=== PATIENT | female | born 1950 | race Caucasian/White ===

== ENCOUNTER 2020-10-15 07:36 | Outpatient (REF) | payer MEDICARE, SELFPAY ==
[2020-10-15 08:28] LABS: MANUAL DIFF FLAG NO
[2020-10-15 08:33] LABS: Basophils Percent Auto 0.3 % (0-2); Eosinophils Absolute Auto 0.1 X10*3/uL (0.0-0.4); Eosinophils Percent Auto 1.9 % (0-4); Hematocrit 42.3 % (37-47); Hemoglobin 14.2 g/dl (12.0-16.0); Imm Gran Abs Auto 0.01 X10*3/uL (0.00-0.03); Imm Gran Pct Auto 0.2 % (0.0-0.4); Lymphocytes Absolute Auto 2.2 X10*3/uL (1.2-4.9); Lymphocytes Percent Auto 35.6 % (20-40); Mean Corpuscular HGB Conc 33.6 g/dl (31.0-35.0); Mean Corpuscular Hemoglobin 29.8 pg (27.0-33.0); Mean Corpuscular Volume 88.7 fL (80-98); Mean Platelet Volume 8.4 fL (9.4-12.3); Monocytes Absolute Auto 0.4 X10*3/uL (0.1-1.2); Monocytes Percent Auto 6.3 % (2-11); Neutrophils Absolute Auto 3.4 X10*3/uL (2.0-8.3); Neutrophils Percent Auto 55.7 % (45-73); Platelet Count 282 X10*3/uL (160-400); Red Blood Count 4.77 X10*6/uL (4.20-5.50); Red Cell Distribution Width 12.1 % (11.0-16.0); White Blood Count 6.2 X10*3/uL (4.8-10.8)
[2020-10-15 08:52] LABS: Alanine Aminotransferase 32 U/L (0-31); Albumin Level 4.1 g/dL (3.5-5.0); Alkaline Phosphatase 105 U/L (39-117); Anion Gap 13 (12-20); Aspartate Amino Transferase 23 U/L (5-31); Bilirubin Total 0.8 mg/dL (0.0-1.0); Blood Urea Nitrogen 14 mg/dL (9-16); Calcium 8.8 mg/dL (8.4-10.2); Carbon Dioxide 27 mmol/L (22-29); Chloride 105 mmol/L (96-108); Cholesterol 198 mg/dL; Estimated Glomerular Filt Rate > 60; Glucose Fasting 86 mg/dL (60-99); HDL Cholesterol 54 mg/dL; LDL Cholesterol Calculated 116 mg/dl; Potassium 4.8 mmol/l (3.3-5.1); Sodium 140 mmol/L (135-145); Triglycerides 141 mg/dL
[2020-10-15 09:12] LABS: TSH reflex Free T4 2.85 mIU/mL (0.32-4.0)
== END 2020-10-15 07:37 | disposition home or self-care (01) ==
LOC: HO.LAB 07:36
PROVIDERS: Visit Provider Physician Assistant
DX: E03.9 Hypothyroidism, unspecified (principal); E78.5 Hyperlipidemia, unspecified
CPT/HCPCS: 36415; 80053; 80061; 84443; 85025

== ENCOUNTER 2021-04-17 11:07 | Outpatient (REF) | payer MEDICARE, SELFPAY ==
--- NOTE | ~2021-04-17 | MM_ITS ---
EXAMINATION: MM SCREENING DIGITAL BREAST TOMOSYNTHESIS, BILATERAL CLINICAL INFORMATION: Screening. Asymptomatic. The lifetime risk of breast cancer based on the Tyrer-Cuzick Model is 4.9%. COMPARISON: Mammography: 08/05/2020 and studies dating back to 12/03/2011 TECHNIQUE: Digital breast tomosynthesis is performed in both the craniocaudal and mediolateral oblique views along with computer-aided detection (CAD). Synthesized 2D images are generated from the tomosynthesis. FINDINGS: The breasts are heterogeneously dense, which may obscure small masses (ACR BI-RADS breast composition Category c). Within the right breast there is again noted to be lobular density which is stable superiorly. There is a new 5 mm circumscribed density seen about the lateral aspect of the right breast not well seen on mediolateral oblique study. Recommend spot compression film and ultrasound of the right breast laterally. There is a new 5 mm retroareolar density with question of calcification adjacent to a stable circumscribed density. Spot magnification view is recommended as well as ultrasound examination of the left breast. MM/MM tomosynthesis screening BI IMPRESSION: Bilateral breast densities for which further evaluation with spot compression views and possible ultrasound recommended. ASSESSMENT: BI-RADS 0: Incomplete - Need Additional Imaging Evaluation RECOMMENDATION: 1. Additional views of the bilateral breasts. 2. Targeted ultrasound if warranted after review of the additional views. 3. Radiology department staff will contact the patient for additional imaging. This patient's information was entered into a reminder system with a target due date for their next mammogram.
== END 2021-04-17 11:08 | disposition home or self-care (01) ==
LOC: HO.MAMMO 11:07
PROVIDERS: Visit Provider Physician Assistant
DX: Z12.31 Encounter for screening mammogram for malignant neoplasm of breast (principal)
CPT/HCPCS: 77063; 77067

== ENCOUNTER 2021-04-29 10:53 | Outpatient (REF) | payer MEDICARE, SELFPAY ==
--- NOTE | ~2021-04-29 | MM_ITS ---
EXAMINATION: MM DIAGNOSTIC DIGITAL BREAST TOMOSYNTHESIS, BILATERAL US DIAGNOSTIC ULTRASOUND BREAST, LEFT CLINICAL INFORMATION: Recall from screening for new 5 mm asymmetric nodular density outer right breast on CC view and new 5 mm left retroareolar nodule with question of calcification adjacent to old old circumscribed stable nodule. No known family history breast cancer. TC score 5%. COMPARISON: Mammography: 04/17/2021, 08/05/2020, 02/01/2020, 01/29/2020 TECHNIQUE: Right: Digital breast tomosynthesis is performed. 2D images are generated from the tomosynthesis. The following views are obtained: 3-D spot CC x2, 3-D spot ML. Left: Digital mammography magnification views in CC, ML, and spot ML views. Ultrasound left breast is targeted to the upper outer retroareolar region. Grayscale imaging and color Doppler are performed without and with harmonics. FINDINGS: There are scattered areas of fibroglandular density (ACR BI-RADS breast composition Category b). The right breast additional views show no persistent small nodular asymmetry outer quadrant. The remainder of fibroglandular densities are similar to prior studies. Additional views left breast demonstrate new fine punctate grouped calcifications overlying nodule 1:00 retroareolar position. The calcifications overlying a new 5 mm nodule adjacent to a chronic nonmineralized circumscribed nodule. Ultrasound 5 x 4 mm simple cyst retroareolar 12:00 position. There is an adjacent complicated cyst of similar size with subtle punctate foci of increased echogenicity likely representing the calcifications on mammography. No focal duct ectasia. No skin thickening. No associated color flow. Differential considerations include calcifications associated with fibrocystic change, papilloma, or other. Results are discussed with the patient at time of visit. The right breast is unchanged from prior study and may be reassessed at routine annual screening in one year. Recommend sampling left breast calcifications. Preliminary report and recommendation called to chief medical physicist (Constance) for provider AIDAN Webber on 04/29/2021. MM/MM tomosynthesis added view BI IMPRESSION: Left: New punctate calcifications overlying complicated cystic nodule retroareolar breast. Recommend tissue sampling. Right: Additional imaging demonstrates no persistent nodular asymmetry in the imaging area of recent concern. ASSESSMENT: BI-RADS 4: Suspicious (subcategory 4A: Low suspicion for malignancy) RECOMMENDATION: Stereotactic sampling left breast calcifications. If the retroareolar location of the lesion is problematic, then procedure may be converted to ultrasound guided biopsy at same visit. This patient's information was entered into a reminder system with a target due date for their next mammogram.
== END 2021-04-29 10:54 | disposition home or self-care (01) ==
LOC: HO.MAMMO 10:53
PROVIDERS: Visit Provider Physician Assistant
DX: R92.2 Inconclusive mammogram (principal)
CPT/HCPCS: 76642; 77062; 77066

== ENCOUNTER 2021-05-08 09:46 | Outpatient (REF) | payer MEDICARE, SELFPAY ==
--- NOTE | ~2021-05-08 | MM_ITS ---
EXAMINATION: STEREOTACTIC TOMOSYNTHESIS-GUIDED VACUUM-ASSISTED BREAST BIOPSY, LEFT SPECIMEN RADIOGRAPH, LEFT POST PROCEDURE DIGITAL MAMMOGRAM, LEFT CLINICAL INFORMATION: New punctate calcifications overlying small mildly complicated cystic nodule retroareolar left breast. No family history breast cancer. TC score 5%. COMPARISON: Mammography 04/17/2021, 04/29/2021; targeted left breast ultrasound 04/29/2021. TECHNIQUE/PROCEDURE: Informed consent was obtained from the patient after discussion of the benefits, risks, and alternatives to biopsy today. Patient appeared to understand. Gave opportunity for questions. Patient signed consent form. BIOPSY TABLE: [employer] Aff[employer]one Biopsy System. LESION: Grouped calcifications anterior 12:00 left breast. LOCAL ANESTHESIA: 8 mL 1% lidocaine; 10 mL 1% lidocaine with epinephrine. DERMATOTOMY: Single skin sahil dermatotomy performed. NEEDLE: [employer] Eviva 9-gauge vacuum assisted core biopsy device. APPROACH: lateral medial. TARGETING: Digital breast tomosynthesis used for targeting. CORES: 8. CLIP: [employer] Cylinder-shaped marker. SPECIMEN RADIOGRAPH: Specimen radiograph is taken in separate room using digital mammography. The index calcifications are in the excised cores. There are over 10 fine calcifications in the cores. POST PROCEDURE UNILATERAL DIGITAL MAMMOGRAM: The post biopsy mammogram is performed in separate room using separate digital mammography equipment from the biopsy procedure. CC and ML views are obtained. There are scattered areas of fibroglandular density (breast composition category: b). The clip marker is in position. The calcifications are markedly decreased at the biopsy site consistent with the sampling. There is a postbiopsy hematoma measuring approximately 2 cm in diameter. A follow up MLO view was then obtained 30 minutes after further compression and confirmed no change in size of hematoma. Home instructions reviewed with the patient. Final pathology results are pending. MM/MM stereotactic biopsy LT IMPRESSION: 1. Digital tomosynthesis-guided core biopsy left breast with clip placement. 2. Specimen radiograph taken and post procedure mammogram. There is satisfactory positioning of the biopsy clip. There is a post procedure hematoma approximately 2 cm. 3. Final pathology results pending. An addendum report will be issued.
== END 2021-05-08 09:47 | disposition home or self-care (01) ==
LOC: HO.MAMMO 09:46
PROVIDERS: Visit Provider Surgery
DX: N63.25 Unspecified lump in the left breast, overlapping quadrants (principal); R92.1 Mammographic calcification found on diagnostic imaging of breast
CPT/HCPCS: 19081; 88305; 99202

== ENCOUNTER → 2021-05-12 11:44 | Outpatient (BNVA) | payer MEDICARE, SELFPAY | PROVIDERS: PCP Physician Assistant; Referring Provider Physician Assistant; Visit Provider Surgery | DX: R92.1 Mammographic calcification found on diagnostic imaging of breast (principal) | CPT/HCPCS: 99212 ==

== ENCOUNTER 2021-05-15 07:18 | Outpatient (REF) | payer MEDICARE, SELFPAY ==
[2021-05-15 08:19] LABS: MANUAL DIFF FLAG NO
[2021-05-15 08:37] LABS: Basophils Percent Auto 0.4 % (0-2); Eosinophils Absolute Auto 0.1 X10*3/uL (0.0-0.4); Hematocrit 45.7 % (37-47); Hemoglobin 15.2 g/dl (12.0-16.0); Imm Gran Abs Auto 0.02 X10*3/uL (0.00-0.03); Imm Gran Pct Auto 0.3 % (0.0-0.4); Lymphocytes Absolute Auto 2.8 X10*3/uL (1.2-4.9); Lymphocytes Percent Auto 39.7 % (20-40); Mean Corpuscular HGB Conc 33.3 g/dl (31.0-35.0); Mean Corpuscular Hemoglobin 29.7 pg (27.0-33.0); Mean Corpuscular Volume 89.4 fL (80-98); Mean Platelet Volume 8.6 fL (9.4-12.3); Monocytes Absolute Auto 0.4 X10*3/uL (0.1-1.2); Monocytes Percent Auto 6.2 % (2-11); Neutrophils Absolute Auto 3.6 X10*3/uL (2.0-8.3); Neutrophils Percent Auto 51.4 % (45-73); Platelet Count 316 X10*3/uL (160-400); Red Blood Count 5.11 X10*6/uL (4.20-5.50); Red Cell Distribution Width 12.2 % (11.0-16.0)
[2021-05-15 08:49] LABS: Alanine Aminotransferase 26 U/L (0-31); Albumin Level 4.3 g/dL (3.5-5.0); Alkaline Phosphatase 110 U/L (39-117); Anion Gap 12 (12-20); Aspartate Amino Transferase 21 U/L (5-31); Bilirubin Total 0.7 mg/dL (0.0-1.0); Blood Urea Nitrogen 12 mg/dL (9-16); Calcium 9.6 mg/dL (8.4-10.2); Carbon Dioxide 27 mmol/L (22-29); Chloride 108 mmol/L (96-108); Cholesterol 203 mg/dL; Estimated Glomerular Filt Rate > 60; Glucose Fasting 94 mg/dL (60-99); HDL Cholesterol 58 mg/dL; LDL Cholesterol Calculated 113 mg/dl; Potassium 4.6 mmol/L (3.3-5.1); Sodium 142 mmol/L (135-145); Total Protein 7.3 g/dL (6.5-8.0); Triglycerides 163 mg/dL
[2021-05-15 09:13] LABS: TSH reflex Free T4 3.36 uIU/mL (0.32-4.0)
== END 2021-05-15 07:19 | disposition home or self-care (01) ==
LOC: HO.LAB 07:18
PROVIDERS: PCP Physician Assistant; Visit Provider Physician Assistant
DX: E03.9 Hypothyroidism, unspecified (principal); E78.5 Hyperlipidemia, unspecified
CPT/HCPCS: 36415; 80053; 80061; 84443; 85025

== ENCOUNTER 2021-06-11 09:46 | Outpatient (REF) | payer MEDICARE, SELFPAY ==
--- NOTE | ~2021-06-11 | MM_ITS ---
EXAMINATION: BONE DENSITOMETRY CLINICAL INDICATION: Asymptomatic menopausal state. COMPARISON: Baseline BD dated 03/11/2018. TECHNIQUE: Using a [employer] DXA System (software version: 13.1) manufactured by [employer], dual-energy x-ray absorptiometry was performed of the lumbar spine and left hip. The images are of good technical quality. Summary results are attached. FINDINGS: AP SPINE L1-L4: Current: BMD 1.362 g/cm2, Z-score 2.9, T-score 1.5, normal, 4.7% increase from baseline (<5% change is not significant). Baseline: BMD 1.301 g/cm2. LEFT FEMUR, NECK: Current: BMD 0.944 g/cm2, Z-score 0.8, T-score -0.7, normal. Baseline: BMD 1.014 g/cm2. LEFT FEMUR, TOTAL: Current: BMD 0.988 g/cm2, Z-score 1.0, T-score -0.2, normal, 5.6% decrease from baseline (<5% change is not significant). Baseline: BMD 1.047 g/cm2. IDENTIFIED RISK FACTORS: Menopause. HISTORY OF FRACTURE: None listed. MEDICATIONS: Vitamin D. MM/XR DEXA axial skeleton IMPRESSION: 1. DIAGNOSIS: Normal bone density based on the lowest T-score value of -0.7 in the femoral neck applying World Health Organization criteria. 2. 10-YEAR FRACTURE RISK PREDICTION, FRAX: According to the guidelines, FRAX calculation should only be performed on patients in the osteopenia bone density category. Therefore, FRAX was not performed on this patient. 3. Treatment Recommendations: NOF guidelines recommend consideration for treatment in postmenopausal women and men age 50 and older presenting with the following: -A hip or vertebral (clinical or morphometric) fracture. -T-score less than or equal to -2.5 at the femoral neck or spine after appropriate evaluation to exclude secondary causes. -Low bone mass at the hip or spine and a 10-year fracture probability by FRAX of greater than or equal to 3% for hip fracture or greater than or equal to 20% for major osteoporotic fracture based on the [place] adapted WHO algorithm. 4. Other Recommendations: All treatment decisions require clinical judgment and consideration of individual patient factors, including patient preferences, comorbidities, previous drug use, risk factors not captured in the FRAX model (e.g. frailty, falls, vitamin D deficiency, increased bone turnover, interval significant decline in bone density) and possible under or overestimation of fracture risk by FRAX. FUTURE SCAN RECOMMENDATION: People with diagnosed cases of osteoporosis or at high risk for fracture should have regular bone mineral density tests. For patients eligible for Medicare, routine testing is allowed once every 2 years. The testing frequency can be increased to one year for patients who have rapidly progressing disease, those who are receiving or discontinuing medical therapy to restore bone mass, or have additional risk factors.
== END 2021-06-11 09:47 | disposition home or self-care (01) ==
LOC: HO.MAMMO 09:46
PROVIDERS: Visit Provider Physician Assistant
DX: Z13.820 Encounter for screening for osteoporosis (principal); Z78.0 Asymptomatic menopausal state; Z79.899 Other long term (current) drug therapy
CPT/HCPCS: 77080

== ENCOUNTER 2021-11-12 13:56 | Outpatient (REF) | payer MEDICARE, SELFPAY ==
--- NOTE | ~2021-11-12 | MM_ITS ---
EXAMINATION: MM DIAGNOSTIC DIGITAL BREAST TOMOSYNTHESIS, LEFT CLINICAL INFORMATION: Benign left stereotactic biopsy 05/08/2021 (benign breast tissue with fibrocystic changes and microcalcifications). Post biopsy hematoma. Reassess new baseline post sampling. The lifetime risk of breast cancer based on the Tyrer-Cuzick Model is 6%. COMPARISON: Mammography: 05/08/2021, 04/29/2021, 04/17/2021 TECHNIQUE: Digital breast tomosynthesis is performed in both the craniocaudal and mediolateral oblique views along with computer-aided detection (CAD). Synthesized 2D images are generated from the tomosynthesis. FINDINGS: There are scattered areas of fibroglandular density (ACR BI-RADS breast composition Category b). There is biopsy clip marker periareolar 12:30 position. The post biopsy hematoma is no longer demonstrated. There is no significant mass. No grouped calcifications. Skin contours are smooth. Results are discussed with the patient at time of visit. MM/MM tomosynthesis diagnostic LT IMPRESSION: No mammographic evidence of malignancy. Interval resolution post biopsy hematoma since prior study 05/08/2021. ASSESSMENT: BI-RADS 1: Negative RECOMMENDATION: Routine annual mammography screening. This patient's information was entered into a reminder system with a target due date for their next mammogram.
== END 2021-11-12 13:57 | disposition home or self-care (01) ==
LOC: HO.MAMMO 13:56
PROVIDERS: Absent Provider Physician Assistant; Visit Provider Physician Assistant
DX: R92.1 Mammographic calcification found on diagnostic imaging of breast (principal)
CPT/HCPCS: 77061; 77065

== ENCOUNTER 2022-04-27 07:49 | Outpatient (REF) | payer MEDICARE, SELFPAY ==
--- NOTE | ~2022-04-27 | MM_ITS ---
EXAMINATION: MM SCREENING DIGITAL BREAST TOMOSYNTHESIS, BILATERAL CLINICAL INFORMATION: Screening. Asymptomatic. The lifetime risk of breast cancer based on the Tyrer-Cuzick Model is 5%. COMPARISON: Mammography: November 12, 2021 and studies dating back to December 12, 2013 TECHNIQUE: Digital breast tomosynthesis is performed in both the craniocaudal and mediolateral oblique views along with computer-aided detection (CAD). Synthesized 2D images are generated from the tomosynthesis. FINDINGS: The breasts are heterogeneously dense, which may obscure small masses (ACR BI-RADS breast composition Category c). There are no new significant masses, abnormal calcifications, or other abnormalities. There is stability of circumscribed lobular density within the superior aspect of the right breast. There is a stable region of asymmetric breast tissue about the upper outer aspect of the left breast. MM/MM tomosynthesis screening BI IMPRESSION: There are no significant changes from prior study. ASSESSMENT: BI-RADS 2: Benign RECOMMENDATION: Routine annual mammography screening. This patient's information was entered into a reminder system with a target due date for their next mammogram.
== END 2022-04-27 07:50 | disposition home or self-care (01) ==
LOC: HO.MAMMO 07:49
PROVIDERS: PCP Physician Assistant; Visit Provider Physician Assistant
DX: Z12.31 Encounter for screening mammogram for malignant neoplasm of breast (principal)
CPT/HCPCS: 77063; 77067

== ENCOUNTER 2022-05-15 07:10 | Outpatient (REF) | payer MEDICARE, SELFPAY ==
[2022-05-15 08:04] LABS: Hematocrit 45.3 % (37.0-47.0); Hemoglobin 15.1 g/dl (12.0-16.0); Mean Corpuscular HGB Conc 33.3 g/dl (31.0-35.0); Mean Corpuscular Hemoglobin 29.3 pg (27.0-33.0); Mean Platelet Volume 8.3 fL (9.4-12.3); Platelet Count 297 X10*3/uL (160-400); Red Blood Count 5.15 X10*6/uL (4.20-5.50); Red Cell Distribution Width 12.1 % (11.0-16.0); White Blood Count 7.3 X10*3/uL (4.8-10.8)
[2022-05-15 08:24] LABS: Alanine Aminotransferase 36 U/L (0-31); Albumin Level 4.2 g/dL (3.5-5.0); Alkaline Phosphatase 118 U/L (39-117); Anion Gap 13 (12-20); Aspartate Amino Transferase 26 U/L (5-31); Bilirubin Total 0.8 mg/dL (0.0-1.0); Blood Urea Nitrogen 16 mg/dL (9-16); Carbon Dioxide 27 mmol/L (22-29); Chloride 110 mmol/L (96-108); Cholesterol 216 mg/dL; Estimated Glomerular Filt Rate > 60; Glucose Fasting 95 mg/dL (60-99); HDL Cholesterol 57 mg/dL; LDL Cholesterol Calculated 131 mg/dl; Potassium 4.8 mmol/L (3.3-5.1); Sodium 145 mmol/L (135-145); Total Protein 7.3 g/dL (6.5-8.0); Triglycerides 142 mg/dL
[2022-05-15 08:45] LABS: TSH reflex Free T4 3.68 uIU/mL (0.32-4.0)
== END 2022-05-15 07:11 | disposition home or self-care (01) ==
LOC: HO.LAB 07:10
PROVIDERS: PCP Physician Assistant; Visit Provider Physician Assistant
DX: E03.9 Hypothyroidism, unspecified (principal); E78.5 Hyperlipidemia, unspecified
CPT/HCPCS: 36415; 80053; 80061; 84443; 85027

== ENCOUNTER 2022-11-06 07:23 | Outpatient (REF) | payer MEDICARE, SELFPAY ==
[2022-11-06 08:36] LABS: Alanine Aminotransferase 33 U/L (0-31); Albumin Level 4.2 g/dL (3.5-5.0); Alkaline Phosphatase 115 U/L (39-117); Anion Gap 14 (12-20); Aspartate Amino Transferase 22 U/L (5-31); Bilirubin Total 0.9 mg/dL (0.0-1.0); Blood Urea Nitrogen 14 mg/dL (9-16); Calcium 9.7 mg/dL (8.4-10.2); Carbon Dioxide 27 mmol/L (22-29); Chloride 106 mmol/L (96-108); Cholesterol 206 mg/dL; Estimated Glomerular Filt Rate > 60; Glucose Fasting 99 mg/dL (60-99); HDL Cholesterol 62 mg/dL; LDL Cholesterol Calculated 121 mg/dl; Potassium 4.5 mmol/L (3.3-5.1); Sodium 142 mmol/L (135-145); Total Protein 7.1 g/dL (6.5-8.0); Triglycerides 115 mg/dL
== END 2022-11-06 07:24 | disposition home or self-care (01) ==
LOC: HO.LAB 07:23
PROVIDERS: PCP Physician Assistant; Visit Provider Nurse Practitioner Family
DX: E78.5 Hyperlipidemia, unspecified (principal)
CPT/HCPCS: 36415; 80053; 80061

== ENCOUNTER 2023-04-30 08:09 | Outpatient (REF) | payer MEDICARE, SELFPAY ==
--- NOTE | ~2023-04-30 | MM_ITS ---
EXAMINATION: MM SCREENING DIGITAL BREAST TOMOSYNTHESIS, BILATERAL CLINICAL INFORMATION: Screening. Asymptomatic. The lifetime risk of breast cancer based on the Tyrer-Cuzick Model is 4%. COMPARISON: Multiple prior breast imaging studies including most recent mammography 04/27/2022. TECHNIQUE: Digital breast tomosynthesis is performed in both the craniocaudal and mediolateral oblique views along with computer-aided detection (CAD). Synthesized 2D images are generated from the tomosynthesis. FINDINGS: There are scattered areas of fibroglandular density (ACR BI-RADS breast composition Category b). Right breast parenchymal pattern is similar to prior studies and there is no developing density or architectural abnormality. There are scattered benign bilateral predominantly coarse and some smaller round calcifications. Biopsy clip marker left retroareolar position. The axilla and skin contours are unremarkable. Left CC view has asymmetric density posterior outer breast 7 cm from nipple without MLO correlate likely incompletely compressed glandular tissue or summation artifact. MM/MM tomosynthesis screening BI IMPRESSION: Left: -Asymmetric density posterior outer breast likely summation artifact or incompletely compressed glandular tissue. Right: -No mammographic evidence of malignancy. ASSESSMENT: BI-RADS 0: Incomplete - Need Additional Imaging Evaluation RECOMMENDATION: 1. Additional views left breast (spot CC, rolled CC x2). 2. Targeted ultrasound if warranted after review of the additional views. 3. Radiology department staff will contact the patient for additional imaging. This patient's information was entered into a reminder system with a target due date for their next mammogram.
== END 2023-04-30 08:10 | disposition home or self-care (01) ==
LOC: HO.MAMMO 08:09
PROVIDERS: PCP Physician Assistant; Referring Provider Obstetrics & Gynecology; Visit Provider Physician Assistant
DX: Z12.31 Encounter for screening mammogram for malignant neoplasm of breast (principal)
CPT/HCPCS: 77063; 77067

== ENCOUNTER 2023-05-14 10:52 | Outpatient (REF) | payer MEDICARE, SELFPAY ==
--- NOTE | ~2023-05-14 | MM_ITS ---
EXAMINATION: MM DIAGNOSTIC DIGITAL BREAST TOMOSYNTHESIS, LEFT US BREAST TARGETED, LEFT CLINICAL INFORMATION: Density deep lateral aspect left breast COMPARISON: Mammography: 04/30/2023 and studies dating back to TECHNIQUE: Digital breast tomosynthesis is performed. 2D images are generated from the tomosynthesis. The following views are obtained: Spot compression craniocaudal views and rolled craniocaudal views. Targeted left breast ultrasound laterally. FINDINGS: There are scattered areas of fibroglandular density (ACR BI-RADS breast composition Category b). Additional imaging demonstrates persistence of an approximately 1.2 x 0.8 cm slightly lobular circumscribed density. No associated microcalcifications or spiculation identified. Targeted breast ultrasound was performed and demonstrated a circumscribed heterogeneous echotexture structure with mild increased through-sound transmission and no distal sound shadowing. There is one focal region of vascularity but which does not appear to represent a hilum of a lymph node given though on some imaging there does appear to be a hypoechoic outer rim. The lesion is wider than it is tall and measures approximately 1.1 x 0.9 x 0.4 cm in size. Targeted left breast ultrasound biopsy is recommended. Results are discussed with the patient at time of visit. MM/MM tomosynthesis added views L IMPRESSION: Left breast density 3 o'clock position approximately 6 cm from the nipple for which ultrasound-guided biopsy is recommended. ASSESSMENT: BI-RADS 4: Suspicious (subcategory 4A: Low suspicion for malignancy) RECOMMENDATION: Ultrasound-guided core biopsy left breast lesion.
== END 2023-05-14 10:53 | disposition home or self-care (01) ==
LOC: HO.MAMMO 10:52
PROVIDERS: PCP Physician Assistant; Visit Provider Physician Assistant
DX: R92.2 Inconclusive mammogram (principal)
CPT/HCPCS: 76642; 77061; 77065

== ENCOUNTER 2023-05-19 09:12 | Outpatient (REF) | payer MEDICARE, SELFPAY ==
--- NOTE | ~2023-05-19 | MM_ITS ---
EXAMINATION: ULTRASOUND GUIDED CORE BIOPSY BREAST, LEFT POST PROCEDURE DIGITAL MAMMOGRAM, LEFT CLINICAL INFORMATION: Oval nodule 3:00 left breast for tissue sampling. Prior history benign left stereotactic biopsy 05/08/2021 (benign tissue with fibrocystic changes and microcalcifications). COMPARISON: Prior breast imaging exams including most recent mammography and targeted ultrasound, 05/14/2023. FINDINGS: Proper informed consent is obtained from the patient after discussion of the procedure, potential risks and complications, and alternatives. Patient was given an opportunity for questions. The patient appeared to understand. The patient consented to the procedure and signed the consent form. GUIDANCE: Ultrasound-guided; aseptic technique. LESION: Circumscribed oval lesion 3:00 position 1.1 x 0.4 x 0.9 cm. Suspect benign complicated cyst/fibrocystic change with internal septation versus grouped microcysts. APPROACH: Oblique lateral medial. ANESTHESIA: 8 mL carbonated 1% lidocaine. DERMATOTOMY: Single skin sahil dermatotomy performed. NEEDLE: 14-gauge [employer] core biopsy device with 13.5-gauge co-axial guide needle. CORES: 4. The lesion collapsed after initial sampling and difficult to visualize for successive cores and clip placement. CLIP: [employer]; shape: open coil. The lesion is difficult to visualize post sampling and clip placed in the vicinity of the biopsy site. POST PROCEDURE UNILATERAL DIGITAL MAMMOGRAM: The post biopsy mammogram is performed in separate room using separate digital mammography equipment from the biopsy procedure. CC and ML views are obtained. There are scattered areas of fibroglandular density (breast composition category: b). The clip marker is in position. No gross hematoma. There is also a cylinder shaped clip marker 12:00 periareolar breast related to a prior benign left stereotactic biopsy, 2020. The patient tolerated the procedure well. No immediate complications. Home instructions reviewed with the patient. Final pathology results are pending. MM/MM diagnostic mammo unilat LT IMPRESSION: 1. Status post ultrasound-guided core biopsy left breast. 2. Clip placed: [employer]; shape: open coil. 3. Pathology pending. An addendum report will be issued.
[2023-05-19] MEDS: Lidocaine HCl 1 % 20 ML VIAL 9 ML SUBCUT (11:15)
[2023-05-19] MEDS: Sodium Bicarbonate 8.4% 50 MEQ/50 ML VIAL SUBCUT (11:16)
== END 2023-05-19 09:13 | disposition home or self-care (01) ==
LOC: HO.MAMMO 09:12
PROVIDERS: PCP Physician Assistant; Visit Provider Surgery
DX: N63.25 Unspecified lump in the left breast, overlapping quadrants (principal)
CPT/HCPCS: 19083; 77062; 77065; 88305; 99202; A4648

== ENCOUNTER → 2023-05-26 10:50 | Outpatient (BNVA) | payer MEDICARE, SELFPAY | PROVIDERS: PCP Physician Assistant; Visit Provider Surgery | DX: N63.20 Unspecified lump in the left breast, unspecified quadrant (principal); Z78.0 Asymptomatic menopausal state | CPT/HCPCS: 99212 ==

== ENCOUNTER 2023-05-29 07:23 | Outpatient (REF) | payer MEDICARE, SELFPAY | END 2023-05-29 07:24 | disposition home or self-care (01) | LOC: HO.LAB 07:23 | PROVIDERS: PCP Physician Assistant; Visit Provider Physician Assistant | DX: E03.9 Hypothyroidism, unspecified (principal); E78.5 Hyperlipidemia, unspecified | CPT/HCPCS: 36415; 80053; 80061; 81001; 84443; 85027 ==

== ENCOUNTER 2023-06-02 07:55 | Outpatient (AMB) | payer MEDICARE, SELFPAY ==
[2023-06-02 07:56] VITALS: BP 142/80; PULSE 71; O2SAT 98; BMI 28.9
--- NOTE | 2023-06-02 07:56 | A.OFFPC_ITS ---
Vital Signs 06/02/23 07:56 Height 5 ft 3 in Weight 163 lb BMI 28.9 BP 142/80 H Blood Pressure Location Lt brachial Position Sitting Pulse 71 Pulse Source Pulse Oximeter Pulse Oximetry (%) 98 Oxygen Delivery Method Room Air Intake Visit Reasons: f/u HYpothy/ HLD Allergies Lisinopril Allergy (Unknown, Uncoded 06/02/23 08:06) cough Medication List - Last Reconciled 06/02/23 by Cb Nelson PA-C aspirin 81 mg PO DAILY atorvastatin 20 mg PO DAILY 90 days cholecalciferol (vitamin D3) 50 mcg PO DAILY ibuprofen 800 mg PO TID 15 days levothyroxine 50 mcg PO DAILY oxybutynin chloride ER 5 mg PO DAILY 30 days vitamin B complex (B Complex-Vitamin B12 tablet) 1 tab PO DAILY Tobacco use date assessed: 03/03/23 Fall risk assessment: No Falls in past year Last assessed Fall Risk: 06/02/23 Dental Screening Dental Screen Date: 06/02/23 Did you have a dental visit in the last 12 months?: Yes Did you have a dental problem in the last 6 months where you did not have access to dental care?: No Was dental information given to patient?: Patient has dentist HPI f/u HYpothy/ HLD HPI Details Patient is a 72-year-old female here today for follow-up visit.? Patient has a past medical history significant for hypothyroidism, hyperlipidemia, HTN. Recently had abnormal mammogram and needed stereotactic biopsy, pathology is benign. Concern--> she reports over the last 3-6 months she has had 2 urinary tract infections requiring antibiotics.? She has since been having urinary urgency and decreased urinary output.? She has started to use urinary pads as she does lose urine from time to time. 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 Hypothyroidism:? Has been clinically and chemically euthyroid quite a while now.? Continues on levothyroxine 50 mcg with good maintenance of her TSH. .. Hypertension: Has a history of hypertension, has been taken off lisinopril due to age-related cough. Continues to have elevated blood pressures at MD visits. Otherwise asymptomatic without any chest pain, headache or vision issues. Will start losartan 25 mg for better blood pressure control. Advised to monitor blood pressure at home with goal blood pressure be below 140/90 .. Hyperlipidemia:? Patient continues on statin therapy without any side effect.? Most recent fasting lipid panel showing acceptable LDL. Laboratory Tests 05/15/22 05/29/23 05/29/23 07:23 07:43 07:43 RBC 5.05 Creatinine 0.87 Fasting Glucose 103 H Cholesterol 184 LDL Cholesterol, C alc 116 TSH 3.68 2.93 .. [facility] Medical History Breast calcification, left Post-menopausal Surgical History History of appendectomy History of back surgery History of biopsy History of colonoscopy History of tonsillectomy and adenoidectomy Family History Maternal Uncle Colon cancer Social History Housing: House Alcohol intake: current Alcohol intake frequency: holidays/special occasions only Patient Tobacco Use Status: Never used Tobacco e-Cigarette/Vaping Use: Never Used Second Hand Smoke Exposure: No service: No Current occupational status: retired Cognitive needs: No Hearing needs: No Vision needs: Yes (glasses) Female Reproductive History Menstrual Age of Menarche: 14 Questionnaire PHQ-9 Over the last 2 weeks, how often have you been bothered by any of the following problems? 1. Little interest or pleasure in doing things: not at all 2. Feeling down, depressed, or hopeless: not at all 3. Trouble falling or staying asleep, or sleeping too much: not at all 4. Feeling tired or having little energy: not at all 5. Poor appetite or overeating: not at all 6. Feeling bad about yourself - or that you are a failure or have let yourself or your family down: not at all 7. Trouble concentrating on things, such as reading the newspaper or watching television: not at all 8. Moving or speaking so slowly that other people could have noticed. Or the opposite - being so fidgety or restless that you have been moving around a lot more than usual: not at all 9. Thoughts that you would be better off or of hurting yourself in some way: not at all Total score: 0 Depression Screening Interpretation: Negative Source: Developed by Drs. Dominic Sheppard, Nova Schulz, August Suarez and colleagues, with an educational stephenie from [employer]. Thrive Questionnaire Date Thrive assessed: 03/03/23 AUDIT C Alcohol Use Questionnaire (AUDIT-C) 1. How often do you have a drink containing alcohol?: Never Total Score: 0 ASHELY-7 AMB Questionnaire ASHELY-7 Date ASHELY - 7 assessed: 03/03/23 Source: Developed by Drs. Dominic Sheppard, Nova Schulz, August Suarez and colleagues, with an educational stephenie from [employer]. Review of Systems Const Denies headache(s) Eyes Denies loss of vision ENT Denies vertigo, Denies dizziness, Denies headache(s) and Denies sore throat Card Denies chest pain, Denies leg edema and Denies lightheadedness Resp Denies cough, Denies hemoptysis and Denies wheezing GI Denies abdominal pain, Denies melena, Denies constipation, Denies diarrhea and Denies vomiting Denies urinary frequency, Denies dysuria and Denies urinary urgency Musc Denies arthralgias, Denies joint swelling, Denies numbness and Denies tingling Neuro Denies Abnormal speech present, Denies behavioral changes, Denies vertigo, Denies dizziness, Denies headache(s), Denies loss of vision, Denies memory loss, Denies numbness and Denies tingling Psych Denies anxiety, Denies behavioral changes, Denies depression, Denies memory loss and Denies panic attacks Luis/Lymph Denies easy bleeding and Denies easy bruising Aller/Immun Denies wheezing Physical exam (Primary Care) Vital Signs: Last Vital Signs Pulse 71 06/02/23 07:56 BP 142/80 H 06/02/23 07:56 Pulse Ox 98 06/02/23 07:56 Oxygen Delivery Method Room Air 06/02/23 07:56 BMI result Body Mass Index 28.9 Tobacco/Smoking Status: Tobacco use Status Tobacco use date assessed 03/03/23 06/02/23 08:00 Patient Tobacco Use Status Never used Tobacco 06/02/23 08:00 e-Cigarette/Vaping Use Never Used 06/02/23 08:00 PHQ-9: PHQ-9 Score PHQ-9: Total score 0 06/02/23 08:08 Depression Screening Interpretation: Negative Thrive Assessment: Date of Thrive Assessment Date Thrive assessed 03/03/23 06/02/23 08:00 Const General: healthy appearing, no acute distress, alert and awake Nutritional Appearance: well nourished Orientation/consciousness: oriented to person, oriented to place and oriented to time HENMT Ears: TM's normal bilaterally General nose exam: Normal nasal mucous membranes and turbinates present Eyes Conjunctivae: conjunctivae normal Sclerae: sclerae normal Pupils: Equal, round and reactive pupils present Neck Neck: Yes no lymphadenopathy and Yes no JVD Thyroid: Thyroid normal Carotids: no bruits Resp Effort & Inspection: normal respiratory effort and not tachypneic Auscultation: no crackles, no rales, no rhonchi and no wheezes Cardio Rate: regular rate Rhythm: regular rhythm Heart sounds: no murmurs and normal S1 and S2 GI Palpation (GI): Soft to palpation, nontender, no hepatomegaly and no splenomegaly Auscultation: normal bowel sounds Skin General skin exam: no rashes or lesions noted and dry skin Neuro General: oriented to person, oriented to place and oriented to time Cranial nerves: Yes Equal, round and reactive pupils present Speech: No Abnormal speech present Gait exam (Neuro): Normal gait present Motor exam (neuro): no tremor noted Extrem Right upper extremity: full ROM Left upper extremity: full ROM Right lower extremity: full ROM; no edema Left lower extremity: full ROM; no edema Psych Mental Status: mental status grossly normal Speech and movement: Normal speech and movement present Affect: normal affect Attitude: cooperative Thought process: Normal thought process present Assessment and Plan Assessment & Plan (1) Hypothyroidism: Code(s): E03.9 - Hypothyroidism, unspecified Qualifiers: Hypothyroidism type: unspecified Qualified Code(s): E03.9 - Hypothyroidism, unspecified Plan: Patient continues on levothyroxine 50 mcg on a daily basis. TSH has been stable (2) HLD (hyperlipidemia): Code(s): E78.5 - Hyperlipidemia, unspecified Qualifiers: Hyperlipidemia type: unspecified Qualified Code(s): E78.5 - Hyperlipidemia, unspecified Plan: Patient's most recent lipid panel showing appropriate total cholesterol and LDL. Will continue current dose of statin therapy with goal LDL to be below 130 (3) HTN (hypertension): Code(s): I10 - Essential (primary) hypertension Qualifiers: Hypertension type: primary hypertension Qualified Code(s): I10 - Essential (primary) hypertension Plan: Blood pressure elevated today in office, was on lisinopril and the past though had Justin cough. Will transition losartan for better blood pressure control. Advised to monitor blood pressure at home with goal blood pressure to be below 140/90 (4) Spastic bladder: Code(s): N32.89 - Other specified disorders of bladder Plan: Has been started on low-dose oxybutynin 5 mg daily with excellent relief of her urinary frequency. Medications: New losartan 25 mg PO DAILY 90 days 90 tabs 1RF I10 - Essential (primary) hypertension Changed From oxybutynin chloride ER 5 mg PO DAILY 30 days 30 tabs 2RF N32.89 - Other specified disorders of bladder To oxybutynin chloride ER 5 mg PO DAILY 90 days 90 tabs 1RF N32.89 - Other specified disorders of bladder Coding Level of Care Code Est Pt Level 4 (14029) Diagnoses Hypothyroidism E03.9 Hypothyroidism type: unspecified HLD (hyperlipidemia) E78.5 Hyperlipidemia type: unspecified HTN (hypertension) I10 Hypertension type: primary hypertension Spastic bladder N32.89
== END 2023-06-02 08:22 | disposition home or self-care (01) ==
PROVIDERS: PCP Physician Assistant; Visit Provider Physician Assistant
DX: E03.9 Hypothyroidism, unspecified (principal); E78.5 Hyperlipidemia, unspecified; I10 Essential (primary) hypertension; N32.89 Other specified disorders of bladder
CPT/HCPCS: 99214

== ENCOUNTER 2023-08-26 14:45 | Outpatient (AMB) | payer MEDICARE, SELFPAY ==
--- NOTE | 2023-08-26 14:46 | MHC.PC.OV ---
Vital Signs 08/26/23 14:47 08/26/23 14:51 Height 5 ft 3 in Weight 165 lb 6 oz BMI 29.3 BP 140/72 H 124/70 Blood Pressure Location Lt brachial Rt brachial Position Sitting Sitting Pulse 80 Pulse Source Pulse Oximeter Pulse Oximetry (%) 97 Oxygen Delivery Method Room Air Intake Visit Reasons: Ongoing back pain Intake Note: Patient is here to follow up on ongoing back pain for a month and a half. Deputy K 9 Required: No Electronics Warfare Technician: Not Required per policy Accompanied by: Self / Same As Patient Allergies Lisinopril Allergy (Unknown, Uncoded 08/26/23 14:54) cough Medication List - Last Reconciled 08/26/23 by Cb Nelson PA-C aspirin 81 mg PO DAILY atorvastatin 20 mg PO DAILY 90 days cholecalciferol (vitamin D3) 50 mcg PO DAILY ibuprofen 800 mg PO TID 15 days levothyroxine 50 mcg PO DAILY losartan 25 mg PO DAILY 90 days oxybutynin chloride ER 5 mg PO DAILY 90 days vitamin B complex (B Complex-Vitamin B12 tablet) 1 tab PO DAILY Tobacco use date assessed: 08/26/23 Fall risk assessment: No Falls in past year Last assessed Fall Risk: 08/26/23 Dental Screening Dental Screen Date: 08/26/23 Did you have a dental visit in the last 12 months?: Yes Did you have a dental problem in the last 6 months where you did not have access to dental care?: No Was dental information given to patient?: Patient has dentist HPI Ongoing back pain HPI Details Patient is a 72-year-old female here today for problem visit. She reports having Right flank pain over the last 6 weeks. She denies any trauma to her. She denies any urinary symptoms. Was started on oxybutynin for spastic bladder which has been helping the wonders if her flank pain is related to this medication. She reports her right vein pain worsens when she takes a deep breath or moves her torso otherwise has no pain to palpation. [facility] Medical History Breast calcification, left Post-menopausal Surgical History History of colonoscopy History of biopsy History of back surgery History of tonsillectomy and adenoidectomy History of appendectomy Family History Maternal Uncle Colon cancer Social History Housing: House Alcohol intake: current Alcohol intake frequency: holidays/special occasions only Patient Tobacco Use Status: Never used Tobacco e-Cigarette/Vaping Use: Never Used Second Hand Smoke Exposure: No service: No Current occupational status: retired Cognitive needs: No Hearing needs: No Vision needs: Yes (glasses) Female Reproductive History Menstrual Age of Menarche: 14 Questionnaire Thrive Questionnaire Date Thrive assessed: 03/03/23 ASHELY-7 AMB Questionnaire ASHELY-7 Date ASHELY - 7 assessed: 03/03/23 Source: Developed by Drs. Dominic Sheppard, Nova Schulz, August Suarez and colleagues, with an educational stephenie from [employer]. Physical exam (Primary Care) Vital Signs: Last Vital Signs Pulse 80 08/26/23 14:47 BP 124/70 08/26/23 14:51 Pulse Ox 97 08/26/23 14:47 Oxygen Delivery Method Room Air 08/26/23 14:47 BMI result Body Mass Index 29.3 Tobacco/Smoking Status: Tobacco use Status Tobacco use date assessed 08/26/23 08/26/23 14:53 Patient Tobacco Use Status Never used Tobacco 08/26/23 14:53 e-Cigarette/Vaping Use Never Used 08/26/23 14:53 Thrive Assessment: Date of Thrive Assessment Date Thrive assessed 03/03/23 08/26/23 14:53 Back/Spine/Pelvis Back/spine/pelvis image: 1. PAIN REPORTED IN THE OUTLINED AREA. Assessment and Plan Assessment & Plan (1) Right flank pain: Code(s): R10.9 - Unspecified abdominal pain Plan: Patient reports a month history of right flank pain upon movement of her torso or taking deep breath. Denies any thoracic or lumbar spine pain. She denies any fevers or chills. No urination issues. Was started on oxybutynin 3 months ago which has been helping her spastic bladder. Will send for kub XRAY AND renal ultrasound on right side to evaluate for nephrolithiasis Orders: Orders US renal RT Today R10.9 - Unspecified abdominal pain UA CC w/rflx Micro + Cult Today R10.9 - Unspecified abdominal pain, R30.0 - Dysuria XR ribs RT min 3V w CXR1V Today R10.9 - Unspecified abdominal pain Basic Metabolic Panel Today R10.9 - Unspecified abdominal pain XR KUB Today R10.9 - Unspecified abdominal pain Coding Level of Care Code Est Pt Level 3 (82788) Diagnoses Right flank pain R10.9
[2023-08-26 14:47] VITALS: BP 140/72; PULSE 80; O2SAT 97; BMI 29.3
[2023-08-26 14:51] VITALS: BP 124/70
== END 2023-08-26 15:14 | disposition home or self-care (01) ==
PROVIDERS: PCP Physician Assistant; Visit Provider Physician Assistant
DX: R10.9 Unspecified abdominal pain (principal)
CPT/HCPCS: 99213

== ENCOUNTER 2023-08-26 15:14 | Outpatient (REF) | payer MEDICARE, SELFPAY ==
--- NOTE | ~2023-08-26 | XR_ITS ---
EXAMINATION: XR RIBS, RIGHT WITH PA CHEST CLINICAL INFORMATION: Abdominal pain. COMPARISON: Chest radiographs dated 03/23/2019. TECHNIQUE: 3 views of the right ribs were obtained, together with a PA view of the chest. FINDINGS: Lungs are clear. No consolidation, pneumothorax, or pleural effusion. The cardiomediastinal silhouette and pulmonary vasculature are normal. No free intraperitoneal air is seen. Osseous structures are unremarkable. Ribs are intact. No fractures are identified. XR/XR ribs RT min 3V w CXR1V IMPRESSION: Unremarkable examination.
--- NOTE | ~2023-08-26 | XR_ITS ---
EXAMINATION: XR ABDOMEN KUB CLINICAL INDICATION: Abdominal pain. COMPARISON: None available. TECHNIQUE: AP view of the abdomen. FINDINGS: The bowel gas pattern is normal with no evidence of ileus or obstruction. No unusual soft tissue calcifications are noted. A metallic BB overlaps the right upper quadrant. There are multiple pelvic phleboliths. There is no acute osseous abnormality. XR/XR KUB IMPRESSION: 1. No bowel obstruction, ileus or free intraperitoneal air is seen. 2. A metallic BB overlaps the right upper quadrant.
== END 2023-08-26 15:15 | disposition home or self-care (01) ==
LOC: HO.LAB 15:14
PROVIDERS: PCP Physician Assistant; Visit Provider Physician Assistant
DX: R10.9 Unspecified abdominal pain (principal)
CPT/HCPCS: 36415; 71101; 74018; 80048; 81001

== ENCOUNTER 2023-09-03 15:21 | Outpatient (REF) | payer MEDICARE, SELFPAY ==
--- NOTE | ~2023-09-03 | US_ITS ---
EXAMINATION: US RETROPERITONEAL LIMITED (RENAL ONLY) CLINICAL INFORMATION: Unspecified abdominal pain. COMPARISON: KUB dated 08/26/2023. TECHNIQUE: Real-time imaging of the kidneys. FINDINGS: RIGHT KIDNEY: 10.8 x 4.3 x 4.4 cm (SAG x AP x TRV). The kidney is normal in size, contour, and echogenicity. Renal cortical thickness is normal. No calculi or focal parenchymal lesions. No hydronephrosis. LEFT KIDNEY: 11.6 x 4.8 x 4.7 cm (SAG x AP x TRV). The kidney is normal in size, contour, and echogenicity. Renal cortical thickness is normal. No calculi or focal parenchymal lesions. No hydronephrosis. US/US renal BI IMPRESSION: Normal renal ultrasound.
== END 2023-09-03 15:22 | disposition home or self-care (01) ==
LOC: HO.US 15:21
PROVIDERS: PCP Physician Assistant; Visit Provider Physician Assistant
DX: R10.9 Unspecified abdominal pain (principal)
CPT/HCPCS: 76775

== ENCOUNTER 2023-10-05 08:35 | Outpatient (AMB) | payer MEDICARE, SELFPAY ==
--- NOTE | 2023-10-05 08:52 | A.OFFPC_ITS ---
Vital Signs 10/05/23 08:53 Height 5 ft 3 in Weight 167 lb 4 oz BMI 29.6 BP 128/64 Blood Pressure Location Lt brachial Position Sitting Pulse 73 Pulse Source Pulse Oximeter Pulse Oximetry (%) 95 Oxygen Delivery Method Room Air Intake Visit Reasons: 3mth f/u Intake Note: Patient is here to follow up on HTN, HLD . 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 per policy Accompanied by: Self / Same As Patient Allergies Lisinopril Allergy (Unknown, Uncoded 10/05/23 09:00) cough Medication List - Last Reconciled 10/05/23 by Cb Nelson PA-C aspirin 81 mg PO DAILY atorvastatin 20 mg PO DAILY 90 days cholecalciferol (vitamin D3) 50 mcg PO DAILY ibuprofen 800 mg PO TID 15 days levothyroxine 50 mcg PO DAILY losartan 25 mg PO DAILY 90 days meloxicam 15 mg PO DAILY oxybutynin chloride ER 10 mg PO DAILY vitamin B complex (B Complex-Vitamin B12 tablet) 1 tab PO DAILY Tobacco use date assessed: 08/26/23 Fall risk assessment: No Falls in past year Last assessed Fall Risk: 10/05/23 Dental Screening Dental Screen Date: 10/05/23 Did you have a dental visit in the last 12 months?: Yes Did you have a dental problem in the last 6 months where you did not have access to dental care?: No Was dental information given to patient?: Patient has dentist HPI 3mth f/u HPI Details Patient is a 72-year-old female here today for follow-up visit.? Patient has a past medical history significant for hypothyroidism, hyperlipidemia, HTN. Most recent for right flank pain. Was sent for ultrasound and urine. She continues to have blood in urine. This has been a chronic finding. Rib x-rays were normal. Her right flank pain is not as severe. Concern-->Has recently dignosed with a neruma on her foot. She received a cortisone injection from her radiology therapist and was placed on meloxicam. Spastic bladder: Has found oxybutynin to be helpful though at 5 mg started to become ineffective. Increased dose to 10 mg though reports fatigue as a side effect. Will try to take this medication at night. Advised to consider pelvic floor therapy for her spastic bladder and urinary frequency. Of note does have chronic red blood cell per urine. Urine cytology negative. .. Hypothyroidism:? Has been clinically and chemically euthyroid quite a while now.? Continues on levothyroxine 50 mcg with good maintenance of her TSH. .. Hypertension: Blood pressure acceptable today in office. Blood pressures been well controlled with current dose of losartan. Advised to monitor blood pressure at home with goal blood pressure be below 140/90 .. Hyperlipidemia:? Patient continues on statin therapy without any side effect.? Most recent fasting lipid panel showing acceptable LDL. Laboratory Tests 05/29/23 08/26/23 08/26/23 07:40 15:23 15:45 Creatinine 0.78 Urine RBC 6-10 H 6-10 H [facility] Medical History Post-menopausal Breast calcification, left Surgical History History of colonoscopy History of biopsy History of back surgery History of tonsillectomy and adenoidectomy History of appendectomy Family History Maternal Uncle Colon cancer Social History Housing: House Alcohol intake: current Alcohol intake frequency: holidays/special occasions only Patient Tobacco Use Status: Never used Tobacco e-Cigarette/Vaping Use: Never Used Second Hand Smoke Exposure: No service: No Current occupational status: retired Cognitive needs: No Hearing needs: No Vision needs: Yes (glasses) Female Reproductive History Menstrual Age of Menarche: 14 Questionnaire Thrive Questionnaire Date Thrive assessed: 03/03/23 ASHELY-7 AMB Questionnaire ASHELY-7 Date ASHELY - 7 assessed: 03/03/23 Source: Developed by Drs. Dominic Sheppard, Nova Schulz, August Suarez and colleagues, with an educational stephenie from [employer]. Review of Systems Const Denies headache(s) Eyes Denies loss of vision ENT Denies vertigo, Denies dizziness, Denies headache(s) and Denies sore throat Card Denies chest pain, Denies leg edema and Denies lightheadedness Resp Denies cough, Denies hemoptysis and Denies wheezing GI Denies abdominal pain, Denies melena, Denies constipation, Denies diarrhea and Denies vomiting Denies urinary frequency, Denies dysuria and Denies urinary urgency Musc Denies arthralgias, Denies joint swelling, Denies numbness and Denies tingling Neuro Denies Abnormal speech present, Denies behavioral changes, Denies vertigo, Denies dizziness, Denies headache(s), Denies loss of vision, Denies memory loss, Denies numbness and Denies tingling Psych Denies anxiety, Denies behavioral changes, Denies depression, Denies memory loss and Denies panic attacks Luis/Lymph Denies easy bleeding and Denies easy bruising Aller/Immun Denies wheezing Physical exam (Primary Care) Vital Signs: Last Vital Signs Pulse 73 10/05/23 08:53 BP 128/64 10/05/23 08:53 Pulse Ox 95 10/05/23 08:53 Oxygen Delivery Method Room Air 10/05/23 08:53 BMI result Body Mass Index 29.6 Tobacco/Smoking Status: Tobacco use Status Tobacco use date assessed 08/26/23 10/05/23 08:57 Patient Tobacco Use Status Never used Tobacco 10/05/23 08:57 e-Cigarette/Vaping Use Never Used 10/05/23 08:57 Thrive Assessment: Date of Thrive Assessment Date Thrive assessed 03/03/23 10/05/23 08:57 Const General: healthy appearing, no acute distress, alert and awake Nutritional Appearance: well nourished Orientation/consciousness: oriented to person, oriented to place and oriented to time HENMT Ears: TM's normal bilaterally General nose exam: Normal nasal mucous membranes and turbinates present Eyes Conjunctivae: conjunctivae normal Sclerae: sclerae normal Pupils: Equal, round and reactive pupils present Neck Neck: Yes no lymphadenopathy and Yes no JVD Thyroid: Thyroid normal Carotids: no bruits Resp Effort & Inspection: normal respiratory effort and not tachypneic Auscultation: no crackles, no rales, no rhonchi and no wheezes Cardio Rate: regular rate Rhythm: regular rhythm Heart sounds: no murmurs and normal S1 and S2 GI Palpation (GI): Soft to palpation, nontender, no hepatomegaly and no splenomegaly Auscultation: normal bowel sounds Skin General skin exam: no rashes or lesions noted and dry skin Neuro General: oriented to person, oriented to place and oriented to time Cranial nerves: Yes Equal, round and reactive pupils present Speech: No Abnormal speech present Gait exam (Neuro): Normal gait present Motor exam (neuro): no tremor noted Extrem Right upper extremity: full ROM Left upper extremity: full ROM Right lower extremity: full ROM; no edema Left lower extremity: full ROM; no edema Psych Mental Status: mental status grossly normal Speech and movement: Normal speech and movement present Affect: normal affect Attitude: cooperative Thought process: Normal thought process present Assessment and Plan Assessment & Plan (1) Hypothyroidism: Code(s): E03.9 - Hypothyroidism, unspecified Qualifiers: Hypothyroidism type: unspecified Qualified Code(s): E03.9 - Hypothyroidism, unspecified Plan: Patient continues on levothyroxine 50 mcg on a daily basis. TSH has been stable (2) HLD (hyperlipidemia): Code(s): E78.5 - Hyperlipidemia, unspecified Qualifiers: Hyperlipidemia type: unspecified Qualified Code(s): E78.5 - Hyperlipidemia, unspecified Plan: Patient's most recent lipid panel showing appropriate total cholesterol and LDL. Will continue current dose of statin therapy with goal LDL to be below 130 (3) HTN (hypertension): Code(s): I10 - Essential (primary) hypertension Qualifiers: Hypertension type: primary hypertension Qualified Code(s): I10 - Essential (primary) hypertension Plan: Blood pressure acceptable today in office, Blood pressure has been well controlled with losartan. Advised to monitor blood pressure at home with goal blood pressure to be below 140/90 (4) Spastic bladder: Code(s): N32.89 - Other specified disorders of bladder Plan: Reports oxybutynin is helpful now at dose 10 mg. Unfortunately has side effect of sleepiness and will transition to taking this medication at night. Orders: Orders Comprehensive Dickens. Panel Fast 10/05/23 E78.5 - Hyperlipidemia, unspecified Complete Blood Count no Diff 10/05/23 E78.5 - Hyperlipidemia, unspecified TSH reflex Free T4 10/05/23 E03.9 - Hypothyroidism, unspecified Lipid Panel 10/05/23 E78.5 - Hyperlipidemia, unspecified Medications: Refilled ibuprofen 800 mg PO TID 15 days 45 tabs 1RF M54.5 - Low back pain Coding Level of Care Code Est Pt Level 4 (79829) Diagnoses Hypothyroidism, unspecified type E03.9 Hypothyroidism type: unspecified Hyperlipidemia, unspecified hyperlipidemia type E78.5 Hyperlipidemia type: unspecified Primary hypertension I10 Hypertension type: primary hypertension Spastic bladder N32.89
[2023-10-05 08:53] VITALS: BP 128/64; PULSE 73; O2SAT 95; BMI 29.6
== END 2023-10-05 09:17 | disposition home or self-care (01) ==
PROVIDERS: PCP Physician Assistant; Visit Provider Physician Assistant
DX: E03.9 Hypothyroidism, unspecified (principal); E78.5 Hyperlipidemia, unspecified; I10 Essential (primary) hypertension; N32.89 Other specified disorders of bladder
CPT/HCPCS: 99214

== ENCOUNTER 2023-11-25 14:17 | Outpatient (REF) | payer MEDICARE, SELFPAY | END 2023-11-25 14:18 | disposition home or self-care (01) | LOC: HO.MAMMO 14:17 | PROVIDERS: PCP Physician Assistant; Visit Provider Surgery | DX: R92.1 Mammographic calcification found on diagnostic imaging of breast (principal) | CPT/HCPCS: 77062; 77065 ==

== ENCOUNTER → 2023-11-25 14:30 | Outpatient (BNV) | payer MEDICARE, SELFPAY | PROVIDERS: PCP Physician Assistant; Visit Provider Radiology Diagnostic Radiology | DX: R92.1 Mammographic calcification found on diagnostic imaging of breast (principal) | CPT/HCPCS: 77065 ==

== ENCOUNTER 2023-12-31 08:55 | Outpatient (AMB) | payer MEDICARE, SELFPAY ==
[2023-12-31 09:03] VITALS: BP 132/78; PULSE 88; BMI 29.4
--- NOTE | 2023-12-31 09:03 | A.OFFVIS_ITS ---
Intake Vital Signs 12/31/23 09:03 Height 5 ft 3 in Weight 165 lb 12.602 oz BMI 29.4 BP 132/78 Blood Pressure Location Lt brachial Position Sitting Pulse 88 Intake Visit Reasons: 6 mth follow up breast exam Intake Note: Patient here for 6m f/u breast exam. Recent mammo 11-25-23. Patient c/o:denies rashes, dry skin on breast. 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 She has no breast issues or complaints. She does occasional breast exams. Follow-up mammogram was within normal limits. [facility] Medical History Post-menopausal Breast calcification, left Surgical History History of colonoscopy History of biopsy History of back surgery History of tonsillectomy and adenoidectomy History of appendectomy Family History Maternal Uncle Colon cancer Social History Housing: House Alcohol intake: current Alcohol intake frequency: holidays/special occasions only Patient Tobacco Use Status: Never used Tobacco e-Cigarette/Vaping Use: Never Used Second Hand Smoke Exposure: No service: No Current occupational status: retired Cognitive needs: No Hearing needs: No Vision needs: Yes (glasses) Female Reproductive History Menstrual Age of Menarche: 14 Physical Exam Vital Signs: Last Vital Signs Pulse 88 12/31/23 09:03 BP 132/78 12/31/23 09:03 BMI result Body Mass Index 29.4 Chest Other: No periclavicular, axillary, or cervical adenopathy bilaterally. Breast exam bilaterally within normal limits. Assessment & Plan Assessment & Plan (1) Breast calcification, left: Code(s): R92.1 - Mammographic calcification found on diagnostic imaging of breast Plan Patient will be re-enrolled for annual mammography. 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 All questions answered. She will follow-up p.r.n.. Coding Level of Care Code Est Pt Level 4 (57848) Diagnoses Breast calcification, left R92.1
== END 2023-12-31 09:19 | disposition home or self-care (01) ==
PROVIDERS: PCP Physician Assistant; Visit Provider Surgery
DX: R92.1 Mammographic calcification found on diagnostic imaging of breast (principal)
CPT/HCPCS: 99214

== ENCOUNTER → 2023-12-31 08:55 | Outpatient (BNVA) | payer MEDICARE, SELFPAY | PROVIDERS: PCP Physician Assistant; Visit Provider Surgery | DX: R92.1 Mammographic calcification found on diagnostic imaging of breast (principal) | CPT/HCPCS: 99212 ==

== ENCOUNTER 2024-04-04 08:20 | Outpatient (AMB) | payer MEDICARE, SELFPAY ==
--- NOTE | 2024-04-04 08:38 | MHC.PC.OV ---
Vital Signs 04/04/24 08:40 Height 5 ft 3 in Weight 167 lb BMI 29.6 BP 132/66 Blood Pressure Location Lt brachial Position Sitting Pulse 70 Pulse Source Pulse Oximeter Pulse Oximetry (%) 96 Oxygen Delivery Method Room Air Intake Visit Reasons: 6mth f/u Intake Note: Patient is here to follow up on HTN, HLD, Hypothyroidism. 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 Accompanied by: Self / Same As Patient Allergies Lisinopril Allergy (Unknown, Uncoded 04/04/24 08:46) cough Medication List - Last Reconciled 04/04/24 by Cb Nelson PA-C aspirin 81 mg PO DAILY atorvastatin 20 mg PO DAILY 90 days cholecalciferol (vitamin D3) 50 mcg PO DAILY ibuprofen 800 mg PO TID 15 days levothyroxine 50 mcg PO DAILY losartan 25 mg PO DAILY 90 days oxybutynin chloride ER 10 mg PO DAILY Tobacco use date assessed: 04/04/24 Fall risk assessment: No Falls in past year Last assessed Fall Risk: 04/04/24 Dental Screening Dental Screen Date: 04/04/24 Did you have a dental visit in the last 12 months?: Yes Did you have a dental problem in the last 6 months where you did not have access to dental care?: No Was dental information given to patient?: Patient has dentist HPI 6mth f/u HPI Details Patient is a 73-year-old female here today for follow-up visit.? Patient has a past medical history significant for hypothyroidism, hyperlipidemia, HTN. Spastic bladder: Has found oxybutynin to be helpful though at 5 mg started to become ineffective. Increased dose to 10 mg though reports fatigue as a side effect. She has been taking the 10 mg oxybutynin at night which has been more effective. Advised to consider pelvic floor therapy for her spastic bladder and urinary frequency. Of note does have chronic red blood cell per urine. Urine cytology negative. .. Hypothyroidism:? Has been clinically and chemically euthyroid quite a while now.? Continues on levothyroxine 50 mcg with good maintenance of her TSH. .. Hypertension: Blood pressure acceptable today in office. Blood pressures been well controlled with current dose of losartan. Advised to monitor blood pressure at home with goal blood pressure be below 140/90 .. Hyperlipidemia:? Patient continues on statin therapy without any side effect.? Most recent fasting lipid panel showing acceptable LDL. PFSH Medical History Post-menopausal Breast calcification, left Surgical History Breast calcification, left History of colonoscopy History of biopsy History of back surgery History of tonsillectomy and adenoidectomy History of appendectomy Family History Maternal Uncle Colon cancer Social History Housing: House Alcohol intake: current Alcohol intake frequency: holidays/special occasions only Patient Tobacco Use Status: Never used Tobacco e-Cigarette/Vaping Use: Never Used Second Hand Smoke Exposure: No service: No Current occupational status: retired Cognitive needs: No Hearing needs: No Vision needs: Yes (glasses) Female Reproductive History Menstrual Age of Menarche: 14 Questionnaire PHQ-9 Over the last 2 weeks, how often have you been bothered by any of the following problems? 1. Little interest or pleasure in doing things: not at all 2. Feeling down, depressed, or hopeless: not at all 3. Trouble falling or staying asleep, or sleeping too much: not at all 4. Feeling tired or having little energy: not at all 5. Poor appetite or overeating: not at all 6. Feeling bad about yourself - or that you are a failure or have let yourself or your family down: not at all 7. Trouble concentrating on things, such as reading the newspaper or watching television: not at all 8. Moving or speaking so slowly that other people could have noticed. Or the opposite - being so fidgety or restless that you have been moving around a lot more than usual: not at all 9. Thoughts that you would be better off or of hurting yourself in some way: not at all Total score: 0 Depression Screening Interpretation: Negative Depression Screening Done: Yes Source: Developed by Drs. Dominic Sheppard, Nova Schulz, August Suarez and colleagues, with an educational stephenie from [employer]. Thrive Questionnaire Date Thrive assessed: 04/04/24 I am a: Patient What is your living situation today?: I have a steady place to live Within the past 12 months, did the food you bought not last and you didn't have the money to get more?: Never true Within the past 12 months, did you worry whether your food would run out before you got money to buy more?: Never true Do you have trouble paying for medicines?: No Do you have trouble getting transportation to medical appointments?: No Do you have trouble paying your heating and electricity bill?: No Do you have trouble taking care of your child, family member or friend?: No Do you have trouble with day-to-day activities such as bathing, preparing meals, shopping, managing finances, etc.?: No Are you currently unemployed and looking for a job?: No Are you interested in more education?: No Currently or been in a relationship where the following occur: no concerns reported THRIVE Score: 0 AUDIT C Alcohol Use Questionnaire (AUDIT-C) 1. How often do you have a drink containing alcohol?: Never Total Score: 0 ASHELY-7 AMB Questionnaire ASHELY-7 Date ASHELY - 7 assessed: 04/04/24 Feeling nervous, anxious, or on edge: 0 = Not at all Not being able to stop or control worryin = Not at all Worrying too much about different things: 0 = Not at all Trouble relaxin = Not at all Being so restless that it is hard to sit still: 0 = Not at all Becoming easily annoyed or irritable: 0 = Not at all Feeling afraid as if something awful might happen: 0 = Not at all Total ASHELY-7 score (0-4 normal; 5-9 mild; 10-14 moderate; 15-21 severe): 0 Source: Developed by Drs. Dominic Sheppard, Nova Schulz, August Suarez and colleagues, with an educational stephenie from [employer]. ASHELY-7 Assessment Billing ASHELY-7 Assessment Tool: ASHELY-7 Assessment 00237 Review of Systems Const Denies headache(s) Eyes Denies loss of vision ENT Denies vertigo, Denies dizziness, Denies headache(s) and Denies sore throat Card Denies chest pain, Denies leg edema and Denies lightheadedness Resp Denies cough, Denies hemoptysis and Denies wheezing GI Denies abdominal pain, Denies melena, Denies constipation, Denies diarrhea and Denies vomiting Denies urinary frequency, Denies dysuria and Denies urinary urgency Musc Denies arthralgias, Denies joint swelling, Denies numbness and Denies tingling Neuro Denies Abnormal speech present, Denies behavioral changes, Denies vertigo, Denies dizziness, Denies headache(s), Denies loss of vision, Denies memory loss, Denies numbness and Denies tingling Psych Denies anxiety, Denies behavioral changes, Denies depression, Denies memory loss and Denies panic attacks Luis/Lymph Denies easy bleeding and Denies easy bruising Aller/Immun Denies wheezing Physical exam (Primary Care) Vital Signs: Last Vital Signs Pulse 70 04/04/24 08:40 BP 132/66 04/04/24 08:40 Pulse Ox 96 04/04/24 08:40 Oxygen Delivery Method Room Air 04/04/24 08:40 BMI result Body Mass Index 29.6 Tobacco/Smoking Status: Tobacco use Status Tobacco use date assessed 04/04/24 04/04/24 08:45 Patient Tobacco Use Status Never used Tobacco 04/04/24 08:45 e-Cigarette/Vaping Use Never Used 04/04/24 08:45 PHQ-9: PHQ-9 Score PHQ-9: Total score 0 04/04/24 08:47 Depression Screening Interpretation: Negative Thrive Assessment: Date of Thrive Assessment Date Thrive assessed 04/04/24 04/04/24 08:45 Currently or been in a relationship where the following occur: no concerns reported Const General: healthy appearing, no acute distress, alert and awake Nutritional Appearance: well nourished Orientation/consciousness: oriented to person, oriented to place and oriented to time [facility] Ears: TM's normal bilaterally General nose exam: Normal nasal mucous membranes and turbinates present Eyes Conjunctivae: conjunctivae normal Sclerae: sclerae normal Pupils: Equal, round and reactive pupils present Neck Neck: Yes no lymphadenopathy and Yes no JVD Thyroid: Thyroid normal Carotids: no bruits Resp Effort & Inspection: normal respiratory effort and not tachypneic Auscultation: no crackles, no rales, no rhonchi and no wheezes Cardio Rate: regular rate Rhythm: regular rhythm Heart sounds: no murmurs and normal S1 and S2 GI Palpation (GI): Soft to palpation, nontender, no hepatomegaly and no splenomegaly Auscultation: normal bowel sounds Skin General skin exam: no rashes or lesions noted and dry skin Neuro General: oriented to person, oriented to place and oriented to time Cranial nerves: Yes Equal, round and reactive pupils present Speech: No Abnormal speech present Gait exam (Neuro): Normal gait present Motor exam (neuro): no tremor noted Extrem Right upper extremity: full ROM Left upper extremity: full ROM Right lower extremity: full ROM; no edema Left lower extremity: full ROM; no edema Psych Mental Status: mental status grossly normal Speech and movement: Normal speech and movement present Affect: normal affect Attitude: cooperative Thought process: Normal thought process present Assessment and Plan Assessment & Plan (1) Hypothyroidism: Code(s): E03.9 - Hypothyroidism, unspecified Qualifiers: Hypothyroidism type: unspecified Qualified Code(s): E03.9 - Hypothyroidism, unspecified Plan: Patient continues on levothyroxine 50 mcg on a daily basis. TSH has been stable (2) HLD (hyperlipidemia): Code(s): E78.5 - Hyperlipidemia, unspecified Qualifiers: Hyperlipidemia type: unspecified Qualified Code(s): E78.5 - Hyperlipidemia, unspecified Plan: Patient's most recent lipid panel showing appropriate total cholesterol and LDL. Will continue current dose of statin therapy with goal LDL to be below 130 (3) HTN (hypertension): Code(s): I10 - Essential (primary) hypertension Qualifiers: Hypertension type: primary hypertension Qualified Code(s): I10 - Essential (primary) hypertension Plan: Blood pressure acceptable today in office, Blood pressure has been well controlled with losartan. Advised to monitor blood pressure at home with goal blood pressure to be below 140/90 (4) Spastic bladder: Code(s): N32.89 - Other specified disorders of bladder Plan: Reports oxybutynin is helpful now at dose 10 mg. Would like to continue current dose. We did discuss perhaps pelvic floor therapy, Urology consult and/or increasing oxybutynin dose to 15 mg though like to hold off for this for now. (5) Post-menopausal: Code(s): Z78.0 - Asymptomatic menopausal state Plan: Did get bone density in 2020, normal bone density. Will repeat DEXA screening to evaluate bone density Orders: Orders XR DEXA axial skeleton Today Z78.0 - Asymptomatic menopausal state Patient Instructions: Goal: Blood pressure to remain below 140/90 Barrier: Adherence to physical activity and healthy eating habits. Coding Level of Care Code Est Pt Level 4 (87480) Diagnoses Hypothyroidism, unspecified type E03.9 Hypothyroidism type: unspecified Hyperlipidemia, unspecified hyperlipidemia type E78.5 Hyperlipidemia type: unspecified Primary hypertension I10 Hypertension type: primary hypertension Spastic bladder N32.89 Post-menopausal Z78.0 Additional Codes ASHELY-7 Assessment Billing - ASHELY-7 Assessment Tool: ASHELY-7 Assessment [id number] ([id number])
[2024-04-04 08:40] VITALS: BP 132/66; PULSE 70; O2SAT 96; BMI 29.6
== END 2024-04-04 09:02 | disposition home or self-care (01) ==
PROVIDERS: PCP Physician Assistant; Visit Provider Physician Assistant
DX: E03.9 Hypothyroidism, unspecified (principal); E78.5 Hyperlipidemia, unspecified; I10 Essential (primary) hypertension; N32.89 Other specified disorders of bladder; Z78.0 Asymptomatic menopausal state
CPT/HCPCS: 99214

== ENCOUNTER 2024-04-07 07:27 | Outpatient (REF) | payer MEDICARE, SELFPAY ==
[2024-04-07 08:03] LABS: Hematocrit 45.2 % (37.0-47.0); Hemoglobin 15.3 g/dl (12.0-16.0); Mean Corpuscular HGB Conc 33.8 g/dl (31.0-35.0); Mean Corpuscular Hemoglobin 30.1 pg (27.0-33.0); Mean Corpuscular Volume 88.8 fL (80.0-98.0); Mean Platelet Volume 8.6 fL (9.4-12.3); Platelet Count 295 X10*3/uL (160-400); Red Blood Count 5.09 X10*6/uL (4.20-5.50); Red Cell Distribution Width 12.8 % (11.0-16.0); White Blood Count 7.6 X10*3/uL (4.8-10.8)
[2024-04-07 08:41] LABS: Appearance Urine Turbid; Color Urine Yellow; Glucose Urine UA Negative (Negative); Leukocyte Esterase Urine Moderate (2+) (Negative); Nitrite Urine Negative (Negative); UMIC TRIGGER UACC YES; Urine Blood Moderate (2+) (Negative); Urine Ketones Trace mg/dL (Negative); Urine Protein Trace mg/dL (Neg-Trace)
[2024-04-07 08:47] LABS: Bacteria Urine 2+ (None Seen); Squamous Epithelial Cell Urine >20 /HPF (0-2); UACC Culture Trigger YES; WBC Urine >50 /HPF (0-5)
[2024-04-07 08:48] LABS: Alanine Aminotransferase 24 U/L (0-31); Albumin Level 4.1 g/dL (3.5-5.0); Alkaline Phosphatase 94 U/L (39-117); Anion Gap 12 (12-20); Aspartate Amino Transferase 21 U/L (5-31); Bilirubin Total 0.9 mg/dL (0.0-1.0); Blood Urea Nitrogen 13 mg/dL (9-16); Calcium 9.3 mg/dL (8.4-10.2); Carbon Dioxide 26 mmol/L (22-29); Chloride 107 mmol/L (96-108); Cholesterol 211 mg/dL (<200); Estimated Glomerular Filt Rate > 60; Glucose Fasting 97 mg/dL (60-99); HDL Cholesterol 59 mg/dL (>40); LDL Cholesterol Calculated 117 mg/dL (<100); Potassium 4.2 mmol/L (3.3-5.1); Sodium 141 mmol/L (135-145); Total Protein 7.4 g/dL (6.5-8.0); Triglycerides 175 mg/dL (<150)
[2024-04-07 09:08] LABS: TSH reflex Free T4 3.03 uIU/mL (0.32-4.0)
== END 2024-04-07 07:28 | disposition home or self-care (01) ==
LOC: HO.LAB 07:27
PROVIDERS: PCP Physician Assistant; Visit Provider Physician Assistant
DX: E78.5 Hyperlipidemia, unspecified (principal); E03.9 Hypothyroidism, unspecified; R82.90 Unspecified abnormal findings in urine
CPT/HCPCS: 36415; 80053; 80061; 81001; 81003; 84443; 85027; 87086

== ENCOUNTER 2024-05-05 08:01 | Outpatient (REF) | payer MEDICARE, SELFPAY ==
--- NOTE | ~2024-05-05 | MM_ITS ---
EXAMINATION: MM SCREENING DIGITAL BREAST TOMOSYNTHESIS, BILATERAL CLINICAL INFORMATION: Screening. Asymptomatic. COMPARISON: Mammography: This study is compared with prior exams dating back to 2020. TECHNIQUE: Digital breast tomosynthesis is performed in both the craniocaudal and mediolateral oblique views along with computer-aided detection (CAD). Synthesized 2D images are generated from the tomosynthesis. FINDINGS: There are scattered areas of fibroglandular density (ACR BI-RADS breast composition Category b). There are no significant masses, abnormal calcifications, or other abnormalities. Few, bilateral benign calcifications are present in each breast. There are 2 biopsy tissue markers in the left breast. MM/MM tomosynthesis screening BI IMPRESSION: No mammographic evidence of malignancy. ASSESSMENT: BI-RADS BI-RADS 2 - Benign Findings RECOMMENDATION: Routine annual mammography screening. 1 year F/U This examination should not preclude the clinical evaluation of a suspicious palpable abnormality. This patient's information was entered into a reminder system with a target due date for their next mammogram.
--- NOTE | ~2024-05-05 | MM_ITS ---
EXAMINATION: BONE DENSITOMETRY CLINICAL INDICATION: Menopause. COMPARISON: Previous BD dated 06/11/2021 and baseline BD dated 03/11/2018. TECHNIQUE: Using a [employer] DXA System (software version: 13.1) manufactured by [employer], dual-energy x-ray absorptiometry was performed of the lumbar spine and left hip. The images are of good technical quality. Summary results are attached. FINDINGS: LEFT FEMUR, NECK: Current: BMD 0.910 g/cm2, Z-score 0.6, T-score -0.9, normal. Prior: BMD 0.944 g/cm2. Baseline: BMD 1.014 g/cm2. LEFT FEMUR, TOTAL: Current: BMD 0.941 g/cm2, Z-score 0.8, T-score -0.5, normal, 4.8% decrease from previous, 10.1% decrease from baseline (<5% change is not significant). Prior: BMD 0.988 g/cm2. Baseline: BMD 1.047 g/cm2. AP SPINE L1-L2 (excluding L3 and L4): The data of L1-L4 has been changed to exclude the L3 and L4 vertebral bodies, because degenerative sclerosis at these levels may cause overestimation of lumbar spine density. Current: BMD 1.212 g/cm2, Z-score 1.8, T-score 0.4, normal, 2.9% decrease from previous, 2.3% increase from baseline (<5% change is not significant). Prior: BMD 1.248 g/cm2. Baseline: BMD 1.185 g/cm2. IDENTIFIED RISK FACTORS: Menopause, low calcium intake. HISTORY OF FRACTURE: None listed. MEDICATIONS: Vitamin D. MM/XR DEXA axial skeleton IMPRESSION: 1. DIAGNOSIS: Normal bone density based on the lowest T-score value of -0.9 in the femoral neck applying World Health Organization criteria. 2. 10-YEAR FRACTURE RISK PREDICTION, FRAX: According to the guidelines, FRAX calculation should only be performed on patients in the osteopenia bone density category. Therefore, FRAX was not performed on this patient. 3. Treatment Recommendations: NOF guidelines recommend consideration for treatment in postmenopausal women and men age 50 and older presenting with the following: -A hip or vertebral (clinical or morphometric) fracture. -T-score less than or equal to -2.5 at the femoral neck or spine after appropriate evaluation to exclude secondary causes. -Low bone mass at the hip or spine and a 10-year fracture probability by FRAX of greater than or equal to 3% for hip fracture or greater than or equal to 20% for major osteoporotic fracture based on the [place] adapted WHO algorithm. 4. Other Recommendations: All treatment decisions require clinical judgment and consideration of individual patient factors, including patient preferences, comorbidities, previous drug use, risk factors not captured in the FRAX model (e.g. frailty, falls, vitamin D deficiency, increased bone turnover, interval significant decline in bone density) and possible under or overestimation of fracture risk by FRAX. FUTURE SCAN RECOMMENDATION: People with diagnosed cases of osteoporosis or at high risk for fracture should have regular bone mineral density tests. For patients eligible for Medicare, routine testing is allowed once every 2 years. The testing frequency can be increased to one year for patients who have rapidly progressing disease, those who are receiving or discontinuing medical therapy to restore bone mass, or have additional risk factors.
== END 2024-05-05 08:02 | disposition home or self-care (01) ==
LOC: HO.MAMMO 08:01
PROVIDERS: PCP Physician Assistant; Visit Provider Physician Assistant
DX: Z12.31 Encounter for screening mammogram for malignant neoplasm of breast (principal); Z13.820 Encounter for screening for osteoporosis; Z78.0 Asymptomatic menopausal state
CPT/HCPCS: 77063; 77067; 77080

== ENCOUNTER → 2024-05-05 09:15 | Outpatient (BNV) | payer MEDICARE, SELFPAY | PROVIDERS: PCP Physician Assistant; Visit Provider Radiology Diagnostic Radiology | DX: Z12.31 Encounter for screening mammogram for malignant neoplasm of breast (principal) | CPT/HCPCS: 77063; 77067 ==

== ENCOUNTER 2024-07-28 06:27 | Day surgery (SDC) | payer MEDICARE, SELFPAY ==
[2024-07-27 06:57] VITALS: BMI 29.6
--- NOTE | 2024-07-27 09:43 | HO.ANESPROP2 ---
Documented by User: Britney Snow NP 07/27/24 09:44 HPI - Anesthesia Eval Consult details Narrative: 73yo F for Colonoscopy PMFSH Active Problems Active Problems: All Active Problems Bronchitis (Acute) Right foot pain (Acute) Right flank pain (Acute) HTN (hypertension) (Acute) Urinary urgency (Acute) Spastic bladder (Acute) Adult general medical exam (Acute) Left breast mass (Acute) Lumbar spine pain (Acute) HLD (hyperlipidemia) (Acute) Hypothyroidism (Acute) Post-menopausal (Acute) Breast calcification, left (Acute) Past Medical History Medical History Hx of bundle branch block HTN (hypertension) Thyroid disease Hiatal hernia Post-menopausal Family History Family History Maternal Uncle Colon cancer Surgical History Surgical History History of esophagogastroduodenoscopy (EGD) History of colonoscopy History of biopsy Breast calcification, left History of back surgery History of tonsillectomy and adenoidectomy History of appendectomy Social History Social History Housing: House Alcohol intake: current Alcohol intake frequency: does not drink Patient Tobacco Use Status: Former Tobacco user e-Cigarette/Vaping Use: Never Used Second Hand Smoke Exposure: No Have you been hit, kicked, punched, or otherwise hurt by someone within the past year? If so, by whom?: No Are you DNR?: No Advance Directives: No Advance Directives Information Provided: Yes Nutrition Risks: No Nutritional Risk service: No Current occupational status: retired Cognitive needs: No Hearing needs: No Vision needs: Yes (glasses) Meds Allergies Allergy/AdvReac Type Severity Reaction Status Date / Time Lisinopril Allergy Intermediate cough Uncoded 07/28/24 06:58 Home Medications ?Medication ?Instructions ?Recorded ?Confirmed ?Last Taken ?Type aspirin 81 mg chewable tablet 81 mg PO DAILY 10/22/20 07/27/24 07/04/24 History cholecalciferol (vitamin D3) 50 50 mcg PO DAILY 05/19/21 07/27/24 07/27/24 History mcg (2,000 unit) capsule ibuprofen 800 mg tablet 800 mg PO TID PRN Pain 07/27/24 07/27/24 07/04/24 History Exam Height,Weight and Vital Signs: Height 5 ft 3 in Weight 75.75 kg Assessment and Plan Assessment Anesthesia Assessment: Chart Reviewed Documented by User: Brenna Kimble MD 07/28/24 07:28 PMFSH Past Medical History Medical History Hx of bundle branch block HTN (hypertension) Thyroid disease Hiatal hernia Post-menopausal Family History Family History Maternal Uncle Colon cancer Surgical History Surgical History History of esophagogastroduodenoscopy (EGD) History of colonoscopy History of biopsy Breast calcification, left History of back surgery History of tonsillectomy and adenoidectomy History of appendectomy History of Problems with Anesthesia: No Social History Social History Housing: House Alcohol intake: current Alcohol intake frequency: does not drink Patient Tobacco Use Status: Former Tobacco user e-Cigarette/Vaping Use: Never Used Second Hand Smoke Exposure: No Have you been hit, kicked, punched, or otherwise hurt by someone within the past year? If so, by whom?: No Are you DNR?: No Advance Directives: No Advance Directives Information Provided: Yes Nutrition Risks: No Nutritional Risk service: No Current occupational status: retired Cognitive needs: No Hearing needs: No Vision needs: Yes (glasses) Meds Allergies Allergy/AdvReac Type Severity Reaction Status Date / Time Lisinopril Allergy Intermediate cough Uncoded 07/28/24 06:58 Home Medications ?Medication ?Instructions ?Recorded ?Confirmed ?Last Taken ?Type aspirin 81 mg chewable tablet 81 mg PO DAILY 10/22/20 07/27/24 07/04/24 History cholecalciferol (vitamin D3) 50 50 mcg PO DAILY 05/19/21 07/27/24 07/27/24 History mcg (2,000 unit) capsule ibuprofen 800 mg tablet 800 mg PO TID PRN Pain 07/27/24 07/27/24 07/04/24 History Exam Airway Mallampati Class: II TM Dist: >3cm Neck ROM: Full Loose/Missing/Broken Teeth: No Heart: RRR Lungs: CTA Assessment and Plan Assessment Anesthesia Assessment: Anesthesia Plan Discussed Final Anesthetic Review History of Problems with Anesthesia: No NPO: Yes ASA Class: II Final Preanesthetic Review: Meds/Allgs Chart Reviewed, Consent Obtained/Reviewed and Anes Risks/Benef Reviewed Patient Risk: Low Procedure Risk: Low Anesthetic Plan Anesthetic Plan: MAC: Disposition: Standard PACU
[2024-07-28 06:29] VITALS: BP 140/74; PULSE 76; RESP 18; TEMP 36.9; O2SAT 98
[2024-07-28] MEDS: Lactated Ringers 1,000 ML 100 ML IVCONT (06:56)
--- NOTE | 2024-07-28 07:04 | ECG_ITS ---
Test Reason : pre op Blood Pressure : / mmHG Vent. Rate : 071 BPM Atrial Rate : 071 BPM P-R Int : 166 ms QRS Dur : 126 ms QT Int : 426 ms P-R-T Axes : 036 015 001 degrees QTc Int : 462 ms Normal sinus rhythm Right bundle branch block Abnormal ECG No previous ECGs available Referred By: Sarah Gonzalez Electronically Signed By:TALIA RM
--- NOTE | 2024-07-28 07:07 | PC.NURSE ---
?new onset bbb dr ivan aware ekg orderedpt denies any cardiac symptoms
[2024-07-28 08:24] VITALS: BP 96/56; PULSE 67; RESP 18; TEMP 36.1; O2SAT 97
--- NOTE | 2024-07-28 08:27 | PM.OP ---
Brief Operative Note Date of Service: 07/28/24 Pre-op diagnosis: Screening Post-op diagnosis: other (Diverticulosis) Procedure: Colonoscopy to the cecum and TI Surgeon: Dominic Wilcox MD Anesthesia: MAC Was an Production Hardener used for this Procedure?: No Estimated blood loss (mL): 0 Pathology: none sent Condition: stable Disposition: PACU
[2024-07-28 08:39] VITALS: BP 111/70; PULSE 67; RESP 18; TEMP 36.3; O2SAT 92
--- NOTE | 2024-07-28 08:44 | OP_ITS ---
DATE OF SERVICE: 07/28/2024 SURGEON: Dominic Wilcox MD INDICATIONS: The patient presents for evaluation of colorectal cancer screening. Full consent has been obtained from her for this, including risks of bleeding and perforation. PREOPERATIVE DIAGNOSIS: Colorectal cancer screening. POSTOPERATIVE DIAGNOSIS: PROCEDURE PERFORMED: Colonoscopy to the cecum and terminal ileum. ESTIMATED BLOOD LOSS: COMPLICATIONS: ANESTHESIA: Monitored anesthesia care. ASSISTANTS: SPECIMENS: POSTOPERATIVE DIAGNOSES: Colorectal cancer screening, sigmoid diverticulosis, internal hemorrhoids. DESCRIPTION OF PROCEDURE: The patient was placed in the left lateral decubitus position. The digital rectal exam revealed no abnormalities. The Olympus video pediatric colonoscope was then entered into the rectum and advanced easily to the cecum. Once in the cecum, I did identify normal-appearing cecal pouch with appendiceal orifice and a normal-appearing ileocecal valve. The terminal ileum was cannulated and appeared normal. The scope was withdrawn back in the colon. The entire cecum and ileocecal valve appeared normal. The scope was slowly withdrawn assessing all mucosal surfaces carefully. Preparation was excellent. I did not visualize any sign of polyps, colitis, nor angiodysplasias. There was a [id number] amount of sigmoid diverticulosis. In the rectum, scope was retroflexed, visualizing internal hemorrhoids, but no other pathology. The rectal mucosa appeared normal. The scope was straightened and withdrawn from the patient. She tolerated the procedure well and was returned to the recovery area in stable condition. IMPRESSION: 1. Sigmoid diverticulosis. 2. Internal hemorrhoids. PLAN: Given today's negative exam, 2 previous negative colonoscopies, no first-degree relatives with colorectal cancer, and her age, I do not think she will need any further screening colonoscopies going forward. She will, otherwise, see me on a p.r.n. basis. She was advised that she could resume her aspirin today. MD BELLA Knight/ANTOINETTEL / [phone]
== END 2024-07-28 09:02 | disposition home or self-care (01) ==
PROVIDERS: PCP Physician Assistant; Visit Provider Internal Medicine
PROC: 0DJD8ZZ Inspection of Lower Intestinal Tract, Via Natural or Artificial Opening Endoscopic (ICD-10-PCS; CPT 45378; principal; 2024-07-28 07:30)
DX: Z12.11 Encounter for screening for malignant neoplasm of colon (principal); I10 Essential (primary) hypertension; E03.9 Hypothyroidism, unspecified; Z79.82 Long term (current) use of aspirin; Z79.1 Long term (current) use of non-steroidal anti-inflammatories (NSAID); Z79.899 Other long term (current) drug therapy; Z88.1 Allergy status to other antibiotic agents; Z98.890 Other specified postprocedural states; Z87.891 Personal history of nicotine dependence
CPT/HCPCS: G0121; 93005; J2704

== ENCOUNTER 2024-08-12 09:02 | Outpatient (AMB) | payer MEDICARE, SELFPAY ==
[2024-08-12 09:04] VITALS: BP 132/70; PULSE 80; TEMP 37.7; O2SAT 97; BMI 29.9
--- NOTE | 2024-08-12 09:04 | MHC.OFFWIV ---
Intake Vital Signs 08/12/24 09:04 Height 5 ft 3 in Weight 169 lb BMI 29.9 BP 132/70 Blood Pressure Location Rt brachial Position Sitting Pulse 80 Pulse Source Pulse Oximeter Temp 99.9 F Temp Source Oral Pulse Oximetry (%) 97 Intake Visit Reasons: EP Cold, chills, fevr, Home COVID + test Intake Note: pt is here covid pos, c/o fever, chills Patient Tobacco Use Status: Former Tobacco user Allergies Lisinopril Allergy (Intermediate, Uncoded 08/12/24 09:06) cough Do you need a note to return to daycare/school/sports/work: No HPI HPI Comments History of Present Illness Details she presents to office with sheritaid She got covid booster wednesday and he started Wednesday night Onset lastnight Tested + this am She admits to congestion, cough, chills, body aches She has not taken medicine yet for it + at home and is on Paxlovid [facility] Medical History Hx of bundle branch block HTN (hypertension) Thyroid disease Hiatal hernia Post-menopausal Surgical History History of esophagogastroduodenoscopy (EGD) History of colonoscopy History of biopsy Breast calcification, left History of back surgery History of tonsillectomy and adenoidectomy History of appendectomy Family History Maternal Uncle Colon cancer Social History Housing: House Alcohol intake: current Alcohol intake frequency: does not drink Patient Tobacco Use Status: Former Tobacco user e-Cigarette/Vaping Use: Never Used Second Hand Smoke Exposure: No service: No Current occupational status: retired Cognitive needs: No Hearing needs: No Vision needs: Yes (glasses) Female Reproductive History Menstrual Age of Menarche: 14 Review of Systems Const Reports chills, Reports fatigue and Reports fever(s) ENT Denies dizziness, Denies otalgia, Reports nasal congestion, Denies sore throat and Denies throat swelling Card Denies chest pain, Denies syncope and Denies dyspnea Resp Denies chest congestion, Reports cough and Denies dyspnea GI Denies abdominal pain Musc Reports myalgias Neuro Denies dizziness and Denies syncope Endo Reports fatigue Aller/Immun Denies throat swelling Physical Exam Vital Signs: Last Vital Signs Temp 99.9 F 08/12/24 09:04 Pulse 80 08/12/24 09:04 BP 132/70 08/12/24 09:04 Pulse Ox 97 08/12/24 09:04 BMI result Body Mass Index 29.9 General: Non-toxic, NAD. Speaking full sentences. Skin: Warm dry throughout Eye: EOMI HENT: Airway patent. Uvula midline. No pharyngeal erythema or edema. No MAINTENANCE AND ENGINEERING MANAGER. Bilateral canals clear. TM non-erythematous, non-bulging. No TM perforation or hemotympanum noted. Respiratory: CTA bilaterally. No wheezes, rales or rhonchi Cardiac: RRR. No murmur MSK: Full ROM extremities. Neurology: A/O. No aphasia or facial droop. 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 All questions answered We discussed 5 day quarantine plus making sure fever free Orders: Orders SARS-CoV2/FLU/RSV Today U07.1 - COVID-19 Coding Level of Care Code Est Pt Level 3 (29128) Diagnoses COVID U07.1
== END 2024-08-12 10:08 | disposition home or self-care (01) ==
PROVIDERS: PCP Physician Assistant; Visit Provider Physician Assistant
DX: U07.1 COVID-19 (principal)

== ENCOUNTER 2024-08-12 09:02 | Outpatient (REF) | payer MEDICARE, SELFPAY ==
[2024-08-12 12:32] LABS: Influenza A PCR NEGATIVE (Negative); Influenza B PCR NEGATIVE (Negative); Resp Syncy Virus RNA Qual PCR NEGATIVE (Negative); SARS COV2 PCR INHOUSE POSITIVE (Negative)
== END 2024-08-12 09:03 | disposition home or self-care (01) ==
LOC: HO.LNP 09:02
PROVIDERS: PCP Physician Assistant; Visit Provider Physician Assistant
DX: U07.1 COVID-19 (principal)
CPT/HCPCS: 0241U; 99212

== ENCOUNTER 2024-09-04 14:36 | Outpatient (REF) | payer MEDICARE, SELFPAY ==
--- NOTE | ~2024-09-04 | XR_ITS ---
EXAMINATION: XR CHEST CLINICAL INFORMATION: Bronchitis, not otherwise specified. COMPARISON: 08/26/2023. TECHNIQUE: PA and lateral views of the chest. FINDINGS: The cardiac mild, and mediastinal contours are normal. The lungs are clear bilaterally. No effusions or pneumothorax. No consolidations. Bronchovascular markings appear normal. There are mild to moderate degenerative changes in the spine. No soft tissue abnormalities. XR/XR chest 2V IMPRESSION: No active disease. No significant interval change. Electronically signed by: Jacob Cunningham MD 10/05/2024 10:54 AM [facility]
== END 2024-09-04 14:37 | disposition home or self-care (01) ==
LOC: HO.XRAY 14:36
PROVIDERS: PCP Physician Assistant; Visit Provider Physician Assistant
DX: J40 Bronchitis, not specified as acute or chronic (principal)
CPT/HCPCS: 71046

== ENCOUNTER → 2024-09-04 14:39 | Outpatient (BNV) | payer MEDICARE, SELFPAY | PROVIDERS: PCP Physician Assistant; Visit Provider Radiology Diagnostic Radiology | DX: J40 Bronchitis, not specified as acute or chronic (principal) | CPT/HCPCS: 71046 ==

== ENCOUNTER 2024-10-03 07:25 | Outpatient (REF) | payer MEDICARE, SELFPAY ==
[2024-10-03 08:23] LABS: Hematocrit 43.6 % (37.0-47.0); Hemoglobin 14.8 g/dl (12.0-16.0); Mean Corpuscular HGB Conc 33.9 g/dl (31.0-35.0); Mean Corpuscular Volume 88.3 fL (80.0-98.0); Mean Platelet Volume 8.3 fL (9.4-12.3); Platelet Count 304 X10*3/uL (160-400); Red Blood Count 4.94 X10*6/uL (4.20-5.50); Red Cell Distribution Width 12.7 % (11.0-16.0)
[2024-10-03 08:27] LABS: Appearance Urine Cloudy; Color Urine Yellow; Glucose Urine UA Negative (Negative); Leukocyte Esterase Urine Negative (Negative); Nitrite Urine Negative (Negative); UMIC TRIGGER UACC YES; Urine Blood Moderate (2+) (Negative); Urine Ketones Negative (Negative); Urine Protein Negative (Neg-Trace)
[2024-10-03 08:34] LABS: Bacteria Urine None Seen (None Seen); Hyaline Casts Urine 0-2 /LPF (0-2); WBC Urine 0-5 /HPF (0-5)
[2024-10-03 09:00] LABS: Creatinine Urine 254.17 mg/dL; Microalbum/Creatinine Ratio Ur 5.1 ug/mg cr (<30)
[2024-10-03 09:17] LABS: Alanine Aminotransferase 64 U/L (0-31); Alkaline Phosphatase 106 U/L (39-117); Anion Gap 14 (12-20); Aspartate Amino Transferase 46 U/L (5-31); Bilirubin Total 0.7 mg/dL (0.0-1.0); Blood Urea Nitrogen 11 mg/dL (9-16); Calcium 9.5 mg/dL (8.4-10.2); Carbon Dioxide 22 mmol/L (22-29); Chloride 107 mmol/L (96-108); Cholesterol 217 mg/dL (<200); Estimated Glomerular Filt Rate > 60; Glucose Fasting 100 mg/dL (60-99); HDL Cholesterol 55 mg/dL (>40); LDL Cholesterol Calculated 116 mg/dL (<100); Potassium 3.9 mmol/L (3.3-5.1); Sodium 139 mmol/L (135-145); Total Protein 7.2 g/dL (6.5-8.0); Triglycerides 231 mg/dL (<150)
[2024-10-03 09:33] LABS: TSH reflex Free T4 3.33 uIU/mL (0.32-4.0)
== END 2024-10-03 07:26 | disposition home or self-care (01) ==
LOC: HO.LAB 07:25
PROVIDERS: PCP Physician Assistant; Visit Provider Physician Assistant
DX: E78.5 Hyperlipidemia, unspecified (principal); I10 Essential (primary) hypertension; E03.9 Hypothyroidism, unspecified
CPT/HCPCS: 36415; 80053; 80061; 81001; 82043; 82570; 84443; 85027

== ENCOUNTER 2024-10-05 10:18 | Outpatient (AMB) | payer MEDICARE, SELFPAY ==
--- NOTE | 2024-10-05 10:19 | A.OFFVIS_ITS ---
Intake Vital Signs 10/05/24 10:19 Height 53 ft Blood Pressure Location Lt brachial Position Sitting Pulse Source Pulse Oximeter Oxygen Delivery Method Room Air Intake Visit Reasons: FREDOKim G0439 Body Specialist Required: No Accompanied by: Self / Same As Patient Allergies Lisinopril Allergy (Intermediate, Uncoded 10/05/24 10:36) cough HPI SWV G0439 HPI Details Patient is a 73-year-old female here today for an annual wellness visit.? Patient has a past medical history significant for hypothyroidism, hyperlipidemia, HTN. Concern--> patient reports over last 2 months having intermittent episodes of hot flashes to the point where she feels in Mongolian with sweat and needs to keep her conditioning on. She reports she has been gaining weight though is not eating large portions. We have checked her thyroid recently which was within normal range, she continues on levothyroxine 50 mcg. Today we discussed her brevig mission of care. We also discussed her comprehensive care plan which was scanned into patient's documents Colorectal cancer screening: Colonoscopy done this year, no further colonoscopies needed Mammogram: Up-to-date done in April of 2024 BI-RADS 2 Vaccines: Up-to-date with COVID vaccine, shingles vaccine, tetanus vaccine and pneumonia vaccine HPI Comments History of Present Illness Details reviewed past medical history- yes reviewed surgical / hospitalization history- yes reviewed current medications- yes reviewed family history- yes home safety throw rugs? grab bars? raised toilet seat? working smoke detectors? activities of daily living difficulty bathing or showering? difficulty dressing? difficulty using the toilet? difficulty getting in and out of bed? difficulty walking? receives help from other person's with any of the above tasks? instrumental activities of daily living uses telephone - gets to place out of walking distance- go shopping for groceries- repairs own meals- does own minor home maintenance- does own laundry- does own housework- manages own money- currently takes medication- end of life planning discussed advanced directives- yes advanced directives on file? discussed wishes expressed in advanced directives. fall risk have you had any falls with injuries in the past year? have you had 2 or more falls in the past year? fall risk assessment: [facility] Medical History Hx of bundle branch block HTN (hypertension) Thyroid disease Hiatal hernia Post-menopausal Surgical History History of esophagogastroduodenoscopy (EGD) History of colonoscopy History of biopsy Breast calcification, left History of back surgery History of tonsillectomy and adenoidectomy History of appendectomy Family History Maternal Uncle Colon cancer Social History Housing: House Alcohol intake: current Alcohol intake frequency: does not drink Patient Tobacco Use Status: Former Tobacco user e-Cigarette/Vaping Use: Never Used Second Hand Smoke Exposure: No service: No Current occupational status: retired Cognitive needs: No Hearing needs: No Vision needs: Yes (glasses) Female Reproductive History Menstrual Age of Menarche: 14 Questionnaire Medicare Wellness Checkup [age] What gender do you identify with?: female During the past 4 weeks, how much have you been bothered by emotional problems such as feeling anxious, depressed, irritable, sad or downhearted, and blue?: not at all During the past 4 weeks, has your physical & emotional health limited your social activities with family, friends, neighbors, or groups?: not at all During the past 4 weeks, how much bodily pain have you generally had?: very mild pain During the past 4 weeks, was someone available to help you if you needed & wanted help?: yes, as much as I wanted During the past 4 weeks, what was the hardest physical activity you could do for at least 2 minutes?: moderate Can you get to places out of walking distance without help? (For eg., can you travel alone on buses, taxis or drive your car?): Yes Can you go shopping for groceries or clothes without someone's help?: Yes Can you prepare your own meals?: Yes Can you do your housework without help?: Yes Because of any health problems, do you need the help of another person with your personal care needs such as eating, bathing, dressing or getting around the house?: No Can you handle your own money without help?: Yes During the past 4 weeks, how would you rate your health in general?: very good During the past 4 weeks how have things been going for you?: very well; could hardly better Are you having difficulties driving your car?: no Do you always fasten your seat belt when you are in a car?: yes, usually During past 4 weeks, have you been bothered by the following: never: Falling or dizzy when standing up, Sexual problems?, Trouble eating well?, Teeth or denture problems? and Problems using the telephone? and often: Tiredness or fatigue? Have you fallen 2 or more times in the past year?: No Are you afraid of falling?: No Are you a smoker?: no During the past 4 weeks, how many drinks of wine, beer, or other alcoholic beverages did you have?: no alcohol at all Do you exercise for about 20 minutes 3 or more times a week?: no, I usually do not exercise this much Have you been given information to help with the following?: no: Hazards in your house that might hurt you? and no: Keeping track of your medications? How often do you have trouble taking medicines the way you have been told to take them?: I always take medicine as prescribed How confident are you that you can control & manage most of your health problems?: very confident What is your race?: White Mini Mental State Exam (MMSE) Orientation What is the (year) (season) (date) (day) (month)?: year Where are we (state) (county) (town or city) (hospital) (floor)?: town or city Attention & Calculation (CHOOSE ONE) Spell WORLD backwards (DLROW): 5 letters Score Score: 7 Activity of Daily Living Bathing - sponge bath, tub bath or shower: receives no assistance (gets in/out by self, if usual bathing means Dressing - getting clothes from closets & drawers, including inner/outer garments & fasteners.: gets clothes & gets completely dressed without help Toileting - going to the 'toilet room' for urine/bowel elimination & cleaning self/arranging clothes: goes to toilet room, cleans self, arranges clothes without help Transfer: moves in & out of bed and chair without help (may use support object) Continence: controls urination/bowel movements completely by self Feeding: feeds self without help Total Score: 0 Information obtained from: patient Using telephone: independent Traveling: independent Shopping: independent Preparing meals: independent Housework: independent Taking medicine: independent Managing money: independent PHQ-9 Over the last 2 weeks, how often have you been bothered by any of the following problems? 1. Little interest or pleasure in doing things: not at all 2. Feeling down, depressed, or hopeless: not at all 3. Trouble falling or staying asleep, or sleeping too much: more than half the days 4. Feeling tired or having little energy: more than half the days 5. Poor appetite or overeating: not at all 6. Feeling bad about yourself - or that you are a failure or have let yourself or your family down: not at all 7. Trouble concentrating on things, such as reading the newspaper or watching television: not at all 8. Moving or speaking so slowly that other people could have noticed. Or the opposite - being so fidgety or restless that you have been moving around a lot more than usual: not at all 9. Thoughts that you would be better off or of hurting yourself in some way: not at all Total score: 4 46716 - PHQ-9 Billing: Yes Source: Developed by Drs. Dominic Sheppard, Nova Schulz, August Suarez and colleagues, with an educational stephenie from [employer]. Physical Exam Vital Signs: Oxygen Delivery Method Room Air 10/05/24 10:19 HEENT Other: hearing screening whisper test- failed on left side Eyes Other: vision screening- 20 20 os OD OU Other: urinary incontinence? Yes Neuro Other: balance Romberg- normal tandem walk test- able walk-in turned test- able rise from sit to stand- within 2 seconds Assessment & Plan Assessment & Plan (1) Annual wellness visit: Code(s): Z00.00 - Encounter for general adult medical examination without abnormal findings Plan: As per HPI (2) Hot flashes: Code(s): R23.2 - [place] Plan: Unclear etiology to patient's hot flash episodes. Will test her hormone levels to see if there is an explainable etiology Orders: Orders Estrogen Today R23.2 - [place] Follicle Stimulating Hormone Today R23.2 - [place] Estrone Today R23.2 - [place] Thyroid Peroxidase Antibodies Today R23.2 - [place] Medications: Discontinued oxybutynin chloride ER Discontinued Reason: Doctor's Order 10 mg PO DAILY 90 tabs 1RF N32.89 - Other specified disorders of bladder azithromycin Discontinued Reason: Doctor's Order For 250 mg dose pack: take 500 mg today (day 1), then 250 mg for 4 days (days 2-5) PO 6 tabs 0RF J40 - Bronchitis, not specified as acute or chronic prednisone Take 3 tablets in the morning x3 days, 2 tablets x3 days, 1 tablet x3 days Discontinued Reason: Doctor's Order 10 mg PO DIRECTED 9 days 18 tabs 0RF J40 - Bronchitis, not specified as acute or chronic Quality Reporting (2019) Depression/Bipolar (159/160/161/177) PHQ-9: Total score: 4 Coding Level of Care Code Medicare Subsequent (G0439) Est Pt Level 3 (41852) Diagnoses Annual wellness visit Z00.00 Hot flashes R23.2 CPT Codes Advance Care Planning - Advance Care Planning discussion: On file, no changes ([id number]) Advance Care Planning - Time spent: 1-15 minutes, on File ([id number]) Additional Codes PHQ-9 - 07488 - PHQ-9 Billing: Yes ([id number]) Advance Care Planning Advance Care Planning discussion: On file, no changes Date of discussion: 10/05/24 Forms completed: MOLST Time spent: 1-15 minutes, on File Actual minutes spent: 2
== END 2024-10-05 11:00 | disposition home or self-care (01) ==
PROVIDERS: PCP Physician Assistant; Visit Provider Physician Assistant
DX: Z00.00 Encounter for general adult medical examination without abnormal findings (principal); R23.2 Flushing

== ENCOUNTER → 2024-10-05 10:18 | Outpatient (BNVA) | payer MEDICARE, SELFPAY | PROVIDERS: PCP Physician Assistant; Visit Provider Physician Assistant | DX: Z00.00 Encounter for general adult medical examination without abnormal findings (principal); R23.2 Flushing | CPT/HCPCS: 96127; 99212 ==

== ENCOUNTER 2024-10-13 13:05 | Outpatient (REF) | payer MEDICARE, SELFPAY ==
[2024-10-13 14:14] LABS: Appearance Urine Cloudy; Color Urine Yellow; Glucose Urine UA Negative (Negative); Leukocyte Esterase Urine Negative (Negative); Nitrite Urine Negative (Negative); Specific Gravity - Urine >= 1.030 (1.005-1.025); UMIC TRIGGER UACC YES; Urine Blood Small (1+) (Negative); Urine Ketones Trace mg/dL (Negative); Urine Protein Negative (Neg-Trace)
[2024-10-13 14:28] LABS: Bacteria Urine None Seen (None Seen); Calcium Oxalate Crystals Urine Present; Hyaline Casts Urine 0-2 /LPF (0-2); RBC Urine 0-2 /HPF (0-2); WBC Urine 0-5 /HPF (0-5)
[2024-10-15 10:33] LABS: Follicle Stimulating Hormone 45.1 mIU/mL
[2024-10-16 12:57] LABS: Thyroid Peroxidase Antibodies 414 IU/mL (<9)
[2024-10-18 23:49] LABS: Estrogen 90 pg/mL
[2024-10-20 06:49] LABS: Estrone 30 pg/mL
== END 2024-10-13 13:06 | disposition home or self-care (01) ==
LOC: HO.LAB 13:05
PROVIDERS: PCP Physician Assistant; Visit Provider Physician Assistant
DX: R23.2 Flushing (principal); R30.0 Dysuria; R10.9 Unspecified abdominal pain
CPT/HCPCS: 36415; 81001; 82672; 82679; 83001; 86376

== ENCOUNTER 2024-10-25 10:51 | Outpatient (AMB) | payer MEDICARE, SELFPAY ==
--- NOTE | 2024-10-25 10:56 | A.OFFVIS_ITS ---
Vital Signs 10/25/24 10:58 Height 5 ft 3 in Weight 172 lb 9.951 oz BMI 30.6 BP 132/82 Blood Pressure Location Rt brachial Position Sitting Pulse 73 Pulse Source Pulse Oximeter Intake Visit Reasons: Other specified abnormal find in serum Intake Note: New patient internally referred by PCP for other specified abnormal find in serum. Glucose And Syrup Weigher Required: No Accompanied by: Self / Same As Patient Allergies Lisinopril Allergy (Intermediate, Uncoded 10/25/24 10:58) cough Medication List - Last Reconciled 10/25/24 by Dominic Woodard MD aspirin 81 mg PO DAILY atorvastatin 20 mg PO DAILY 90 days cholecalciferol (vitamin D3) 50 mcg PO DAILY ibuprofen 800 mg PO TID PRN levothyroxine 50 mcg PO DAILY losartan 25 mg PO DAILY 90 days oxybutynin chloride ER 10 mg PO DAILY HPI Comments Details: This is a 73-year-old female referred to endocrinology for for evaluation of feeling hot episodes. Episodes started 1 mo ago, Episodes described as hot and sweaty and glsses fog . Frequency of episodes are 4X/last mo . Episodes are not precipitated by . Last episode occurred 2 wks a go. There was no associated diarrhea or wheezing. There is no documented rise or fall in blood pressure during the episodes. Episodes are not associated with h eadaches and palpitations. Last yr gained 20 lbs . No hx of thyroid disease in family. No Sx of [place] . Has 1 child age 41. Menopause at age 55 - nl menses prior. [facility] Medical History (Updated 10/25/24 @ 11:22 by Dominic Woodard MD) Weight gain [place] Hx of bundle branch block HTN (hypertension) Thyroid disease Hiatal hernia Post-menopausal Surgical History History of esophagogastroduodenoscopy (EGD) History of colonoscopy History of biopsy Breast calcification, left History of back surgery History of tonsillectomy and adenoidectomy History of appendectomy Family History Maternal Uncle Colon cancer Social History Housing: House Alcohol intake: current Alcohol intake frequency: does not drink Patient Tobacco Use Status: Former Tobacco user e-Cigarette/Vaping Use: Never Used Second Hand Smoke Exposure: No service: No Current occupational status: retired Cognitive needs: No Hearing needs: No Vision needs: Yes (glasses) Female Reproductive History Menstrual Age of Menarche: 14 Physical Exam Vital Signs: BMI result Body Mass Index 30.6 Const Other: ?cushingoid features. Thyroid gland is normal size weighs about 15 g. There are no thyroid nodules palpated. There are no skin lesions Assessment & Plan Assessment & Plan (1) [place]: Code(s): R23.2 - [place] Category: Medical Plan: This 73-year-old female with episodes of sweating and overheating . There is no clear endocrine etiology behind the patient's symptoms. Her symptoms are not typical for pheochromocytoma or carcinoid tumor or neuroendocrine tumor. Further, she has not had any episodes over the last 2 weeks. She does have an inability to lose weight and snore at night and sleep apnea should be ruled out and her thyroid treatment optimize Plan is to check 24 hour urine for free cortisol and creatinine. At this point, I would not screen for pheochromocytoma or carcinoid tumor unless symptoms recur appear to be more typical for these syndromes. I do suggest that her primary care optimize her levothyroxine to keep TSH <2.5 by perhaps going up on levothyroxine 75 mcg. Also, a sleep study may be warranted to rule out sleep apnea. I do not feel at this point the endocrine follow-up as necessary unless symptoms recur and appear to be more typical for pheochromocytoma or carcinoid in which case primary care can screen for these disorders at that point and if positive could have patient returned to endocrinology Orders: Orders Creatinine, 24 Hr Group Today R23.2 - [place] Cortisol, Free 24Hr Urine Today R63.5 - Abnormal weight gain Coding Level of Care Code New Pt Level 4 (63102) Diagnoses [place]ushing R23.2
[2024-10-25 10:58] VITALS: BP 132/82; PULSE 73; BMI 30.6
== END 2024-10-25 11:28 | disposition home or self-care (01) ==
PROVIDERS: PCP Physician Assistant; Visit Provider Internal Medicine Endocrinology, Diabetes & Metabolism
DX: R23.2 Flushing (principal)
CPT/HCPCS: 99204

== ENCOUNTER → 2024-10-25 10:51 | Outpatient (BNVA) | payer MEDICARE, SELFPAY | PROVIDERS: PCP Physician Assistant; Visit Provider Internal Medicine Endocrinology, Diabetes & Metabolism | DX: R23.2 Flushing (principal) | CPT/HCPCS: 99202 ==

== ENCOUNTER 2024-10-27 09:25 | Outpatient (REF) | payer MEDICARE, SELFPAY ==
[2024-10-27 10:14] LABS: Creatinine, mg/dL 109.98
[2024-10-27 10:46] LABS: Total Volume 24 Hour Urine 1050 mL
[2024-10-27 10:47] LABS: Creatinine, 24Hr Urine 1.2 G/Day (1.0-2.0)
[2024-11-01 18:53] LABS: Cortisol Free, 24 Hr Urine 9.2 mcg/24 h (4.0-50.0); Creatinine, 24 Hr Urine 1.17 g/24 h (0.50-2.15); Total Volume, 24 Hr Urine 1050 mL
== END 2024-10-27 09:26 | disposition home or self-care (01) ==
LOC: HO.LNP 09:25
PROVIDERS: Visit Provider Internal Medicine Endocrinology, Diabetes & Metabolism
DX: R63.5 Abnormal weight gain (principal); R23.2 Flushing
CPT/HCPCS: 82530; 82570

== ENCOUNTER 2024-11-01 13:24 | Outpatient (REF) | payer MEDICARE, SELFPAY | END 2024-11-01 13:25 | disposition home or self-care (01) | LOC: HO.US 13:24 | PROVIDERS: PCP Physician Assistant; Visit Provider Physician Assistant | DX: R23.2 Flushing (principal) | CPT/HCPCS: 76775 ==

== ENCOUNTER → 2024-11-01 13:27 | Outpatient (BNV) | payer MEDICARE, SELFPAY | PROVIDERS: PCP Physician Assistant; Visit Provider Radiology Diagnostic Radiology | DX: R23.2 Flushing (principal) | CPT/HCPCS: 76775 ==

== ENCOUNTER 2025-01-03 12:53 | Outpatient (REF) | payer MEDICARE, SELFPAY ==
--- OUTSIDE RECORDS SUMMARY | 2025-01-03 14:15 | XMS_ITS | Data Portability ---
Author Organization [place] - [facility], Allergy Address [address] [address] Care Team Providers Care Roller Leveler Operator Name Role Phone [facility] Primary Care Provider Assessment Encounter Date Assessment Date Assessment LastModified by Organization Details LastModified Time 07/25/2024 07/25/2024 Ears were meticulously cleaned RIGHT SIDE today with fine pics, curettes and/or suction. Patient is encouraged to avoid Q-tips in their ears relative to packing the wax in tighter. They may use the corner of their bath towel to gently clean the nooks and crannies of the external ears as needed. 6 month visits or as needed are recommended with AIDAN [email or web address] Not available 07/25/2024 09:38:55 Plan of Treatment Reminders Order Date Submit Date Provider Last Modified By Organization Details Last Modified Time Details Appointments None record ed. Lab None record ed. Referral None record ed. Procedures None record ed. Surgeries None record ed. Imaging None record ed. Medication Orders None record ed. Patient TargetsNo targets recorded. Patient InstructionsNo instructions recorded. Reason for Referral None Reported. Results Created Date Observation Date Name Description Value Unit Range Abnormal Flag Note LastModifiedBy Organization Detail LastModifiedTime 07/12/20 24 02/28/2019 imagi ng/iggy kingos tic resul t No observ ation record ed. [email or web address] Not Available 21:29:56 07/12/20 24 02/28/2019 audio gram No observ ation record ed. [email or web address] Not Available 21:30:36 Result Notes None recorded. Problems Name Problem SNOMED Code Status Onset Date Resolution Date Notes Provider Name and Address Organization Details Recorded Time Sensorine ural hearing loss of bilateral ears 872433132 Active 2018 Sensorine ural hearing loss, bilateral ; Note: Date Diagnosed : 02/28/2019 11:43 AM (H90.3) Not Available [facility] 4 02:26:42 Impacted cerumen in right ear 59614044412 92677 Active 2018 Impacted cerumen, right ear; Note: Date Diagnosed : 02/28/2019 11:01 AM (H61.21) Not Available [facility] 4 02:26:45 Impacted cerumen of bilateral ears 46712249114 66581 Active 2021 Impacted cerumen, bilateral ; Note: Date Diagnosed : 2 3:42 PM (H61.23) RIAZ TALLEY MD [address] [place] [address], [place], [address] , [facility] - [facility] 4 20:58:27 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 Procedures Surgical History Date Name Laterality Status Provider Name and Address Organization Details Recorded Time 07/25/2024 Wax_DP completed RIAZ TALLEY MD [address] [place] [address], [place], [address], [facility] - [facility] 07/25/2024 09:38:07 Imaging Results Imaging Date Name Status LastModified by [email or web address] Details LastModified Time 02/28/2019 imaging/diagno stic result completed Information not available 07/12/2024 21:29:56 02/28/2019 audiogram completed Information not available 07/12/2024 21:30:36 Procedure Notes None recorded. Medical Equipment None Reported. Allergies No known drug allergies Medications Name Sig Start Date Stop Date Status Note LastModified by Organization Details LastModified Time prednison e 10 mg tablet TAKE DIRECTED FOR 7 DAYS. TAKE 3 TABLETS DAILY X 3 DAYS, 2 TABLETS X 2 DAYS, 1 TABLET X 2 DAYS 07/25 completed Not Available Not Available Not Available atorvasta tin 20 mg tablet active Not Available Not Available Not Available oxybutyni n chloride ER 10 mg tablet,ex tended release 24 hr TAKE 1 TABLET BY MOUTH EVERY DAY active Not Available Not Available No t Available azithromy tra 250 mg tablet TAKE 2 TABLETS BY MOUTH TODAY, THEN TAKE 1 TABLET DAILY FOR 4 DAYS DIRECTED active Not Available Not Available No t Available ibuprofen 800 mg tablet TAKE 1 TABLET BY MOUTH 3 TIMES A DAY FOR 15 DAYS active Not Available Not Available No t Available meloxicam 15 mg tablet TAKE 1 TABLET BY MOUTH DAILY TAKE AFTER EATING, STOP IF STOMACH UPSET OCCURS OR FOOT PAIN RESOLVES active Not Available Not Available No t Available prednison e 20 mg tablet 2018 active Medicati on ID: [id number] D uration Value: 9 Brand Name: predniso ne Send Method: E-Prescr ibed Sub s Allowed: subs OK Medic ationGen ericName : predniso ne Not Available Not Available Not Available tramadol 50 mg tablet TAKE 1 TABLET BY MOUTH EVERY DAY FOR 7 DAYS active Not Available Not Available No t Available levothyro xine 50 mcg tablet active Not Available Not Available Not Available losartan 25 mg tablet active Not Available Not Available Not Available Aspir-81 mg tablet,de layed release active Medicati on ID: [id number] B rand Name: Aspir-81 Send Method: E-Prescr ibed Sub s Allowed: subs OK Medic ationGen ericName : Aspir-81 Not Available Not Available Not Available amoxicill in 875 mg-potass ium clavulana te 125 mg tablet 09/09 completed Medicati on ID: [id number] D uration Value: 10 Brand Name: amoxicil maco-pot clavulan ate Send Method: E-Prescr ibed Sub s Allowed: subs OK Speci al Instruct ion: TK 1 T PO BID FOR 10 DAYS Med icationG enericNa me: amoxicil maco-pot clavulan ate Not Available Not Available Not Available Vitals Date Recorded Body height Body mass index (BMI) Body weight Provider Name and Address Organization Details Last Updated DateTime 07/25/2024 160.02 cm 29.2 kg/m2 42568.74 g Mamie Morel [place] - [facility] 07/25/2024 09:30:47 Social History None recorded. Functional Status None recorded. Mental Status None recorded. Family History Nothing Reported. Medical History No medical history recorded. Gynecological HistoryNo gynecological history recorded. Obstetrics History GPAL:G 0 P 0 0 0 0 Past Encounters Encounter ID Performer Location Encounter Start Date Encounter Closed Date Diagnosis/Indication Diagnosis SNOMED-CT Code Diagnosis ICD10 Code Diagnosis Note [id number] RIAZ TALLEY MD [facility] [address] [place] [address] 07/25/2024 09:27:13 07/25/2024 09:40:35 Impacted cerumen in right ear [id number] 107770 H61.21 moderate exostosis noted on left ear canal Health Concerns Section Related Observation LastModified by Organization Detai ls LastModified Time None Recorded Concern Status LastModified by Organization Details LastModified Time None Recorded Advance Directives Directive None Recorded Payers Encounter Date Sequence Insurance Name Policy Number Policy Briseno Covered Member ID Briseno Member ID Guarantor Name 07/25/2024 2 [place] [id number] Melony Bull [id number] Melony Bull 07/25/2024 1 [place] B[place] [facility] [employer] Melony Bull [id number] Melony Bull Notes Date Note Type Note Provider Name and Address Organization Details Recorded Time 07/25/2024 text/html ears blockedprev iously noted cerumen bilaterally RIAZ TALLEY MD [address] [place] [address], [phone], [place] - [facility] 07/25/2024 09:39:09 OBGyn Episode No OBEpisode recorded.
--- OUTSIDE RECORDS SUMMARY | 2025-01-03 14:15 | XMS_ITS ---
Author Organization [employer] [facility] Address [address] [employer] [employer] [facility] [address] [place] [address] Care Team Providers Care Escort Vehicle Driver Name Role Phone ALLIE DIMAS Primary Care Provider BREANN Dawson Unavailable [phone] REASON FOR VISIT HR MEDICARE PE Encounters Encounter Location Date Provider Diagnosis [facility] [address] [address] 08/14/2024 BREANN COOL Encounter for gynecological examination (general) (routine) without abnormal findings Z01.419 and Encounter for screening mammogram for malignant neoplasm of breast Z12.31 Assessments Encounter Date Diagnosis (ICD Code) Assessment Notes Treatment Notes Treatment Clinical Notes Section Notes 08/14/2024 Encounter for gynecological examination (general) (routine) without abnormal findings (ICD-10 - Z01.419) During the visit, the following areas of concern were addressed: Discussed sstopping cervical cancer screening as per ASCCP guidelines. Advised continued annual pelvic exams. Patient encouraged to increase her level of exercise. SBE technique encouraged/tau ght. Patient reminded when annual mammogram is due. Patient encouraged to keep colon screening up to date. 08/14/2024 Encounter for screening mammogram for malignant neoplasm of breast (ICD-10 - Z12.31) Plan Of Treatment Treatment Notes Assessment Notes Encounter for gynecological examination (general) (routine) without abnormal findings During the visit, the following areas of concern were addressed: Discussed sstopping cervical cancer screening as per ASCCP guidelines. Advised continued annual pelvic exams. Patient encouraged to increase her level of exercise. SBE technique encouraged/taught. Patient reminded when annual mammogram is due. Patient encouraged to keep colon screening up to date. Pending Test Test Name Order Date MM Digital Screening Mammogram 3D 2023 Next Appt Details Follow Up: 1 Year, Reason: Y early Manager Mobility Exam Provider Name:BREANN Gee ILANA Demarco, 10/11/2025 09:30:00 AM, [address], [address], [place], [address], Progress Notes * YANG HAYESOB: 3 (74 yo F)Acc No.[id number]:08/14/2024 PROGRESS NOTES Patient:?FIDEL HAYES Provider:?BREANN COOL MD :1950???Age:73 Y???Sex:Female D ate:08/14/2024 Address:[address] [place] [address], , [facility] Pcp:AIDAN MONTGOMERY Subjective: * Chief Complaints: * ???1. HR MEDICARE PE. 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 ? She has been in state of good health since her last exam. She has the following concerns: At last year's routine sales ambassador exam, I found a 3mm rectal mass and referred her to Dr Wilcox for colonoscopy, which was scheduled in 11/2023. She reports ? She has received the Moderna Covid-19 vaccine and booster. ? Relationship status: * for 28 years. She is not sexually active, not due to dyspareunia. Sexual partner(s): male. She does not wish to have STI testing. ? She does *not report vaginal dryness. She does not have hot flashes/night sweats. ? The patient has not had an abnormal pap smear since she was in her 20's, and never needed any treatment. Her most recent pap smear was 02/22/18 - NIL, neg HR HPV. Paps are no longer indicated. ? She has not been diagnosed with breast cancer. She does *not have a family history of breast cancer. Her last mammogram was in *04/2023 - she had to have a biopsy on the left breast. She gets her mammograms at [facility]. ? She does have a family history of colon cancer - maternal uncle. She a has had a colonoscopy. The last colonoscopy was *2013. ? The patient does* exercise. She previously exercised x 4 days/week by doing classes at the [employer] - balance and agility, strength training, cardio. * ROS:?Annual Manager Mobility Exam ROS:?Bowel habit changes?denies.?Bladder symptoms?denies.?Vaginal discharge, unusual?denies.?Vaginal itch or odor?denies.?weight or appetite changes?denies.?Chest pains, SOB?denies.?depression?denies.?Breast:?Denies?Breast lump.?Denies?Nipple discharge.?Hematology:?Denies?Swollen glands.?Skin:?Patient denies?changing moles.?Psychiatric:?Denies?Anxiety.? * Medical History:? Objective: * Vitals:? * Examination: ???General Examination: ?GENERAL APPEARANCE:?in no acute distress, well developed, well nourished, front office secretary present in room.?HEAD:?normocephalic, atraumatic.?NECK/THYROID:?neck supple, full range of motion, thyroid normal.?LYMPH NODES:?no axillary or supraclavicular adenopathy.?SKIN:? normal, good turgor, no rashes, no suspicious lesions.?BREASTS:? normal, no dimpling, no discharge, no drainage, no masses palpable bilaterally, nontender.?ABDOMEN:? soft, non-tender, non distended without masses or hepatosplenomegay.?RECTAL:? normal tone, no masses palpable.?BACK:? no costovertebral angle tenderness.?FEMALE GENITOURINARY:?Vulva without lesions or masses, vagina pink without abnormal discharge, lesions or masses, cervix appears normal and is not tender to palpation, uterus is normal size, mobile, nontender and anteverted, ovaries are not palpable.?NEUROLOGIC:? alert and oriented, gait normal.?PSYCH:? alert, oriented, cognitive function intact, cooperative with exam, good eye contact, mood/affect full range, speech clear.? Assessment: * Assessment: 1.?Encounter for gynecologic al examination (general) (routine) without abnormal findings - Z01.419 (Primary)???2.?Encounter for screening mammogram for malignant neoplasm of breast - Z12.31??? Plan: * Treatment: 2.?Encounter for screening m ammogram for malignant neoplasm of breast?Imaging: MM Digital Screening Mammogram 3D * Follow Up:?1 Year (Reason: Y early Manager Mobility Exam) * Images: Billing Information: * Visit Code:? 80101 Preventive Care Est Pt. Age 65 and over. * Procedure Codes:? 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 She has been in state of good health since her last exam. She has the following concerns: At last year's routine sales ambassador exam, I found a 3mm rectal mass and referred her to Dr Wilcox for colonoscopy, which was scheduled in 11/2023. She reports She has received the Moderna Covid-19 vaccine and booster. Relationship status: * for 28 years. She is not sexually active, not due to dyspareunia. Sexual partner(s): male. She does not wish to have STI testing. She does *not report vaginal dryness. She does not have hot flashes/night sweats. The patient has not had an abnormal pap smear since she was in her 20's, and never needed any treatment. Her most recent pap smear was 02/22/18 - NIL, neg HR HPV. Paps are no longer indicated. She has not been diagnosed with breast cancer. She does *not have a family history of breast cancer. Her last mammogram was in *04/2023 - she had to have a biopsy on the left breast. She gets her mammograms at [facility]. She does have a family history of colon cancer - maternal uncle. She a has had a colonoscopy. The last colonoscopy was *2013. The patient does* exercise. She previously exercised x 4 days/week by doing classes at the [employer] - balance and agility, strength training, cardio. Examination Category Sub-Category Detail Notes Category Not es General Examination GENERAL APPEARANCE: in no ac flip distress, well developed, well nourished, front office secretary present in room HEAD: normocephalic, atrau matic NECK/THYROID: neck supple, full ra nge of motion, thyroid normal ABDOMEN: soft, non-tender, no n distended without masses or hepatosplenomegay NEUROLOGIC: alert and oriented, gait normal SKIN: normal, good turgor, no rashes, no suspicious lesions BACK: no costovertebral an gle tenderness BREASTS: normal, no dimpling, no discharge, no drainage, no masses palpable bilaterally, nontender LYMPH NODES: no axillary or supra clavicular adenopathy RECTAL: normal tone, no mass es palpable PSYCH: alert, oriented, cog nitive function intact, cooperative with exam, good eye contact, mood/affect full range, speech clear FEMALE GENITOURINARY: Vulva without lesi ons or masses, vagina pink without abnormal discharge, lesions or masses, cervix appears normal and is not tender to palpation, uterus is normal size, mobile, nontender and anteverted, ovaries are not palpable
--- OUTSIDE RECORDS SUMMARY | 2025-01-03 14:15 | XMS_ITS ---
Author Organization [facility] Address [address] [facility] [address] [place] [address] Care Team Providers Care Career Coach Name Role Phone ALLIE DIMAS Primary Care Provider BREANN Dawson Unavailable [phone] REASON FOR VISIT GI request - colonoscopy 12/17/23 Encounters Encounter Location Date Provider Diagnosis [facility] [address] [place] [address] 08/12/2023 BREANN COOL Plan Of Treatment Next Appt Details Provider Name:BREANN Demarco, 10/11/2025 09:30:00 AM, [address] [facility], [address], [place], [address], Progress Notes * COURTNEY HAYESKWABENAOB: 3 (74 yo F)Acc No.[id number]:08/12/2023 Patient:?FIDEL HAYES :1950???Age:72 Y???Sex:Female Address:[address] [place] [address], , [place], [address] * * Date:?
--- OUTSIDE RECORDS SUMMARY | 2025-01-03 14:15 | XMS_ITS | Patient Health Record ---
Author Organization [employer] [facility] Address [address] [address] Care Team Providers Care Hemodialysis Rn Name Role Phone ALLIE DIMAS Primary Care Provider BREANN Dawson Unavailable [phone] Allergies No Known Allergies Reason For Referral No Information Medications Medication SIG (Take, Route, Frequency, Duration) Notes Start Date End Date Status Losartan Potassium 25 MG 1 tablet Orally Once a day for 30 day(s) Active Ibuprofen 800 MG Oral for 15 PRN A ctive oxyBUTYnin Chloride ER 5 MG Oral for 90 Active Vitamin D Active Levothyroxine Sodium 50 MCG Oral for 30 Active Lovastatin 20 MG 1 tablet with the evening meal Orally Once a day Active Social History Tobacco Use: Social History Observation Description Date Details (start date - stop date) Former Smoker NA - NA Tobacco Use/Smoking Question Answer Notes Are you a former smoker How long has it been since you last smoked? > 10 years Alcohol Screen (Audit-C) Question Answer Notes Did you have a drink containing alcohol in the p ast year? No Points 0 Interpretation Negative Sexual History Question Answer Notes Had sex in the past 12 months (vaginal, oral, or anal)? No Tobacco use other than smoking: Question Answer Notes Are you an other tobacco user? 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 Heterosexual Problems Problem Type SNOMED Code ICD Code Onset Dates Problem Status W/U Status Risk Notes Problem Postmenopausal bleeding (11643646) Postmenopausal bleeding (N95.0) Active confirmed Problem Stenosis of cervix (29211921) Stricture and stenosis of cervix uteri (N88.2) Active confirmed Problem Hypothyroidism (83984758) Hypothyroidism, unspecified (E03.9) Active confirmed Problem Abnormal findings on diagnostic imaging of breast (934849632) Other abnormal and inconclusive findings on diagnostic imaging of breast (R92.8) Active confirmed Problem Menopause (358808244) Menopausal and female climacteric states (N95.1) Active confirmed Problem SI - Stress incontinence (48561955) Stress incontinence (female) (male) (N39.3) Active confirmed Problem COVID-19 (448742063) COVID-19 (U07.1) Active confirmed Problem Hyperlipidemia (54174419) Other and unspecified hyperlipidemia (272.4) Active confirmed Major Problem Menopausal symptom (90912342) Symptomatic menopausal or female climacteric states (627.2) Active confirmed Major Vital Signs Temperature 96.9 degrees Fahrenheit 10/06/2024 Blood pressure diastolic 80 mm Hg 10/06/2024 Height 63.00 in 10/06/2024 Blood pressure systolic 118 mm Hg 10/06/2024 Weight 169 lbs 10/06/2024 BMI 29.93 kg/m2 10/06/2024 Encounters Encounter Location Date Provider Diagnosis [address] [place] [address] 10/06/2024 BREANN COOL Encounter for gynecological examination (general) (routine) without abnormal findings Z01.419 and Encounter for screening mammogram for malignant neoplasm of breast Z12.31 Assessments Encounter Date Diagnosis (ICD Code) Assessment Notes Treatment Notes Treatment Clinical Notes Section Notes 10/06/2024 Encounter for gynecological examination (general) (routine) without [...] to keep colon screening up to date. 10/06/2024 Encounter for screening mammogram for malignant neoplasm of breast (ICD-10 - Z12.31) Plan Of Treatment Pending Test Test Name Order Date Bone Density 02/22/2018 Ultrasound : Sono Hystergram 03/25/2021 THIN PREP,HPV,CHRISTEN IF HPV+ (>29YR)(SCRN) 02/22/2018 MM Digital Mammo Screening 11/26/2015 PELVIC ULTRASOUND W/TRANSVAGINAL 019 MM Digital Screening Mammogram 3D 2020 MM Digital Screening Mammogram 3D 2021 MM Digital Screening Mammogram 3D 2022 MM Digital Screening Mammogram 3D 2023 Next Appt Details Provider Name:BREANN Demarco, 10/11/2025 09:30:00 AM, [address] [facility], [address], [place], [address], Insurance Providers Payer Name Payer Address Payer Phone Subscriber Number Group Number Insured Name Patient Relationship to Insured Coverage Start Date Coverage End Date MEDICARE [address] [place] [id number] FIDEL HAYES Self - patient is the insured MEDEX [address] [place] [address] [id number] FIDEL HAYES Self - patient is the insured Medical (General) History Medical History History ICD Code Other hyperlipidemia E78.4 Menopausal and female climacteric states N95.1 Stricture and stenosis of cervix uteri N 88.2 Stress incontinence (female) (male) N39. 3 Postmenopausal bleeding N95.0 Other abnormal and inconclusive findings on diagnostic imaging of breast R92.8 Hypothyroidism, unspecified E03.9 COVID-19 U07.1 Surgical History Surgery Date(Month/Year) Appendectomy Colonoscopy Endometrial Polypectomy using Truclear, D/C 06/17/21 L breast core bx (fibroadenoma) 04/2021 back surgery 2006 L Breast Bx (Benign) 05/19/23 Hospitalization History Reason Date(Month/Year) See Surgical Hx
--- OUTSIDE RECORDS SUMMARY | 2025-01-03 14:15 | XMS_ITS | Patient Health Record ---
Author Organization [facility] Address [address] [place] [address] Care Team Providers Care Physical Anthropologist Name Role Phone Cb Nelson Primary Care Provider Unavailab Dominic Obrien Unavailable [phone] ALLERGIES No Known Allergies REASON FOR REFERRAL No Information MEDICATIONS Medication SIG (Take, Route, Frequency, Duration) Notes Start Date End Date Status oxyBUTYnin Chloride ER 10 MG Oral for 90 Active Levothyroxine Sodium 50 MCG Oral for 90 Active Aspirin 81mg Active Vitamin D-3 25 MCG (1000 UT) 1 capsule O rally Once a day for 30 day(s) 04/12/2024 Active Ibuprofen 800 MG Oral for 15 PRN A ctive Losartan Potassium 25 MG Oral for 90 Active Atorvastatin Calcium 20 MG Oral for 90 Active Lovastatin Active IMMUNIZATIONS Vaccine Route Administration Date Status Comme nts Influenza Unknown 10/19/2023 Administered SOCIAL HISTORY Sex Assigned At : Social History Observation Description Sex Assigned At Unknown PROBLEMS Problem Type ICD Code Onset Dates Problem Status W/U Status Risk SNOMED Code Notes Problem Colon cancer screening (Z12.11) Active confirmed Colon can cer screening (080931696) Problem Encounter for other preprocedural examination (Z01.818) Active confirmed Pre-procedure evaluation check (189536451) Problem Diverticulosis of large intestine without perforation or abscess without bleeding (K57.30) Active confirmed Diverticul ar disease of colon (323425145) Problem Aspirin long-term use (Z79.82) Active confirmed Long-term current use of aspirin (17516191867248 3) VITAL SIGNS Temperature 97.7 degrees Fahrenheit 04/12/2024 Blood pressure diastolic 00 mm Hg 04/12/2024 Height 64 in 04/12/2024 Blood pressure systolic 000 mm Hg 04/12/2024 Weight 167 lb 2 oz lbs 04/12/2024 BMI 28.68 kg/m2 04/12/2024 Encounters Encounter Location Date Provider Diagnosis [facility] Outpatient [address] [place] [phone] 07/28/2024 Dominic Wilcox Colon cancer screeni ng Z12.11 ; Diverticulosis of large intestine without perforation or abscess without bleeding K57.30 and Other hemorrhoids K64.8 [facility] [address] [place] [address] 04/12/2024 Dominic Wilcox Colon cancer screeni ng Z12.11 ; Aspirin long-term use Z79.82 and Encounter for other preprocedural examination Z01.818 ASSESSMENTS Encounter Date Diagnosis Assessment Notes Treatment Notes Treatment Clinical Notes 07/28/2024 Colon cancer screening (ICD-10 - Z12.11) 07/28/2024 Diverticulosis of large intestine without perforation or abscess without bleeding (ICD-10 - K57.30) 04/12/2024 Colon cancer screening (ICD-10 - Z12.11) Stop aspirin for 1 week before the colonoscopy 04/12/2024 Aspirin long-term us e (ICD-10 - Z79.82) 07/28/2024 Other hemorrhoids (ICD-10 - K64.8) 04/12/2024 Encounter for other preprocedural examination (ICD-10 - Z01.818) PLAN OF TREATMENT Future Test Test Name Order Date COLONOSCOPY 10/27/2013 COLONOSCOPY 04/12/2024 Insurance Providers Payer Name Payer Address Payer Phone Subscriber Number Group Number Insured Name Patient Relationship to Insured Coverage Start Date Coverage End Date MEDICARE OF [place] [address] [place] [address] [id number] FIDEL HAYES Self - patient is the insured MEDEX ATTN CLAIMS [address] [place] [address] [id number] FIDEL HAYES Self - patient is the insured MEDICAL (GENERAL) HISTORY Medical History History ICD Code Hyperlipidemia Screening colonoscopy in 12/2003 with onl y a hyperplastic polyp Denies MS,DM,CVA,Lung disease,renal dise ase She had a negative upper end oscopy, other than a hiatal hernia, in June of [address] Singleton Negative screening colonoscopy in 12/2013 . HTN Hypothyroidism Surgical History Surgery Date(Month/Year) appendectomy tonsillectomy
--- OUTSIDE RECORDS SUMMARY | 2025-01-03 14:15 | XMS_ITS ---
Author Organization [facility] Address [address] [place] [address] Care Team Providers Care Counter Hop Name Role Phone Cb Nelson Primary Care Provider Unavailab Dominic Obrien Unavailable [phone] REASON FOR VISIT Patient presents today for a SCREENING COLON Encounters Encounter Location Date Provider Diagnosis [facility] [address] [place] [address] 12/17/2023 Dominic Wilcox PLAN OF TREATMENT No Information
--- OUTSIDE RECORDS SUMMARY | 2025-01-03 14:15 | XMS_ITS ---
Author Organization [facility] Address [address] [place] [address] Care Team Providers Care Academic Affairs Dean Name Role Phone Cb Nelson Primary Care Provider Unavailab Dominic Obrien Unavailable [phone] REASON FOR VISIT screening PROBLEMS Problem Type ICD Code Onset Dates Problem Status W/U Status Risk SNOMED Code Notes Problem Diverticulosis of large intestine without perforation or abscess without bleeding (K57.30) Active confirmed Diverticul ar disease of colon (372375348) Encounters Encounter Location Date Provider Diagnosis [facility] [place] [address] [place] [phone] 07/28/2024 Dominic Wilcox Colon cancer scree mary kate Z12.11 ; Diverticulosis of large intestine without perforation or abscess without bleeding K57.30 and Other hemorrhoids K64.8 ASSESSMENTS Encounter Date Diagnosis Assessment Notes Treatment Notes Treatment Clinical Notes 07/28/2024 Colon cancer screening (ICD-10 - Z12.11) 07/28/2024 Diverticulosis of large intestine without perforation or abscess without bleeding (ICD-10 - K57.30) 07/28/2024 Other hemorrhoids (ICD-10 - K64.8) PLAN OF TREATMENT No Information
--- OUTSIDE RECORDS SUMMARY | 2025-01-03 14:15 | XMS_ITS ---
Author Organization [facility] Address [address] [address] Care Team Providers Care Teacher Aide Clerical Name Role Phone ALLIE DIMAS Primary Care Provider BREANN Dawson Unavailable [phone] Allergies No Known Allergies REASON FOR VISIT HR MEDICARE PE Medications Medication SIG (Take, Route, Frequency, Duration) Notes Start Date End Date Status Losartan Potassium 25 MG 1 tablet Orally Once a day for 30 day(s) Active Vitamin D Active Lovastatin 20 MG 1 tablet with the evening meal Orally Once a day Active Ibuprofen 800 MG Oral for 15 PRN A ctive oxyBUTYnin Chloride ER 5 MG Oral for 90 Active Levothyroxine Sodium 50 MCG Oral for 30 Active Social History Tobacco Use: Social History [...] Are you an other tobacco user? No Problems Problem Type SNOMED Code ICD Code Onset Dates Problem Status W/U Status Risk Notes Problem COVID-19 (127195774) COVID-19 (U07.1) Active confirmed Vital Signs Temperature 96.9 degrees Fahrenheit 10/06/20 24 Blood pressure systolic 118 mm Hg 10/06/20 24 Blood pressure diastolic 80 mm Hg 024 Height 63.00 in 10/06/2024 Weight 169 lbs 10/06/2024 BMI 29.93 kg/m2 10/06/2024 Encounters Encounter Location Date Provider Diagnosis Total [facility] [address] [place] [address] 10/06/2024 BREANN COOL Encounter for gynecological examination [...] Follow Up: 1 Year, Reason: Y early Management Specialist Exam Provider Name:BREANN Demarco, 10/11/2025 09:30:00 AM, [address], [address], [place], [address], Progress Notes * YANG HAYESOB: 3 (73 yo F)Acc No.[id number]:10/06/2024 PROGRESS NOTES Patient:MELONY CLEMENTE Provider:?BREANN COOL MD :1950???Age:73 Y???Sex:Female D ate:10/06/2024 Address:[address] [place] [address], , [address]IE [place] [id number] Pcp:AIDAN MONTGOMERY Subjective: * Chief Complaints: * ???HR MEDICARE PE * HPI: ???Constitutional:?Melony is a 73yo who 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 ? She has been in state of good health since her last exam. She reports she did have Covid, with a cough that lasted 1.5 months.?She has the following concerns: wonders if oxybutynin causes cancer. A friend told her it did, so she stopped taking it for awhile. But it helps her symptoms and she restarted it. In searching UpToDate, there are no references to oxybutynin causing cancer - patient informed. At last year's routine grocery cashier exam, I found a 3mm rectal mass and referred her to Dr Wilcox for colonoscopy, which was scheduled in 11/2023. She reports she had the colonoscopy and it revealed diverticulosis and internal hemorrhoids. No polyps detected. ? She has received the Moderna Covid-19 vaccine and booster. ? Relationship status: for 28 years. She is not sexually active, not due to dyspareunia. Sexual partner(s): male. She does not wish to have STI testing. ? She does not report vaginal dryness. She does not have hot flashes/night sweats. ? The patient has not had an abnormal pap smear since she was in her 20's, and never needed any treatment. Her most recent pap smear was 02/22/18 - NIL, neg HR HPV. Paps are no longer indicated. ? She has not been diagnosed with breast cancer. She does not have a family history of breast cancer. Her last mammogram was in 05/05/2024 - normal per patient. She gets her mammograms at [facility]. ? She does have a family history of colon cancer - maternal uncle. She a has had a colonoscopy. The last colonoscopy was 11/2013 - Dr Wilcox felt she wouldn't need any more colonoscopies. ? The patient does not exercise.She stopped due to pain in her feet. She got orthopedic shoes with inserts, as well as cortisone shots. She is better now and plans to return to the [employer] to take classes. She and her are going to see the Jaylen Tobin at the [facility] this weekend. * ROS:?Annual Management Specialist Exam ROS:?Bowel habit changes?denies.?Bladder symptoms?denies.?Vaginal discharge, unusual?denies.?Vaginal itch or odor?denies.?weight or appetite changes?denies.?Chest pains, SOB?denies.?depression?denies.?Breast:?Denies?Breast lump.?Denies?Nipple discharge.?Hematology:?Denies?Swollen glands.?Skin:?Patient denies?changing moles.?Comments?reports recent derm visit.?Psychiatric:?Denies?Anxiety.? * Medical History:? * Management Specialist History:?/ Para?11/22.?Sexual activity?not currently sexually active.?Last Pap Smear:?02/22/2018 NIL,/neg hrHPV.?Mammogram:?04/2024 < 50% density, 05/19/23 Left Breast Ultra With Bx, 05/14/28, 04/27/2022 50-75% density, March or April 2021 @ [facility]02/01/20 < 50% density, 01/25/2019 with additional views on L.?Abnormal Pap Smear:?in 20s, no treatment needed, normal paps since.?LMP and menses?menopause EARLY 50s.?History of STD's:?none.?Colonoscopy?11/2023 - internal hemorrhoids, diverticulosis; 2014, states was WNL.?Bone Density:?03/11/18 WNL. Tscore spine 1.0, LFN -0.2. FRAX 6.9/0.3.? * OB History:?Total pregnancies?, vaginal.? # 1:?normal spontaneous vaginal delivery (), 11/13/80, Mitali, 5lb 3oz (born at 37 weeks), complicated by toxemia, Snow's Syndrome.? * Surgical History:?Appendecto my Colonoscopy Endometrial Polypectomy using Truclear, D/C 06/17/21L breast core bx (fibroadenoma) ack surgery 2006L Breast Bx (Benign) 05/19/23 * Hospitalization/Major Diagno stic Procedure:?See Surgical Hx * Family History:?Mother: ramin mock 96 yrs, dementia, lives at home with Melony's brother.?Father: 56 yrs, [place].?Maternal uncle: COLON [place].?Daughter(s): alive 44 yrs, Snow's Syndrome, had sepsis in 2022.?Spouse: alive 74 yrs, abdominal aneurysms - 5cm, so went for CT scan - awaiting results (09/2024).?1 brother(s) , 2 sister(s) . .? Sister - Lyndsey - 1950 - well Sister - Jossie - 1956 - asthma, DM, HTN Brother - Theodore - 1959 - well Denies family history of breast, uterine or ovarian cancers. * Social History:?Tobacco Use:?Tobacco Use/Smoking?Are you a?former smoker ?How long has it been since you last smoked??> 10 years ?Tobacco use other than smoking?Are you an other tobacco user??No ???Sexual History:?Sexual History?Had sex in the past 12 months (vaginal, oral, or anal)??No ?Details of Sexual History?Are you sexually active??No ???Drugs/Alcohol:?Drugs?Have you used drugs other than those for medical reasons in the past 12 months??No ?Alcohol Screen (Audit-C)?Did you have a drink containing alcohol in the past year??No ?Points?0 ?Interpretation?Negative ???Miscellaneous:?Children: yes, 1. ?Domestic violence: no. ?Exercise: yes, walking. ?Home smoke detector use: yes, smoke detectors, carbon monoxide detector. ?Housing: owns a home. ?Living with: spouse. ?Marital status: , Sulaiman. ?Natural support system: yes. 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 ?Pets: dogs: 2 [employer] terriers. ?Sexual abuse: no. ?Sexually active: no. ?Verbal abuse: no. * Medications:?TakingLosartan Potassium 25 MG Tablet 1 tablet Orally Once a day Vitamin D Lovastatin 20 MG Tablet 1 tablet with the evening meal Orally Once a day Levothyroxine Sodium 50 MCG Tablet Oral oxyBUTYnin Chloride ER 5 MG Tablet Extended Release 24 Hour Oral Ibuprofen 800 MG Tablet Oral , Notes to Pharmacist: PRNTaking Losartan Potassium 25 MG Tablet 1 tablet Orally Once a day Taking Vitamin D Taking Lovastatin 20 MG Tablet 1 tablet with the evening meal Orally Once a day Taking Levothyroxine Sodium 50 MCG Tablet Oral Taking oxyBUTYnin Chloride ER 5 MG Tablet Extended Release 24 Hour Oral Taking Ibuprofen 800 MG Tablet Oral , Notes to Pharmacist: PRNDiscontinuedAspirin EC 81MG 30 1 ORAL daily valACYclovir HCl 500 MG Tablet 1 tablet Orally every 12 hrs at onset of outbreak Medication List reviewed and reconciled with the patientDiscontinued Aspirin EC 81MG 30 1 ORAL daily Discontinued valACYclovir HCl 500 MG Tablet 1 tablet Orally every 12 hrs at onset of outbreak Medication List reviewed and reconciled with the patient * Allergies:?N.K.D.A.no[Allerg ies Verified] Objective: * Vitals:?Ht: 63.00 in, Wt: 16 9 lbs, BMI:29.93Index, BP: 118/80 mm Hg, Temp: 96.9 F. * Examination: ???General Examination: ?GENERAL APPEARANCE:?in no acute distress, well developed, well nourished, heating and ventilating worker present in room.?HEAD:?normocephalic, atraumatic.?NECK/THYROID:?neck supple, full range of motion, thyroid normal.?LYMPH NODES:?no axillary or supraclavicular adenopathy.?SKIN:? normal, good turgor, no rashes, no suspicious lesions.?BREASTS:? normal, no dimpling, no discharge, no drainage, no masses palpable bilaterally, nontender.?ABDOMEN:? soft, non-tender, non distended without masses or hepatosplenomegay.?RECTAL:?deferred due to recent colonoscopy.?BACK:? no costovertebral angle tenderness.?FEMALE GENITOURINARY:?Vulva without lesions [...] breast?Imaging: MM Digital Screening Mammogram 3D * Procedure Codes:? * Follow Up:?1 Year (Reason: Y early Management Specialist Exam) * Images: Billing Information: * Visit Code:? 23092 Preventive Care Est Pt. Age 65 and over. * Procedure Codes:? 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 She has been in state of good health since her last exam. She reports she did have Covid, with a cough that lasted 1.5 months. She has the following concerns: wonders if oxybutynin causes cancer. A friend told her it did, so she stopped taking it for awhile. But it helps her symptoms and she restarted it. In searching UpToDate, there are no references to oxybutynin causing cancer - patient informed. At last year's routine grocery cashier exam, I found a 3mm rectal mass and referred her to Dr Wilcox for colonoscopy, which was scheduled in 11/2023. She reports she had the colonoscopy and it revealed diverticulosis and internal hemorrhoids. No polyps detected. She has received the Moderna Covid-19 vaccine and booster. Relationship status: for 28 years. She is not sexually active, not due to dyspareunia. Sexual partner(s): male. She does not wish to have STI testing. She does not report vaginal dryness. She does not have hot flashes/night sweats. The patient has not had an abnormal pap smear since she was in her 20's, and never needed any treatment. Her most recent pap smear was 02/22/18 - NIL, neg HR HPV. Paps are no longer indicated. She has not been diagnosed with breast cancer. She does not have a family history of breast cancer. Her last mammogram was in 05/05/2024 - normal per patient. She gets her mammograms at [facility]. She does have a family history of colon cancer - maternal uncle. She a has had a colonoscopy. The last colonoscopy was 11/2013 - Dr Wilcox felt she wouldn't need any more colonoscopies. The patient does not exercise.She stopped due to pain in her feet. She got orthopedic shoes with inserts, as well as cortisone shots. She is better now and plans to return to the [employer] to take classes. She and her are going to see the Jaylen Tobin at the [facility] this weekend. Examination Category Sub-Category Detail Notes Category Not es General Examination GENERAL APPEARANCE: in no ac chipewwa distress, well developed, well nourished, heating and ventilating worker present in room HEAD: normocephalic, atrau matic [...] no axillary or supra clavicular adenopathy RECTAL: deferred due to rece nt colonoscopy PSYCH: alert, oriented, cog nitive function intact, cooperative with exam, good eye contact, mood/affect full range, speech clear FEMALE GENITOURINARY: Vulva without lesi ons or masses, vagina pink without abnormal discharge, lesions or masses, cervix appears normal and is not tender to palpation, uterus is normal size, mobile, nontender and anteverted, ovaries are not palpable
--- OUTSIDE RECORDS SUMMARY | 2025-01-03 14:15 | XMS_ITS ---
Author Organization [facility] Address [address] [place] [address] Care Team Providers Care Inventory Specialist Manager Name Role Phone Cb Nelson Primary Care Provider Dominic Rodríguez Unavailable [phone] ALLERGIES No Known Allergies REASON FOR VISIT Patient presents today for a colon screening MEDICATIONS Medication SIG (Take, Route, Frequency, Duration) Notes Start Date End Date Status Vitamin D-3 25 MCG (1000 UT) 1 capsule O rally Once a day for 30 day(s) 04/12/2024 Active Ibuprofen 800 MG Oral for 15 PRN A ctive Losartan Potassium 25 MG Oral for 90 Active Atorvastatin Calcium 20 MG Oral for 90 Active oxyBUTYnin Chloride ER 10 MG Oral for 90 Active Levothyroxine Sodium 50 MCG Oral for 90 Active Aspirin 81mg Active Lovastatin Active SOCIAL HISTORY Tobacco Use: Social History Observation Description Date Details (start date - stop date) Never Smoker NA - NA Sex Assigned At : Social History Observation Description Sex Assigned At Unknown Tobacco Use/Smoking Question Answer Notes Patient is a nonsmoker Alcohol Screen Question Answer Notes Did you have a drink contain ing alcohol in the past year? Yes Points 1 Interpretation Negative How often did you have 6 or more drinks on one occasion in the past year? Never (0 point) How many drinks did you have on a typical day when you were drinking in the past year? 1 or 2 drinks (0 point) How often did you have a dri nk containing alcohol in the past year? Monthly or less (1 point) PROBLEMS Problem Type ICD Code Onset Dates Problem Status W/U Status Risk SNOMED Code Notes Problem Colon cancer screening (Z12.11) Active confirmed Colon cancer screening (669469280) Problem Encounter for other preprocedural examination (Z01.818) Active confirmed Pre-procedure evaluation check (527018131) Problem Aspirin long-term use (Z79.82) Active confirmed Long-term current use of aspirin (8582711930266 03) VITAL SIGNS BMI 28.68 kg/m2 04/12/2024 Blood pressure systolic 000 mm Hg 04/12/20 24 Blood pressure diastolic 00 mm Hg 024 Height 64 in 04/12/2024 Temperature 97.7 degrees Fahrenheit 04/12/20 24 Weight 167 lb 2 oz lbs 04/12/2024 Encounters Encounter Location Date Provider Diagnosis [facility] [address] [place] [address] 04/12/2024 Dominic Wilcox Colon cancer screeni ng Z12.11 ; Aspirin long-term use Z79.82 and Encounter for other preprocedural examination Z01.818 ASSESSMENTS Encounter Date Diagnosis Assessment Notes Treatment Notes Treatment Clinical Notes 04/12/2024 Colon cancer screening (ICD-10 - Z12.11) Stop aspirin for 1 week before the colonoscopy 04/12/2024 Aspirin long-term use (ICD-10 - Z79.82) 04/12/2024 Encounter for other preprocedural examination (ICD-10 - Z01.818) PLAN OF TREATMENT Treatment Notes Assessment Notes Colon cancer screening Stop aspirin for 1 week before the colonoscopy Future Test Test Name Order Date COLONOSCOPY 04/12/2024 Next Appt Details Follow Up: prn, Reason: Progress Notes * Examination Category Sub-Category Detail Notes General Examination GENERAL APPEARANCE: pleasant , well nourished, well developed, in no acute distress EYES: sclera non-icteric NECK/THYROID: no cervical lymphade nopathy, neck supple HEART: S1, S2 normal LUNGS: clear to auscultatio n bilaterally ABDOMEN: normal bowel sounds, no guarding or rigidity, no hepatosplenomegaly, no masses palpable, soft, nontender, nondistended. NEUROLOGIC: alert and oriented SKIN: nonjaundiced, no spi andra angiomata. EXTREMITIES: no edema ORAL CAVITY: mucosa moist
--- OUTSIDE RECORDS SUMMARY | 2025-01-03 14:15 | XMS_ITS | Clinical Summary ---
Author Organization [facility] [facility] Address [address] [place] [address] Care Team Providers Care Life Insurance Salesperson Name Role Phone Unavailable Primary Care Provider Unavailabl e Active Problems Problem Noted Date Diagnosed Date Encounter for immunization 02/04/2024 Immunizations Name Administration Dates Next Due Pfizer Covid-19 Vaccine 12+ 02/03/2024 Social History Tobacco Use Types Packs/Day Years Used Date Smoking Tobacco: Never Assessed Comments Unknown Sex and Gender Information Value Date Recorded Sex Assigned at Female 02/03/2024 1:41 PM EDT Legal Sex Female 10:26 AM EDT Gender Identity Female 02/03/2024 1:41 PM EDT Sexual Orientation Straight 02/03/2024 1: 41 PM EDT Plan of Treatment Health Maintenance Due Date Last Done Comments CT Colonography 1950 Colonoscopy 1950 Colorectal Cancer Screening 1950 Depression Screening 1950 FIT DNA/Cologuard 1950 FIT 1950 FOBT 1950 SDOH Screening 1950 Sigmoidoscopy 1950 Alcohol/Substance Use Screening 1964 Tobacco Screening 1964 Hepatitis C Screening 1970 Mammogram 1992 Zoster Vaccines (3 of 3) 10/03/2018 08/08/2018, 07/24 COVID-19 Vaccine ( season) 2024 02/03/2024, 08/07/2023, 09/05/2022, Additional history exists Influenza Vaccine (#1) 2024 , 08/31/2022, 08/23/2021, Additional history exists RSV Patients and Patients Aged 60 years or older (1 - 1-dose 75+ series) 2027 DTaP/Tdap/Td Vaccines (2 - Td or Tdap) 01/23/2029 01/23/2019 Pneumococcal Vaccine: 50+ Years Completed 05/20/2022, 10/24/2018 HIB Vaccines Aged Out No longer eligi ble based on patient's age to complete this topic HPV Vaccines Aged Out No longer eligi ble based on patient's age to complete this topic Hepatitis A Vaccines Aged Out No long er eligible based on patient's age to complete this topic Hepatitis B Vaccines Aged Out No long er eligible based on patient's age to complete this topic IPV Vaccines Aged Out No longer eligi ble based on patient's age to complete this topic Meningococcal Vaccine Aged Out No nessa darío eligible based on patient's age to complete this topic RSV under 20 months Aged Out No longe r eligible based on patient's age to complete this topic Rotavirus Vaccines Aged Out No longer eligible based on patient's age to complete this topic Insurance MEDICARE [facility] MED CARE
[2025-01-03 14:41] LABS: Appearance Urine Clear; Color Urine Yellow; Glucose Urine UA Negative (Negative); Leukocyte Esterase Urine Small (1+) (Negative); Nitrite Urine Negative (Negative); PH 5.5 (5.0-9.0); UMIC TRIGGER UACC YES; Urine Blood Moderate (2+) (Negative); Urine Ketones Negative (Negative); Urine Protein Negative (Neg-Trace)
[2025-01-03 15:10] LABS: TSH reflex Free T4 0.22 uIU/mL (0.32-4.0)
[2025-01-03 16:52] LABS: Free T4 (Free Thyroxine) 1.28 ng/dL (0.71-1.85)
[2025-01-03 17:43] LABS: Bacteria Urine 4+ (None Seen); Hyaline Casts Urine 0-2 /LPF (0-2); RBC Urine 0-2 /HPF (0-2); Squamous Epithelial Cell Urine 0-2 /HPF (0-2); UACC Culture Trigger YES; WBC Urine 21-50 /HPF (0-5)
== END 2025-01-03 12:54 | disposition home or self-care (01) ==
LOC: HO.LAB 12:53
PROVIDERS: PCP Physician Assistant; Visit Provider Physician Assistant
DX: R23.2 Flushing (principal); R30.0 Dysuria; R39.15 Urgency of urination
CPT/HCPCS: 36415; 81001; 84439; 84443; 87086; 87088; 87186

== ENCOUNTER 2025-04-04 08:47 | Outpatient (AMB) | payer MEDICARE, SELFPAY ==
--- NOTE | 2025-04-04 08:57 | MHC.PC.OV ---
Vital Signs 04/04/25 08:58 Height 5 ft 3 in Weight 168 lb 8 oz BMI 29.8 BP 120/72 Blood Pressure Location Lt brachial Position Sitting Pulse 80 Pulse Source Pulse Oximeter Temp 96.4 F L Temp Source Temporal Artery Scan Pulse Oximetry (%) 95 Oxygen Delivery Method Room Air Intake Visit Reasons: f/u HLD Intake Note: Patient is here to follow up on HLD. Clinical Courier Required: No Financial Compliance Examiner: Not Required per policy Accompanied by: Self / Same As Patient Allergies Lisinopril Allergy (Intermediate, Uncoded 04/04/25 09:13) cough Medication List - Last Reconciled 04/04/25 by Cb Nelson PA-C aspirin 81 mg PO DAILY atorvastatin 20 mg PO DAILY 90 days cholecalciferol (vitamin D3) 50 mcg PO DAILY ibuprofen 800 mg PO TID PRN levothyroxine 75 mcg PO DAILY loperamide 2 mg PO Q8H PRN 7 days losartan 25 mg PO DAILY 90 days oxybutynin chloride ER 10 mg PO DAILY 90 days Tobacco use date assessed: 04/04/25 Fall risk assessment: No Falls in past year Last assessed Fall Risk: 04/04/25 Dental Screening Dental Screen Date: 04/04/25 Did you have a dental visit in the last 12 months?: Yes Did you have a dental problem in the last 6 months where you did not have access to dental care?: No Was dental information given to patient?: Patient has dentist HPI f/u HLD HPI Details Patient is a 74-year-old female here today for follow-up visit.? Patient has a past medical history significant for hypothyroidism, hyperlipidemia, HTN. Concerns-->Report bilateral feet pain that has been a chronic issue over the last few years. Will seeing a signing teacher in [place] about a year ago was getting injections though have not been effective. She does report getting orthotic shoes which did help relieve some of her pain. She does have bilateral jgyy-yq-ykklxzip bunions. She would like to see a new signing teacher for evaluation offer bilateral foot pain Spastic bladder: Has found oxybutynin to be helpful though at 5 mg started to become ineffective. Increased dose to 10 mg though reports fatigue as a side effect. She has been taking the 10 mg oxybutynin at night which has been more effective. Advised to consider pelvic floor therapy for her spastic bladder and urinary frequency. Of note does have chronic red blood cell per urine. Urine cytology negative. She has an upcoming appointment with her elevator constructor helper specialist in will discuss these symptoms with them as well. .. Hypothyroidism:? Most recent TSH low. Patient did have follow up with endocrinology due to her reports of intermittent hot flashes and sweating. Recommendations were to keep her TSH below 2.5 and increasing levothyroxine to 75 mcg. Sleep study was also considered. She reports since increasing her levothyroxine to 75 mcg her hot flashes and sweating episodes have completely resolved. .. Hypertension: Blood pressure acceptable today in office. Blood pressures been well controlled with current dose of losartan. Advised to monitor blood pressure at home with goal blood pressure be below 140/90 .. Hyperlipidemia:? Patient continues on statin therapy without any side effect.? Most recent fasting lipid panel showing acceptable LDL. . Laboratory Tests 08/12/24 10/03/24 10/13/24 09:02 07:39 13:37 TSH 3.33 FSH 45.1 SARS-CoV-2 RNA (RT -PCR) POSITIVE A 01/03/25 13:02 TSH 0.22 L FSH SARS-CoV-2 RNA (RT -PCR) [facility] Medical History Weight gain Flushing Hx of bundle branch block HTN (hypertension) Thyroid disease Hiatal hernia Post-menopausal Surgical History History of esophagogastroduodenoscopy (EGD) History of colonoscopy History of biopsy Breast calcification, left History of back surgery History of tonsillectomy and adenoidectomy History of appendectomy Family History Maternal Uncle Colon cancer Social History Housing: House Alcohol intake: current Alcohol intake frequency: does not drink Patient Tobacco Use Status: Former Tobacco user e-Cigarette/Vaping Use: Never Used Second Hand Smoke Exposure: Yes service: No Current occupational status: retired Cognitive needs: No Hearing needs: No Vision needs: Yes (glasses) Female Reproductive History Menstrual Age of Menarche: 14 Questionnaire PHQ-9 Over the last 2 weeks, how often have you been bothered by any of the following problems? 1. Little interest or pleasure in doing things: not at all 2. Feeling down, depressed, or hopeless: not at all 3. Trouble falling or staying asleep, or sleeping too much: not at all 4. Feeling tired or having little energy: not at all 5. Poor appetite or overeating: not at all 6. Feeling bad about yourself - or that you are a failure or have let yourself or your family down: not at all 7. Trouble concentrating on things, such as reading the newspaper or watching television: not at all 8. Moving or speaking so slowly that other people could have noticed. Or the opposite - being so fidgety or restless that you have been moving around a lot more than usual: not at all 9. Thoughts that you would be better off or of hurting yourself in some way: not at all Total score: 0 Depression Screening Interpretation: Negative Depression Screening Done: Yes 49938 - PHQ-9 Billing: Yes Source: Developed by Drs. Dominic Sheppard, Nova Schulz, August Suarez and colleagues, with an educational stephenie from [employer]. Thrive Questionnaire Date Thrive assessed: 04/02/25 I am a: Patient What is your living situation today?: I have a steady place to live Within the past 12 months, did the food you bought not last and you didn't have the money to get more?: Never true Within the past 12 months, did you worry whether your food would run out before you got money to buy more?: Never true Do you have trouble paying for medicines?: No Do you have trouble getting transportation to medical appointments?: No Do you have trouble paying your heating and electricity bill?: No Do you have trouble taking care of your child, family member or friend?: No Do you have trouble with day-to-day activities such as bathing, preparing meals, shopping, managing finances, etc.?: No Are you currently unemployed and looking for a job?: No Are you interested in more education?: No Please select the resources that you would like help with: None Currently or been in a relationship where the following occur: No concerns reported THRIVE Score: 0 AUDIT C Alcohol Use Questionnaire (AUDIT-C) 1. How often do you have a drink containing alcohol?: Monthly or less 2. How many drinks containing alcohol do you have on a typical day when you are drinking?: 1 or 2 3. How often do you have six or more drinks on one occasion?: Never Total Score: 1 ASHELY-7 AMB Questionnaire ASHELY-7 Date ASHELY - 7 assessed: 04/04/25 Feeling nervous, anxious, or on edge: 0 = Not at all Not being able to stop or control worryin = Not at all Worrying too much about different things: 0 = Not at all Trouble relaxin = Not at all Being so restless that it is hard to sit still: 0 = Not at all Becoming easily annoyed or irritable: 0 = Not at all Feeling afraid as if something awful might happen: 0 = Not at all Total ASHELY-7 score (0-4 normal; 5-9 mild; 10-14 moderate; 15-21 severe): 0 Source: Developed by Drs. Dominic Sheppard, Nova Schulz, August Suarez and colleagues, with an educational stephenie from [employer]. ASHELY-7 Assessment Billing ASHELY-7 Assessment Tool: ASHELY-7 Assessment 30136 Review of Systems Const Denies headache(s) Eyes Denies loss of vision ENT Denies vertigo, Denies dizziness, Denies headache(s) and Denies sore throat Card Denies chest pain, Denies leg edema and Denies lightheadedness Resp Denies cough, Denies hemoptysis and Denies wheezing GI Denies abdominal pain, Denies melena, Denies constipation, Denies diarrhea and Denies vomiting Denies urinary frequency, Denies dysuria and Denies urinary urgency Musc Denies arthralgias, Denies joint swelling, Denies numbness and Denies tingling Neuro Denies Abnormal speech present, Denies behavioral changes, Denies vertigo, Denies dizziness, Denies headache(s), Denies loss of vision, Denies memory loss, Denies numbness and Denies tingling Psych Denies anxiety, Denies behavioral changes, Denies depression, Denies memory loss and Denies panic attacks Luis/Lymph Denies easy bleeding and Denies easy bruising Aller/Immun Denies wheezing Physical exam (Primary Care) Vital Signs: Last Vital Signs Temp 96.4 F L 04/04/25 08:58 Pulse 80 04/04/25 08:58 BP 120/72 04/04/25 08:58 Pulse Ox 95 04/04/25 08:58 Oxygen Delivery Method Room Air 04/04/25 08:58 BMI result Body Mass Index 29.8 Tobacco/Smoking Status: Tobacco use Status Tobacco use date assessed 04/04/25 04/04/25 09:03 Patient Tobacco Use Status Former Tobacco user 04/04/25 09:03 e-Cigarette/Vaping Use Never Used 04/04/25 09:03 PHQ-9: PHQ-9 Score PHQ-9: Total score 0 04/04/25 09:13 Depression Screening Interpretation: Negative Thrive Assessment: Date of Thrive Assessment Date Thrive assessed 04/02/25 04/04/25 09:03 Currently or been in a relationship where the following occur: No concerns reported Const General: healthy appearing, no acute distress, alert and awake Nutritional Appearance: well nourished Orientation/consciousness: oriented to person, oriented to place and oriented to time HENMT Ears: TM's normal bilaterally General nose exam: Normal nasal mucous membranes and turbinates present Eyes Conjunctivae: conjunctivae normal Sclerae: sclerae normal Pupils: Equal, round and reactive pupils present Neck Neck: Yes no lymphadenopathy and Yes no JVD Thyroid: Thyroid normal Carotids: no bruits Resp Effort & Inspection: normal respiratory effort and not tachypneic Auscultation: no crackles, no rales, no rhonchi and no wheezes Cardio Rate: regular rate Rhythm: regular rhythm Heart sounds: no murmurs and normal S1 and S2 GI Palpation (GI): Soft to palpation, nontender, no hepatomegaly and no splenomegaly Auscultation: normal bowel sounds Skin General skin exam: no rashes or lesions noted and dry skin Neuro General: oriented to person, oriented to place and oriented to time Cranial nerves: Yes Equal, round and reactive pupils present Speech: No Abnormal speech present Gait exam (Neuro): Normal gait present Motor exam (neuro): no tremor noted Extrem Right upper extremity: full ROM Left upper extremity: full ROM Right lower extremity: full ROM; no edema Left lower extremity: full ROM; no edema Psych Mental Status: mental status grossly normal Speech and movement: Normal speech and movement present Affect: normal affect Attitude: cooperative Thought process: Normal thought process present Coding Level of Care Code Est Pt Level 4 (56620) Diagnoses Hyperlipidemia, unspecified hyperlipidemia type E78.5 Hyperlipidemia type: unspecified Primary hypertension I10 Hypertension type: primary hypertension Hypothyroidism, unspecified type E03.9 Hypothyroidism type: unspecified Spastic bladder N32.89 Additional Codes PHQ-9 - 55616 - PHQ-9 Billing: Yes ([id number]) ASHELY-7 Assessment Billing - ASHELY-7 Assessment Tool: ASHELY-7 Assessment 61668 ([id number]) Assessment & Plan Assessment & Plan (1) HLD (hyperlipidemia): Code(s): E78.5 - Hyperlipidemia, unspecified Category: Medical Qualifiers: Hyperlipidemia type: unspecified Qualified Code(s): E78.5 - Hyperlipidemia, unspecified Plan: Patient's most recent lipid panel showing good control over total cholesterol and LDL. Will continue her current dose of atorvastatin with goal LDL to remain below 130 (2) HTN (hypertension): Code(s): I10 - Essential (primary) hypertension Category: Medical Qualifiers: Hypertension type: primary hypertension Qualified Code(s): I10 - Essential (primary) hypertension Plan: Patient's blood pressure acceptable today in office. Continues on losartan 25 mg with good effect on her blood pressure. Goal blood pressures to remain below 140/90 (3) Hypothyroidism: Code(s): E03.9 - Hypothyroidism, unspecified Category: Medical Qualifiers: Hypothyroidism type: unspecified Qualified Code(s): E03.9 - Hypothyroidism, unspecified Plan: We have increased her levothyroxine 75 mcg and most recent TSH slightly on low side. Her symptoms though sweating and hot flashes have completely resolved. Will continue to monitor her TSH in consider adjusting dose of levothyroxine according to TSH readings. Fortunately patient now asymptomatic (4) Spastic bladder: Code(s): N32.89 - Other specified disorders of bladder Category: Medical Plan: Patient continues to have spastic bladder type symptoms with urinary incontinence at times. We did discuss the possibility of doing pelvic floor therapy though she is still considering. She does report oxybutynin has been minimally effective. She has upcoming appointment with elevator constructor helper and will discuss her urinary incontinence with them as well. Orders: Orders Microalbumin, Random (w Creat) Today I10 - Essential (primary) hypertension Comprehensive Causey. Panel Fast Today I10 - Essential (primary) hypertension TSH reflex Free T4 Today E03.9 - Hypothyroidism, unspecified Complete Blood Count no Diff Today I10 - Essential (primary) hypertension Lipid Panel Today E78.5 - Hyperlipidemia, unspecified Referrals Podiatry Referral M79.671 - Pain in right foot Patient Instructions: Goal: Blood pressure to be below 140/90 Barriers: Adherence to physical activity and healthy eating habits
[2025-04-04 08:58] VITALS: BP 120/72; PULSE 80; TEMP 35.8; O2SAT 95; BMI 29.8
--- OUTSIDE RECORDS SUMMARY | 2025-04-04 09:09 | XMS_ITS | Clinical Summary ---
Author Organization [email or web address] Address [address] [place] [address] Care Team Providers Care Scanning Clerk Name Role Phone Unavailable Primary Care Provider Unavailabl e Active Problems Problem Noted Date Diagnosed Date Encounter for immunization 02/04/2024 Immunizations Immunization Administration Dates Next Due Pfizer Covid-19 Vaccine [...] age to complete this topic Insurance MEDICARE [facility]
--- OUTSIDE RECORDS SUMMARY | 2025-04-04 09:10 | XMS_ITS | Data Portability ---
Author Organization [place] - [facility], Allergy Address [address] [address] Care Team Providers Care Program Specialist Name Role Phone [facility] Primary Care Provider Assessment Encounter Date [...] with AIDAN amezcua Not available 07/25/2024 09:38:55 02/14/2025 02/14/2025 74-year-old female presents for cerumen removal. Cerumen removed bilaterally. There are exostoses bilaterally, more notably on the right. Nonocclusive. TMs normal to inspection. Will follow-up in 1 year or sooner if needed for cerumen removal. Not available 02/14/2025 11:35:54 Plan of Treatment Reminders Order Date Submit Date Provider Last Modified By Organization Details Last Modified Time Details Appointments Establish ed 15 2025 09:00A Candie MELTON PA-C Not available Not available Not available Lab None recorded. Referral None recorded. Procedures None recorded. Surgeries None recorded. Imaging None recorded. Medication Orders None recorded. Patient TargetsNo targets recorded. Patient InstructionsNo instructions recorded. Reason for Referral None Reported. Results Created Date Observation Date Name Description Value Unit Range Abnormal Flag Note LastModifiedBy Organization Detail LastModifiedTime 07/12/20 24 02/28/2019 imagi ng/di agnos tic resul t No observ ation record ed. [email or web address] Not Available 21:29:56 07/12/20 24 02/28/2019 audio gram No observ ation record ed. [email or web address] Not Available 21:30:36 Result Notes None recorded. Problems Name Problem SNOMED Code Status Onset Date Resolution Date Notes Provider Name and Address Organization Details Recorded Time Sensorine ural hearing loss of bilateral ears 654582485 Active 2018 Sensorine ural hearing loss, bilateral ; Note: Date Diagnosed : 02/28/2019 11:43 AM (H90.3) Not Available [facility] 4 02:26:42 Impacted cerumen in right ear 66973608027 22365 Active 2018 Impacted cerumen, right ear; Note: Date Diagnosed : 02/28/2019 11:01 AM (H61.21) Not Available [facility] 4 02:26:45 Impacted cerumen of bilateral ears 73283655308 29499 Active 2021 Impacted cerumen, bilateral ; Note: Date Diagnosed : 2 3:42 PM (H61.23) RIAZ TALLEY MD [address] [place] [address],[place] [address], [place], [phone] , [facility] - [facility] 4 20:58:27 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 Procedures Surgical History Date Name Laterality Status Provider Name and Address Organization Details Recorded Time 07/25/2024 Wax_DP completed RIAZ TALLEY MD [address] [place] [address],[place] [address], [place], [phone], [place] - [facility] 07/25/2024 09:38:07 Imaging Results Imaging Date Name Status LastModified by Organiz ation Details LastModified Time 02/28/2019 imaging/diagno stic result completed Information not available 07/12/2024 21:29:56 02/28/2019 audiogram completed Information not available 07/12/2024 21:30:36 Procedure Notes None recorded. Medical Equipment None Reported. Allergies No known drug allergies Medications Name Sig Start Date Stop Date Status Note LastModified by Organization Details LastModified Time prednison e 10 mg tablet DIRECTED FOR 9 DAYS. TAKE 3 TABLETS IN THE MORNING X3 DAYS, 2 TABLETS X3 DAYS, 1 TABLET X3 DAYS active Not Available Not Available No t Available atorvasta tin 20 mg tablet TAKE 1 TABLET DAILY active Not Available Not Available No t Available loperamid e 2 mg capsule TAKE 1 CAPSULE BY MOUTH EVERY 8 HOURS NEEDED FOR LOOSE STOOL FOR 7 DAYS active Not Available Not Available No t Available oxybutyni n chloride ER 10 mg [...] Not Available Not Available No t Available benzonata te 200 mg capsule TAKE 1 CAPSULE BY MOUTH THREE TIMES A DAY FOR 5 DAYS active Not Available Not Available No t Available meloxicam 15 mg tablet TAKE 1 TABLET BY MOUTH DAILY TAKE AFTER EATING, STOP IF STOMACH UPSET OCCURS OR FOOT PAIN RESOLVES active Not Available Not Available No t Available prednison e 20 mg tablet 2018 active Medicati on ID: [id number] D uration Value: 9 Brand Name: predniso ne Send Method: E-Prescr ibed Sub s Allowed: subs OK Medic ationGen ericName : predniso ne Not Available Not Available Not Available tramadol 50 mg tablet TAKE 1 TABLET BY MOUTH EVERY DAY FOR 7 DAYS active Not Available Not Available No t Available levothyro xine 75 mcg tablet TAKE 1 TABLET BY MOUTH EVERY DAY active Not Available Not Available No t Available levothyro xine 50 mcg tablet TAKE 1 TABLET DAILY active Not Available Not Available No t Available losartan 25 mg tablet TAKE 1 TABLET DAILY active Not Available Not Available No t Available Aspir-81 mg tablet,de layed release active Medicati on ID: [id number] B rand Name: Aspir-81 Send Method: E-Prescr ibed Sub s Allowed: subs OK Medic ationGen ericName : Aspir-81 Not Available Not Available Not Available ondansetr on 4 mg disintegr ating tablet 4 MG ORALLY EVERY 8 HOURS NEEDED FOR NAUSEA AND VOMITING FOR 5 DAYS active Not Available Not Available No t Available amoxicill in 875 mg-potass ium clavulana te 125 mg tablet 09/09 completed Medicati on ID: [id number] D uration Value: 10 Brand Name: amoxicil maco-pot clavulan ate Send Method: E-Prescr ibed Sub s Allowed: subs OK Speci al Instruct ion: TK 1 T PO BID FOR 10 DAYS Med icationG enericNa me: amoxicil maco-pot clavulan ate Not Available Not Available Not Available nitrofura ntoin monohydra te/macroc rystals 100 mg capsule TAKE 1 CAPSULE BY MOUTH EVERY 12 HOURS FOR 5 DAYS. MUST ADMINIST ER WITH A MEAL/RJ D active Not Available Not Available No t Available Vitals Date Recorded Body height Body mass index (BMI) Body weight Provider Name and Address Organization Details Last Updated DateTime 02/14/2025 160.02 cm 29.2 kg/m2 53775.74 g Trang Goetz [place] - [facility] 02/14/2025 11:14:35 Date Recorded Body height Body mass index (BMI) Body weight Provider Name and Address Organization Details Last Updated DateTime 07/25/2024 160.02 cm 29.2 kg/m2 25660.74 g Mamie Morel [place] [facility] 07/25/2024 09:30:47 Social History None recorded. Functional Status None recorded. Mental Status None recorded. Family History Nothing Reported. Medical History No medical history recorded. Gynecological HistoryNo gynecological history recorded. Obstetrics History GPAL:G 0 P 0 0 0 0 Past Encounters Encounter ID Performer Location Encounter Start Date Encounter Closed Date Diagnosis/Indication Diagnosis SNOMED-CT Code Diagnosis ICD10 Code Diagnosis Note [id number] RIAZ TALLEY MD [facility] [address] [place] [address] 07/25/2024 09:27:13 07/25/2024 09:40:35 Impacted cerumen in right ear [id number] 679031 H61.21 moderate exostosis noted on left ear canal [id number] RENÉ MELTON PA-C [facility] [address] [place] [facility] [address] 02/14/2025 11:08:44 02/14/2025 11:27:23 Sensorineural hearing loss of bilateral ears 781038739 H90.3 Impacted c erumen of bilateral ears 2033413392 062106 H61.23 Health Concerns Section Related Observation LastModified by Organization Detai ls LastModified Time None Recorded Concern Status LastModified by Organization Details LastModified Time None Recorded Advance Directives Directive None Recorded Payers Insurance Date Sequence Insurance Name Policy Number Policy Briseno Covered Member ID Brsieno Member ID Guarantor Name 02/14/2025 2 [place] [id number] Melony Bull [id number] Melony Bull 02/14/2025 1 [place] [facility] Melony Bull [id number] Melony Bull Notes Date Note Type Note Provider Name and Address Organization Details Recorded Time 07/25/2024 text/html ears blockedprev iously noted cerumen bilaterally RIAZ TALLEY MD [address] [place] [address], [phone], [facility] - [facility] 07/25/2024 09:39:09 02/14/2025 text/html 74-year-old krissy jacome presents for cerumen removal. No acute issues since her last visit. TALIA PENA MD [address] [place] [address], [phone], [place] - [facility] 02/14/2025 12:35:30 OBGyn Episode No OBEpisode recorded.
== END 2025-04-04 09:31 | disposition home or self-care (01) ==
LOC: HO.HMCH 08:48
PROVIDERS: PCP Physician Assistant; Visit Provider Physician Assistant
DX: E78.5 Hyperlipidemia, unspecified (principal); I10 Essential (primary) hypertension; E03.9 Hypothyroidism, unspecified; N32.89 Other specified disorders of bladder

== ENCOUNTER → 2025-04-04 08:47 | Outpatient (BNVA) | payer MEDICARE, SELFPAY | PROVIDERS: PCP Physician Assistant; Visit Provider Physician Assistant | DX: E78.5 Hyperlipidemia, unspecified (principal); E03.9 Hypothyroidism, unspecified; I10 Essential (primary) hypertension; N32.89 Other specified disorders of bladder | CPT/HCPCS: 96127; 99212 ==

== ENCOUNTER → 2025-05-11 08:15 | Outpatient (BNV) | payer MEDICARE, SELFPAY | PROVIDERS: PCP Physician Assistant; Visit Provider Internal Medicine | DX: Z12.31 Encounter for screening mammogram for malignant neoplasm of breast (principal) | CPT/HCPCS: 77063; 77067 ==

== ENCOUNTER 2025-05-11 08:17 | Outpatient (REF) | payer MEDICARE, SELFPAY ==
--- NOTE | ~2025-05-11 | MM_ITS ---
EXAMINATION: MM SCREENING DIGITAL BREAST TOMOSYNTHESIS, BILATERAL CLINICAL INFORMATION: Screening. Asymptomatic. COMPARISON: Mammography: Comparison is made with available priors TECHNIQUE: Digital breast mammography with tomosynthesis is performed in both the craniocaudal and mediolateral oblique views along with computer-aided detection (CAD). FINDINGS: There are scattered areas of fibroglandular density (ACR BI-RADS breast composition Category b). Bilateral circumscribed oval masses some of which wax and wane consistent with benign fibrocystic changes. Left marker clip. There are no significant masses, abnormal calcifications, or other abnormalities. MM/MM tomosynthesis screening BI IMPRESSION: No mammographic evidence of malignancy. ASSESSMENT: BI-RADS BI-RADS 2 - Benign Findings RECOMMENDATION: Routine annual mammography screening. 1 year F/U This examination should not preclude the clinical evaluation of a suspicious palpable abnormality. This patient's information was entered into a reminder system with a target due date for their next mammogram. Electronically signed by: Harmony Downing DO 05/17/2025 11:28 AM EDT
--- OUTSIDE RECORDS SUMMARY | 2025-05-11 08:23 | XMS_ITS | Data Portability ---
Author Organization [place] - [facility], Allergy Address [address] [address] Care Team Providers Care Redeye Gunner Name Role Phone [facility] Primary Care Provider [phone] Assessment Encounter Date Assessment Date Assessment LastModified [...] or sooner if needed for cerumen removal. [email or web address] Not available 02/14/2025 11:35:54 Plan of Treatment [...] Sensorine ural hearing loss of bilateral ears [id number] Active 2018 Sensorine ural hearing loss, bilateral ; Note: Date Diagnosed : 02/28/2019 11:43 AM (H90.3) Not Available [facility] 4 02:26:42 Impacted cerumen in right ear [id number] 17306 Active 2018 Impacted cerumen, right ear; Note: Date Diagnosed : 02/28/2019 11:01 AM (H61.21) Not Available [facility] 4 02:26:45 Impacted cerumen of bilateral ears 55902231689 53211 Active 2021 Impacted cerumen, bilateral ; Note: Date Diagnosed : 2 3:42 PM (H61.23) RIAZ TALLEY MD [address] [place] [address],[place] [address], [place], [address] , [facility] - [facility] 4 20:58:27 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 Procedures Surgical History Date Name Laterality Status Provider Name and Address Organization Details Recorded Time 07/25/2024 Wax_DP completed RIAZ TALLEY MD [address] [place] [address],[place] [address], [place], [address], [place] - [facility] 07/25/2024 09:38:07 Imaging Results None recorded. Procedure Notes None recorded. Medical Equipment None [...] mg tablet 2018 active Medicati on ID: [id number] D uration Value: 9 Brand Name: predniso [...] tablet,de layed release active Medicati on ID: [id number] B rand Name: Aspir-81 Send Method: E-Prescr [...] mg tablet 09/09 completed Medicati on ID: [id number] D uration Value: 10 Brand Name: amoxicil [...] Updated DateTime 02/14/2025 160.02 cm 29.2 kg/m2 28459.74 g Trang Goetz [place] - [facility] 02/14/2025 11:14:35 Date Recorded Body height Body mass index (BMI) Body weight Provider Name and Address Organization Details Last Updated DateTime 07/25/2024 160.02 cm 29.2 kg/m2 85913.74 g Mamie Morel [facility] 07/25/2024 09:30:47 Social History None recorded. Functional Status None recorded. Mental Status None recorded. Family History Nothing Reported. Medical History No medical history recorded. Gynecological HistoryNo gynecological history recorded. Obstetrics History GPAL:G 0 P 0 0 0 0 Past Encounters Encounter ID Performer Location Encounter Start Date Encounter Closed Date Diagnosis/Indication Diagnosis SNOMED-CT Code Diagnosis ICD10 Code Diagnosis Note [id number] RIAZ TALLEY MD [facility] [address] [address] 07/25/2024 09:27:13 07/25/2024 09:40:35 Impacted cerumen in right ear [id number] 183072 H61.21 moderate exostosis noted on left ear canal [id number] RENÉ MELTON PA-C [facility] [address] [place] [address] 02/14/2025 11:08:44 02/14/2025 11:27:23 Sensorineural hearing loss of bilateral ears 571406076 H90.3 Impacted c erumen of bilateral ears 9342914103 606902 H61.23 Health Concerns Section Related Observation LastModified by Organization Detai ls LastModified Time None Recorded Concern Status LastModified by Organization Details LastModified Time None Recorded Advance Directives Directive None Recorded Payers Insurance Date Sequence Insurance Name Policy Number Policy Briseno Covered Member ID Briseno Member ID Guarantor Name 02/14/2025 2 [place] [id number] Melony Bull [id number] Melony Bull 02/14/2025 1 [place] [employer] Melony Bull [id number] Melony Bull Notes Date Note Type Note Provider Name and Address Organization Details Recorded Time 07/25/2024 text/html ears blockedprev iously noted cerumen bilaterally RIAZ TALLEY MD [address] [place] [address], [phone], [facility] - [facility] 07/25/2024 09:39:09 02/14/2025 text/html 74-year-old krissy jacome presents for cerumen removal. No acute issues since her last visit. TALIA PENA MD [address] [place] [address], [phone], [facility] - [facility] 02/14/2025 12:35:30 OBGyn Episode No OBEpisode recorded.
== END 2025-05-11 08:18 | disposition home or self-care (01) ==
LOC: HO.MAMMO 08:17
PROVIDERS: PCP Physician Assistant; Visit Provider Physician Assistant
DX: Z12.31 Encounter for screening mammogram for malignant neoplasm of breast (principal)
CPT/HCPCS: 77063; 77067

== ENCOUNTER 2025-09-18 07:08 | Outpatient (REF) | payer MEDICARE, SELFPAY ==
--- OUTSIDE RECORDS SUMMARY | 2025-09-18 07:12 | XMS_ITS | Clinical Summary ---
Author Organization [facility] Address [address] [place] [address] Care Team Providers Care Textile Screen Maker Name Role Phone Unavailable Primary Care Provider [...] 10/03/2018 08/08/2018, 07/24 COVID-19 Vaccine ( season) 2025 02/03/2024, 08/07/2023, 09/05/2022, Additional history exists Influenza Vaccine (#1) 2025 , 08/31/2022, 08/23/2021, Additional history exists RSV [...] patient's age to complete this topic Meningococcal B Vaccine Aged Out No l onger eligible based on patient's age to complete this topic Meningococcal Vaccine Aged Out No nessa darío eligible based on patient's age to complete this topic RSV under 20 months Aged Out No longe r eligible based on patient's age to complete this topic Rotavirus Vaccines Aged Out No longer eligible based on patient's age to complete this topic Insurance MEDICARE [facility] MEDEX MEDICARE SUPPLEMENT
--- OUTSIDE RECORDS SUMMARY | 2025-09-18 07:13 | XMS_ITS | Data Portability ---
Author Organization [place] - [facility], Allergy Address [address] [address] Care Team Providers Care Basket Mender Name Role Phone [facility] Primary Care Provider Assessment Encounter Date [...] or sooner if needed for cerumen removal. [email or web address] Not available 02/14/2025 11:35:54 Plan of Treatment [...] Sensorine ural hearing loss of bilateral ears 105073886 Active 2018 Sensorine ural hearing loss, bilateral ; Note: Date Diagnosed : 02/28/2019 11:43 AM (H90.3) Not Available [facility] 4 02:26:42 Impacted cerumen in right ear 68258822495 38993 Active 2018 Impacted cerumen, right ear; Note: Date Diagnosed : 02/28/2019 11:01 AM (H61.21) Not Available [facility] 4 02:26:45 Impacted cerumen of bilateral ears 64581345881 02707 Active 2021 Impacted cerumen, bilateral ; Note: Date Diagnosed : 2 3:42 PM (H61.23) RIAZ TALLEY MD [address] [place] [address], [place], [address] , [facility] 4 20:58:27 Multiple congenita l exostosis 853167157 Active 2021 Multiple congenita l exostoses ; Note: Date Diagnosed : 2 3:42 PM (Q78.6) RIAZ TALLEY MD [address] [place] [address],[place] [address], [place], [phone] , [facility] 4 20:58:33 Problem Notes None recorded. Procedures Surgical History Date Name Laterality Status Provider Name and Address Organization Details Recorded Time 07/25/2024 Wax_DP completed RIAZ TALLEY MD [address] [place] [address],[place] [address], [place], [address], [place] - [facility] 07/25/2024 09:38:07 Imaging Results None recorded. Procedure [...] mg tablet 2018 active Medicati on ID: [id number] D uration Value: 9 Brand Name: predniso [...] tablet,de layed release active Medicati on ID: [id number] B rand Name: Aspir-81 Send Method: E-Prescr [...] mg tablet 09/09 completed Medicati on ID: [id number] D uration Value: 10 Brand Name: amoxicil [...] Updated DateTime 02/14/2025 160.02 cm 29.2 kg/m2 83612.74 g Trang Goetz [place] - [facility] 02/14/2025 11:14:35 Date Recorded Body height Body mass index (BMI) Body weight Provider Name and Address Organization Details Last Updated DateTime 07/25/2024 160.02 cm 29.2 kg/m2 23555.74 g Mamie Morel [place] - [facility] 07/25/2024 09:30:47 Social History None recorded. Functional Status None recorded. Mental Status None recorded. Family History Nothing Reported. Medical History No medical history recorded. Gynecological HistoryNo gynecological history recorded. Obstetrics History GPAL:G 0 P 0 0 0 0 Past Encounters Encounter ID Performer Location Encounter Start Date Encounter Closed Date Diagnosis/Indication Diagnosis SNOMED-CT Code Diagnosis ICD10 Code Diagnosis IMO Codes Diagnosis Note [id number] RIAZ TALLEY MD [facility] [address] [address] 07/25/2024 09:27:13 07/25/2024 09:40:35 Impacted cerumen in right ear [id number] 913598 H61.21 moderate exostosis noted on left ear canal [id number] RENÉ MELTON PA-C [facility] [address] [place] [address] 02/14/2025 11:08:44 02/14/2025 11:27:23 Sensorineural hearing loss of bilateral ears 600105820 H90.3 Impacted c erumen of bilateral ears 4348692400 047210 H61.23 Health Concerns Section Related Observation LastModified by Organization Detai ls LastModified Time None Recorded Concern Status LastModified by Organization Details LastModified Time None Recorded Advance Directives Directive None Recorded Payers Insurance Date Sequence Insurance Name Policy Number Policy Briseno Covered Member ID Briseno Member ID Guarantor Name 02/14/2025 2 [place] [id number] Melony Bull [id number] Melony Bull 02/14/2025 1 [place] [employer] Melony Bull [id number] Melony Bull Notes Date Note Type Note Provider Name and Address Organization Details Recorded Time 07/25/2024 text/html ROS as noted in the HPI ears blockedpreviously noted cerumen bilaterally RIAZ TALLEY MD [address] [place] [address], [phone], [facility] 07/25/2024 09:39:09 02/14/2025 text/html ROS as noted in the HPI 74-year-old female presents for cerumen removal. No acute issues since her last visit. TALIA PENA MD [address] [place] [address], [phone], [facility] - [facility] 02/14/2025 12:35:30 OBGyn Episode No OBEpisode recorded.
[2025-09-18 07:44] LABS: Hematocrit 43.8 % (37.0-47.0); Hemoglobin 14.7 g/dl (12.0-16.0); Mean Corpuscular HGB Conc 33.6 g/dl (31.0-35.0); Mean Corpuscular Hemoglobin 29.5 pg (27.0-33.0); Mean Corpuscular Volume 87.8 fL (80.0-98.0); NRBC Abs Auto 0.000 X10*3/uL (0.0-0.012); NRBC Pct Auto 0.0 /100WBC (0.0-0.2); Platelet Count 340 X10*3/uL (160-400); Red Blood Count 4.99 X10*6/uL (4.20-5.50); White Blood Count 11.6 X10*3/uL (4.8-10.8)
[2025-09-18 07:55] LABS: Appearance Urine Cloudy; Glucose Urine UA Negative (Negative); PH 5.5 (5.0-9.0); Specific Gravity - Urine 1.020 (1.005-1.025); UMIC TRIGGER UACC YES
[2025-09-18 08:27] LABS: Alanine Aminotransferase 33 U/L (0-31); Albumin Level 4.1 g/dL (3.5-5.0); Alkaline Phosphatase 104 U/L (39-117); Anion Gap 12 (12-20); Aspartate Amino Transferase 25 U/L (5-31); Blood Urea Nitrogen 19 mg/dL (9-16); Calcium 9.1 mg/dL (8.4-10.2); Carbon Dioxide 27 mmol/L (22-29); Chloride 107 mmol/L (96-108); Cholesterol 211 mg/dL (<200); Estimated Glomerular Filt Rate 58; HDL Cholesterol 57 mg/dL (>40); Potassium 4.1 mmol/L (3.3-5.1); Sodium 142 mmol/L (135-145); Total Protein 7.1 g/dL (6.5-8.0); Triglycerides 169 mg/dL (<150)
[2025-09-18 08:39] LABS: Microalbum/Creatinine Ratio Ur 2.9 ug/mg cr (<30)
== END 2025-09-18 07:09 | disposition home or self-care (01) ==
LOC: HO.LAB 07:08
PROVIDERS: PCP Physician Assistant; Visit Provider Physician Assistant
DX: I10 Essential (primary) hypertension (principal); E03.9 Hypothyroidism, unspecified; E78.5 Hyperlipidemia, unspecified
CPT/HCPCS: 36415; 80053; 80061; 81001; 82043; 82570; 84443; 85027

== ENCOUNTER 2025-10-08 09:51 | Outpatient (AMB) | payer MEDICARE, SELFPAY ==
--- NOTE | 2025-10-08 10:00 | A.OFFPC_ITS ---
Vital Signs 10/08/25 10:01 Height 5 ft 3 in Weight 168 lb BMI 29.8 BP 142/74 H Blood Pressure Location Lt brachial Position Sitting Pulse Source Pulse Oximeter Temp 97.1 F Temp Source Temporal Artery Scan Pulse Oximetry (%) 97 Oxygen Delivery Method Room Air Intake Visit Reasons: 6 mo follow up Intake Note: Patient is here to follow up on HTN, HLD, Hypothyroidism. Tomato Paste Maker Required: No Hands Assembler: Not Required per policy Accompanied by: Self / Same As Patient Allergies Lisinopril Allergy (Intermediate, Uncoded 10/08/25 10:16) cough Medication List - Last Reconciled 10/08/25 by Cb Nelson PA-C aspirin 81 mg PO DAILY atorvastatin 20 mg PO DAILY 90 days cholecalciferol (vitamin D3) 50 mcg PO DAILY ibuprofen 800 mg PO TID PRN levothyroxine 75 mcg PO DAILY loperamide 2 mg PO Q8H PRN 7 days losartan 25 mg PO DAILY 90 days oxybutynin chloride ER 10 mg PO DAILY 90 days Tobacco use date assessed: 10/08/25 Fall risk assessment: No Falls in past year Last assessed Fall Risk: 10/08/25 Dental Screening Dental Screen Date: 04/04/25 Did you have a dental visit in the last 12 months?: Yes Did you have a dental problem in the last 6 months where you did not have access to dental care?: No Was dental information given to patient?: Patient has dentist HPI 6 mo follow up HPI Details Patient is a 74-year-old female here today for follow-up visit.? Patient has a past medical history significant for hypothyroidism, hyperlipidemia, HTN. Cyclic cough: She reports a cough that has persisted for two months, which is a recurrent issue she has experienced annually around July or August for the past 15 years. The cough is associated with flatulence, and urinary incontinence. She states that her urinary incontinence medication, oxybutynin, is not effective when she has the cough. For the current episode, she visited a walk-in clinic and was prescribed prednisone and another unspecified medication, neither of which resolved the cough. She was also told she has postnasal drip. Past workup for this recurrent cough includes negative skin prick allergy testing and negative testing for asthma. A chest x-ray performed last year for the same issue was unremarkable for pneumonia or bronchitis. .. Hypothyroidism:? Most recent TSH stable at 3, previous TSH low at 0.22 She reports since increasing her levothyroxine to 75 mcg her hot flashes and sweating episodes have completely resolved. .. Hypertension: Blood pressure slightly elevated today in office today in office. She does monitor her blood pressure at a local senior center reports 110s over 80s. Blood pressures been well controlled with current dose of losartan. Advised to monitor blood pressure at home with goal blood pressure be below 140/90 .. Hyperlipidemia:? Patient continues on statin therapy without any side effect.? Most recent fasting lipid panel showing acceptable LDL. [facility] Medical History Weight gain Flushing Hx of bundle branch block HTN (hypertension) Thyroid disease Hiatal hernia Post-menopausal Surgical History History of esophagogastroduodenoscopy (EGD) History of colonoscopy History of biopsy Breast calcification, left History of back surgery History of tonsillectomy and adenoidectomy History of appendectomy Family History Maternal Uncle Colon cancer Social History Housing: House Alcohol intake: current Alcohol intake frequency: does not drink Patient Tobacco Use Status: Former Tobacco user e-Cigarette/Vaping Use: Never Used Second Hand Smoke Exposure: Yes service: No Current occupational status: retired Cognitive needs: No Hearing needs: No Vision needs: Yes (glasses) Female Reproductive History Menstrual Age of Menarche: 14 Questionnaire PHQ-9 Over the last 2 weeks, how often have you been bothered by any of the following problems? 1. Little interest or pleasure in doing things: not at all 2. Feeling down, depressed, or hopeless: not at all 3. Trouble falling or staying asleep, or sleeping too much: not at all 4. Feeling tired or having little energy: not at all 5. Poor appetite or overeating: not at all 6. Feeling bad about yourself - or that you are a failure or have let yourself or your family down: not at all 7. Trouble concentrating on things, such as reading the newspaper or watching television: not at all 8. Moving or speaking so slowly that other people could have noticed. Or the opposite - being so fidgety or restless that you have been moving around a lot more than usual: not at all 9. Thoughts that you would be better off or of hurting yourself in some way: not at all Total score: 0 Depression Screening Interpretation: Negative Depression Screening Done: Yes 45960 - PHQ-9 Billing: Patient declined-do not bill Source: Developed by Drs. Dominic Sheppard, Nova Schulz, August Suarez and colleagues, with an educational stephenie from [employer]. Thrive Questionnaire Date Thrive assessed: 04/02/25 I am a: Patient What is your living situation today?: I have a steady place to live Within the past 12 months, did the food you bought not last and you didn't have the money to get more?: Never true Within the past 12 months, did you worry whether your food would run out before you got money to buy more?: Never true Do you have trouble paying for medicines?: No Do you have trouble getting transportation to medical appointments?: No Do you have trouble paying your heating and electricity bill?: No Do you have trouble taking care of your child, family member or friend?: No Do you have trouble with day-to-day activities such as bathing, preparing meals, shopping, managing finances, etc.?: No Are you currently unemployed and looking for a job?: No Are you interested in more education?: No Please select the resources that you would like help with: None Currently or been in a relationship where the following occur: No concerns reported THRIVE Score: 0 AUDIT C Alcohol Use Questionnaire (AUDIT-C) 1. How often do you have a drink containing alcohol?: Monthly or less 2. How many drinks containing alcohol do you have on a typical day when you are drinking?: 1 or 2 3. How often do you have six or more drinks on one occasion?: Never Total Score: 1 ASHELY-7 AMB Questionnaire ASHELY-7 Date ASHELY - 7 assessed: 04/04/25 Feeling nervous, anxious, or on edge: 0 = Not at all Not being able to stop or control worryin = Not at all Worrying too much about different things: 0 = Not at all Trouble relaxin = Not at all Being so restless that it is hard to sit still: 0 = Not at all Becoming easily annoyed or irritable: 0 = Not at all Feeling afraid as if something awful might happen: 0 = Not at all Total ASHELY-7 score (0-4 normal; 5-9 mild; 10-14 moderate; 15-21 severe): 0 Source: Developed by Drs. Dominic Sheppard, Nova Schulz, August Suarez and colleagues, with an educational stephenie from [employer]. Review of Systems Const Denies headache(s) Eyes Denies loss of vision ENT Denies vertigo, Denies dizziness, Denies headache(s) and Denies sore throat Card Denies chest pain, Denies leg edema and Denies lightheadedness Resp Reports cough, Denies hemoptysis and Denies wheezing GI Denies abdominal pain, Denies melena, Denies constipation, Denies diarrhea and Denies vomiting Denies urinary frequency, Denies dysuria, Reports urinary incontinence and Denies urinary urgency Musc Denies arthralgias, Denies joint swelling, Denies numbness and Denies tingling Neuro Denies Abnormal speech present, Denies behavioral changes, Denies vertigo, Denies dizziness, Denies headache(s), Denies loss of vision, Denies memory loss, Denies numbness and Denies tingling Psych Denies anxiety, Denies behavioral changes, Denies depression, Denies memory loss and Denies panic attacks Luis/Lymph Denies easy bleeding and Denies easy bruising Aller/Immun Denies wheezing Physical exam (Primary Care) Vital Signs: Last Vital Signs Temp 97.1 F 10/08/25 10:01 BP 142/74 H 10/08/25 10:01 Pulse Ox 97 10/08/25 10:01 Oxygen Delivery Method Room Air 10/08/25 10:01 Care Plan Goal for BP management: Continue losartan 25 mg on a daily basis, continue exercising in eating well. Next steps: Continue monitoring blood pressure at home and at the senior center with goal blood pressure to be below 140/90 BMI result Body Mass Index 29.8 Tobacco/Smoking Status: Tobacco use Status Tobacco use date assessed 10/08/25 10/08/25 10:03 Patient Tobacco Use Status Former Tobacco user 10/08/25 10:03 e-Cigarette/Vaping Use Never Used 10/08/25 10:03 PHQ-9: PHQ-9 Score PHQ-9: Total score 0 10/08/25 10:08 Depression Screening Interpretation: Negative Thrive Assessment: Date of Thrive Assessment Date Thrive assessed 04/02/25 10/08/25 10:03 Currently or been in a relationship where the following occur: No concerns reported Const General: healthy appearing, no acute distress, alert and awake Nutritional Appearance: well nourished Orientation/consciousness: oriented to person, oriented to place and oriented to time HENMT Ears: TM's normal bilaterally General nose exam: Normal nasal mucous membranes and turbinates present Eyes Conjunctivae: conjunctivae normal Sclerae: sclerae normal Pupils: Equal, round and reactive pupils present Neck Neck: Yes no lymphadenopathy and Yes no JVD Thyroid: Thyroid normal Carotids: no bruits Resp Effort & Inspection: normal respiratory effort and not tachypneic Auscultation: no crackles, no rales, no rhonchi and no wheezes Cardio Rate: regular rate Rhythm: regular rhythm Heart sounds: no murmurs and normal S1 and S2 GI Palpation (GI): Soft to palpation, nontender, no hepatomegaly and no splenomegaly Auscultation: normal bowel sounds Skin General skin exam: no rashes or lesions noted and dry skin Neuro General: oriented to person, oriented to place and oriented to time Cranial nerves: Yes Equal, round and reactive pupils present Speech: No Abnormal speech present Gait exam (Neuro): Normal gait present Motor exam (neuro): no tremor noted Extrem Right upper extremity: full ROM Left upper extremity: full ROM Right lower extremity: full ROM; no edema Left lower extremity: full ROM; no edema Psych Mental Status: mental status grossly normal Speech and movement: Normal speech and movement present Affect: normal affect Attitude: cooperative Thought process: Normal thought process present Coding Level of Care Code Est Pt Level 4 (97739) Diagnoses Hyperlipidemia, unspecified hyperlipidemia type E78.5 Hyperlipidemia type: unspecified Primary hypertension I10 Hypertension type: primary hypertension Hypothyroidism, unspecified type E03.9 Hypothyroidism type: unspecified Subacute cough R05.2 Cough type: subacute Assessment & Plan Assessment & Plan (1) HLD (hyperlipidemia): Code(s): E78.5 - Hyperlipidemia, unspecified Category: Medical Qualifiers: Hyperlipidemia type: unspecified Qualified Code(s): E78.5 - Hyperli pidemia, unspecified Plan: Patient's most recent lipid panel showing good control over total cholesterol and LDL. Will continue her current dose of atorvastatin with goal LDL to remain below 130 (2) HTN (hypertension): Code(s): I10 - Essential (primary) hypertension Category: Medical Qualifiers: Hypertension type: primary hypertension Qualified Code(s): I10 - Essential (primary) hypertension Plan: Patient's blood pressure slightly elevated today in office. She reports at home blood pressures are stable. Will hold off on increasing her losartan at this time.. Continues on losartan 25 mg with good effect on her blood pressure. Goal blood pressures to remain below 140/90 (3) Hypothyroidism: Code(s): E03.9 - Hypothyroidism, unspecified Category: Medical Qualifiers: Hypothyroidism type: unspecified Qualified Code(s): E03.9 - Hypothyroidism, unspecified Plan: Most recent TSH stable at 3. Will continue levothyroxine at 75 mcg daily. Will continue to monitor her TSH in consider adjusting dose of levothyroxine according to TSH readings. Fortunately patient now asymptomatic (4) Cough: Code(s): R05.9 - Cough, unspecified Category: Medical Qualifiers: Cough type: subacute Qualified Code(s): R05.2 - Subacute cough Plan: Given the chronic, seasonal nature of the patient's cough, which has been unresponsive to previous treatments including prednisone, a trial of Montelukast will be initiated. A 30-day supply will be prescribed to be taken daily at night to assess its effect on her symptoms. To further investigate a possible allergic etiology, a regional allergy panel blood test will be ordered. A referral to a coach driver was discussed as a future option if the current plan is not effective.de Orders: Orders IgE Antibody (Anti-IgE IgG) Today R05.2 - Subacute cough Lipid Panel 6 Months E78.5 - Hyperlipidemia, unspecified Resp Allergy Profile Region I Today R05.2 - Subacute cough, R05.9 - Cough, unspecified TSH reflex Free T4 6 Months E03.9 - Hypothyroidism, unspecified Comprehensive [place]. Panel Fast 6 Months I10 - Essential (primary) hypertension Complete Blood Count no Diff 6 Months I10 - Essential (primary) hypertension Medications: New montelukast 10 mg PO DAILY 30 tabs 3RF 30 days R05.2 - Subacute cough
[2025-10-08 10:01] VITALS: BP 142/74; TEMP 36.2; O2SAT 97; BMI 29.8
== END 2025-10-08 10:35 | disposition home or self-care (01) ==
LOC: HO.HMCH 09:52
PROVIDERS: PCP Physician Assistant; Visit Provider Physician Assistant
DX: E78.5 Hyperlipidemia, unspecified (principal); I10 Essential (primary) hypertension; E03.9 Hypothyroidism, unspecified; R05.2 Subacute cough

== ENCOUNTER → 2025-10-08 09:51 | Outpatient (BNVA) | payer MEDICARE, SELFPAY | PROVIDERS: PCP Physician Assistant; Visit Provider Physician Assistant | DX: E78.5 Hyperlipidemia, unspecified (principal); I10 Essential (primary) hypertension; E03.9 Hypothyroidism, unspecified; R05.2 Subacute cough | CPT/HCPCS: 99212 ==

== ENCOUNTER 2025-10-09 12:53 | Outpatient (REF) | payer MEDICARE, SELFPAY ==
--- OUTSIDE RECORDS SUMMARY | 2025-10-10 04:17 | XMS_ITS | Data Portability ---
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 Name Role Phone [facility] Primary Care Provider [phone] Assessment Encounter Date Assessment Date Assessment LastModified [...] Sensorine ural hearing loss of bilateral ears 916002536 Active 2018 Sensorine ural hearing loss, bilateral ; Note: Date Diagnosed : 02/28/2019 11:43 AM (H90.3) Not Available [facility] 4 02:26:42 Impacted cerumen in right ear 55459349512 58664 Active 2018 Impacted cerumen, right ear; Note: Date Diagnosed : 02/28/2019 11:01 AM (H61.21) Not Available [facility] 4 02:26:45 Impacted cerumen of bilateral ears 80397823250 11850 Active 2021 Impacted cerumen, bilateral ; Note: Date Diagnosed : 2 3:42 PM (H61.23) RIAZ TALLEY MD [address] [place] [address], [place], [phone] , [facility] 4 20:58:27 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 Procedures Surgical History Date Name Laterality Status Provider Name and Address Organization Details Recorded Time 07/25/2024 Wax_DP completed RIAZ TALLEY MD [address] [place] [address],[place] [address], [place], [phone], [place] - [facility] 07/25/2024 09:38:07 Imaging Results None recorded. Procedure [...] mg tablet 2018 active Medicati on ID: [id number] D uration Value: 9 Brand Name: predniso [...] tablet,de layed release active Medicati on ID: [id number] B rand Name: Aspir-81 Send Method: E-Prescr [...] mg tablet 09/09 completed Medicati on ID: [id number] D uration Value: 10 Brand Name: amoxicil [...] Updated DateTime 02/14/2025 160.02 cm 29.2 kg/m2 04180.74 g Trang Goetz [place] [facility] 02/14/2025 11:14:35 Date Recorded Body height Body mass index (BMI) Body weight Provider Name and Address Organization Details Last Updated DateTime 07/25/2024 160.02 cm 29.2 kg/m2 67815.74 g Mamie Morel [place] [facility] 07/25/2024 09:30:47 Social History None recorded. Functional Status None recorded. Mental Status None recorded. Family History Nothing Reported. Medical History No medical history recorded. Gynecological HistoryNo gynecological history recorded. Obstetrics History GPAL:G 0 P 0 0 0 0 Past Encounters Encounter ID Performer Location Encounter Start Date Encounter Closed Date Diagnosis/Indication Diagnosis SNOMED-CT Code Diagnosis ICD10 Code Diagnosis IMO Codes Diagnosis Note [id number] RIAZ TALLEY MD [facility] [address] [address] 07/25/2024 09:27:13 07/25/2024 09:40:35 Impacted cerumen in right ear [id number] 922063 H61.21 moderate exostosis noted on left ear canal [id number] RENÉ MELTON PA-C [facility] [address] [place] [address] 02/14/2025 11:08:44 02/14/2025 11:27:23 Sensorineural hearing loss of bilateral ears 635962098 H90.3 Impacted c erumen of bilateral ears 0382490337 896654 H61.23 Health Concerns Section Related Observation LastModified by Organization Detai ls LastModified Time None Recorded Concern Status LastModified by Organization Details LastModified Time None Recorded Advance Directives Directive None Recorded Payers Insurance Date Sequence Insurance Name Policy Number Policy Briseno Covered Member ID Briseno Member ID Guarantor Name 02/14/2025 2 [place] [id number] Melony Bull [id number] Melony Bull 02/14/2025 1 [place] [employer] Melony Bull [id number] Melony Bull Notes Date Note Type Note Provider Name and Address Organization Details Recorded Time 07/25/2024 text/html ROS as noted in the HPI ears blockedpreviously noted cerumen bilaterally RIAZ TALLEY MD [address] [place] [address], [phone], [facility] 07/25/2024 09:39:09 02/14/2025 text/html ROS as noted in the HPI 74-year-old female presents for cerumen removal. No acute issues since her last visit. TALIA PENA MD [address] [place] [address], [phone], [facility] - [facility] 02/14/2025 12:35:30 OBGyn Episode No OBEpisode recorded.
[2025-10-11 23:08] LABS: Class Alternaria alternata 0; Class Aspergillus fumigatus 0; Class Bermuda Grass 0; Class Birch 0; Class Cat Dander 0; Class Cladosporium herbarum 0; Class Cockroach 0; Class Common Ragweed 0; Class Cottonwood 0; Class Derm. pterony 0; Class Dermatophagoides farinae 0; Class Dog Dander 0; Class Elm 0; Class Maple Box Elder 0; Class Mountain Cedar 0; Class Mouse Urine Protein 0; Class Mugwort 0; Class Oak 0; Class Penicillium crysogenum 0; Class Rough Pigweed 0; Class Sheep Sorrel 0; Class Sycamore 0; Class Timothy Grass 0; Class Walnut Tree 0; Class White Ash 0; Class White Mulberry 0; D002 - IgE D farinae <0.10 kU/L; E001 - IgE Cat Dander <0.10 kU/L; E005 - IgE Dog Dander <0.10 kU/L; G006 - IgE Timothy Grass <0.10 kU/L; I006-IgE Cockroach, German <0.10 kU/L; M002 - IgE Cladosporium herbar <0.10 kU/L; M003 - IgE Aspergillus fumigat <0.10 kU/L; M006 - IgE Alternaria alternat <0.10 kU/L; T001 IgE Maple/Box Elder <0.10 kU/L; T006 - IgE Cedar, Mountain <0.10 kU/L; T007 - IgE Oak, White <0.10 kU/L; T008 IgE Elm, American <0.10 kU/L; T010 - IgE Walnut <0.10 kU/L; T011 - IgE Maple Leaf Sycamore <0.10 kU/L; T014 - IgE Cottonwood <0.10 kU/L; T015 - IgE Ash, White <0.10 kU/L; T070 - IgE White Mulberry <0.10 kU/L; W001 - IgE Ragweed, Short <0.10 kU/L; W006 - IgE Mugwort <0.10 kU/L; W014 IgE Pigweed, Common <0.10 kU/L; W018 IgE Sheep Sorrel <0.10 kU/L
[2025-10-21 02:49] LABS: IgE Antibody (Anti-IgE IgG) 11 ng/mL (<168)
== END 2025-10-09 12:54 | disposition home or self-care (01) ==
LOC: HO.LAB 12:53
PROVIDERS: PCP Physician Assistant; Visit Provider Physician Assistant
DX: Z01.84 Encounter for antibody response examination (principal); R05.2 Subacute cough
CPT/HCPCS: 36415; 82785; 83520; 86003